=== PATIENT | female | born 1940 | race Caucasian/White ===

== ENCOUNTER → 2017-04-20 08:45 | Outpatient (CLI) | payer MEDICARE, OTHER, SELFPAY ==
[2017-04-20 09:14] VITALS: BP 136/66; PULSE 72; RESP 18; TEMP 36.6; O2SAT 100; BMI 26.2
[2017-04-20] MEDS: DiphenhydrAMINE 25 MG Capsule PO (09:38)
[2017-04-20] MEDS: Acetaminophen 325 MG Tablet 650 MG PO (09:38)
[2017-04-20] MEDS: Hydrocortisone Sod Succinate 100 MG/2 ML Vial IV (09:40)
[2017-04-20 10:07] VITALS: BP 114/52; PULSE 60; RESP 16; TEMP 36.1; O2SAT 97
[2017-04-20 11:13] VITALS: BP 104/51; PULSE 66; RESP 16; TEMP 36.3; O2SAT 99
[2017-04-20 12:05] VITALS: BP 114/60; PULSE 69; RESP 16; TEMP 36.6; O2SAT 100
[2017-04-20 12:32] VITALS: BP 113/60; PULSE 73; RESP 16; TEMP 36.8; O2SAT 98
[2017-04-20 13:54] VITALS: BP 95/68; PULSE 79; RESP 16
== END ==
PROVIDERS: Family Provider Internal Medicine; PCP Internal Medicine; Visit Provider Internal Medicine Hematology & Oncology
DX: Z51.89 Encounter for other specified aftercare (principal); K92.2 Gastrointestinal hemorrhage, unspecified; N28.9 Disorder of kidney and ureter, unspecified
CPT/HCPCS: 36430; 86850; 86900; 86920; 86922; J7040; P9016; A4216

== ENCOUNTER 2017-06-20 16:34 | Emergency (ER) | payer MEDICARE, OTHER, SELFPAY ==
[2017-06-20 16:35] VITALS: BP 149/92; PULSE 88; RESP 18; TEMP 36.8; O2SAT 100; BMI 27.3
[2017-06-20 17:50] LABS: Mucous, Urine 0 SEEN /hpf (<or=2+)
[2017-06-20 18:08] LABS: Color, Urine Straw (Yellow); Glucose, Dipstick Normal (Normal); Ketone-Dipstick Negative (Negative); Leukocyte Esterase-Dipstick 500 /ul (Negative); Nitrite-Dipstick Negative (Negative); Occult Blood-Urine 150 /ul (Negative); Protein-Dipstick 15 mg/dl (Negative); Urine Bilirubin Dipstick Negative (Negative); Urine Clarity Clear (Clear); Urine Urobilinogen Normal (Normal)
[2017-06-20 18:23] LABS: Bacteria 1+ /hpf (None Seen); Red Blood Cells-Urine 0-5 SEEN /hpf (0-5); Squamous Epithelial Cells - UA 0-5 SEEN /hpf (5-10); White Blood Cells 25-50 SEEN /hpf (0-5)
--- NOTE | 2017-06-20 18:33 | ED.VISSUMM ---
- ER Visit Summary Date of Service: 06/20/17 Chief Complaint: Urinary tract infection History of Present Illness: The patient is a 77 F who states last night she began to have dysuria and urinary frequency. She notes some chills. States that morning she had a small amount of right-sided discomfort. It has been several years since she has had a urinary tract infection. Physical Examination: Afebrile vital signs are stable Gen: Well-nourished well-developed Head: Normocephalic atraumatic Eyes: Perrl EOMI ENT: TMs clear no rhinorrhea moist mucous membranes Neck: Supple no lymphadenopathy no JVD nontender CVS: Regular rate rhythm no murmurs normal S1-S2 Respiratory: No distress clear to auscultation bilaterally chest nontender Abdomen: Soft nontender nondistended normal bowel sounds no masses Back: Nontender Extremity: Nontender no edema Skin: Normal color no rash Neuro: alert orientated ?3 CN II-XII intact normal strength sensation reflexes gait cerebellar Psych: Normal affect normal mood Test Results: Urinalysis shows 25-50 white cells 1+ bacteria Emergency Department Course and Treatment: Given the urinalysis and her symptoms we will treat with Keflex and Pyridium. Urine culture ordered. Impression: 1. Acute cystitis This note was generated with [employer] dictation software. It may contain incorrect words, spelling, and punctuation that were not noted in review of the chart prior to signing ED Disposition - Plan for ED Patient: Disposition: Home or Assisted Living Chief Complaint: Complaint Instructions: ED UTI Cystitis Female Prescriptions: Phenazopyridine HCl [Pyridium] 200 mg PO BID PRN PRN #10 tab PRN Reason: Pain Cephalexin [Keflex] 500 mg PO BID #14 cap Referrals: Gretta Burch DO [Primary Care Provider] - 1 Week if not improving
[2017-06-20] MEDS: Phenazopyridine 95 MG Tablet 190 MG PO (18:49)
[2017-06-20 18:51] VITALS: BP 129/63; PULSE 83; RESP 16; O2SAT 98
== END 2017-06-20 18:55 | disposition home or self-care (01) ==
LOC: ED 18:48
PROVIDERS: Emergency Provider Emergency Medicine; Family Provider Internal Medicine; PCP Internal Medicine
DX: N30.00 Acute cystitis without hematuria (principal); I10 Essential (primary) hypertension; K21.9 Gastro-esophageal reflux disease without esophagitis; Z79.899 Other long term (current) drug therapy; Z87.440 Personal history of urinary (tract) infections
CPT/HCPCS: 81001; 87077; 87086; 87088; 87186; 99283

== ENCOUNTER → 2017-06-29 08:19 | Outpatient (CLI) | payer MEDICARE, OTHER, SELFPAY ==
[2017-06-29] VITALS (7 sets, daily range): BP systolic 100–123; BP diastolic 49–64; PULSE 62–88; RESP 16–18; TEMP 35.9–36.6; O2SAT 97–100; BMI 26.4
[2017-06-29] MEDS: Acetaminophen 325 MG Tablet 650 MG PO (09:03)
[2017-06-29] MEDS: DiphenhydrAMINE 25 MG Capsule PO (09:03)
[2017-06-29] MEDS: Hydrocortisone Sod Succinate 100 MG/2 ML Vial IV (09:03)
== END ==
PROVIDERS: Family Provider Internal Medicine; PCP Internal Medicine; Visit Provider Internal Medicine Hematology & Oncology
DX: Z51.89 Encounter for other specified aftercare (principal); K92.2 Gastrointestinal hemorrhage, unspecified; N18.3 Chronic kidney disease, stage 3 (moderate)
CPT/HCPCS: 36430; 86850; 86900; 86920; 86922; J7040; P9016; A4216

== ENCOUNTER → 2018-06-14 08:34 | Outpatient (CLI) | payer MEDICARE, OTHER, SELFPAY ==
[2018-06-14 08:48] VITALS: BP 137/55; PULSE 67; RESP 16; TEMP 36.6; O2SAT 100; BMI 26.5
[2018-06-14] MEDS: Acetaminophen 325 MG Tablet 650 MG PO (09:06)
[2018-06-14] MEDS: DiphenhydrAMINE 25 MG Capsule PO (09:06)
[2018-06-14] MEDS: Hydrocortisone Sod Succinate 100 MG/2 ML Vial IV (09:07)
[2018-06-14 09:24] VITALS: BP 137/55; PULSE 67; RESP 16; TEMP 36.6; O2SAT 100
[2018-06-14 09:39] VITALS: BP 107/58; PULSE 67; RESP 18; TEMP 36.6; O2SAT 100
[2018-06-14 10:39] VITALS: BP 121/66; PULSE 69; RESP 16; TEMP 36.5; O2SAT 100
[2018-06-14 11:39] VITALS: BP 140/60; PULSE 74; RESP 18; TEMP 36.4; O2SAT 100
== END ==
PROVIDERS: Family Provider Internal Medicine; PCP Internal Medicine; Referring Provider Internal Medicine Hematology & Oncology; Visit Provider Internal Medicine Hematology & Oncology
DX: D64.9 Anemia, unspecified (principal); K92.2 Gastrointestinal hemorrhage, unspecified
CPT/HCPCS: 36430; 86644; 86850; 86900; 86920; 86922; J7040; P9040; A4216

== ENCOUNTER → 2018-06-28 08:14 | Outpatient (CLI) | payer MEDICARE, OTHER, SELFPAY ==
[2018-06-14 08:48] VITALS: BMI 26.5
[2018-06-28] VITALS (10 sets, daily range): BP systolic 117–149; BP diastolic 49–65; PULSE 67–95; RESP 16–18; TEMP 36.3–36.9; O2SAT 98–100; BMI 26.5
[2018-06-28] MEDS: Acetaminophen 325 MG Tablet 650 MG PO (08:35)
[2018-06-28] MEDS: Hydrocortisone Sod Succinate 100 MG/2 ML Vial IV (08:36)
[2018-06-28] MEDS: DiphenhydrAMINE 25 MG Capsule PO (08:36)
--- NOTE | 2018-06-28 14:13 | NURSING ---
Patient blood still transfusing at 1400, accidentally charted on wrong patient.
== END ==
PROVIDERS: Family Provider Internal Medicine; PCP Internal Medicine; Referring Provider Internal Medicine Hematology & Oncology; Visit Provider Internal Medicine Hematology & Oncology
DX: Z51.89 Encounter for other specified aftercare (principal); D64.9 Anemia, unspecified; K92.2 Gastrointestinal hemorrhage, unspecified
CPT/HCPCS: 36430; 86850; 86870; 86900; 86920; 86922; J7040; J7050; P9016; A4216

== ENCOUNTER → 2018-07-24 13:44 | Outpatient (CLI) | payer MEDICARE, OTHER, SELFPAY ==
[2018-06-28 08:47] VITALS: BMI 26.5
--- NOTE | 2018-07-24 13:48 | RAD_ITS ---
STUDY: X-RAY - RIGHT SHOULDER REASON FOR EXAM: Female, 78 years old. UNABLE TO MOVE THE SHOULDER. SEVERE PAIN TECHNIQUE: 3 view(s) of the shoulder. COMPARISON: None. FINDINGS: Normal glenohumeral articulation. Normal acromioclavicular joint. Normal acromion. Normal humeral head and visualized proximal humerus. The soft tissue structures are unremarkable. There is no demonstrated fracture. Normal visualized pulmonary apex. RAD/Shoulder min 2 Views IMPRESSION: Normal x-ray examination of the shoulder. Electronically Signed: Diaz Amaya MD at 15:53 EDT , Service support ,
== END ==
PROVIDERS: Family Provider Internal Medicine; PCP Internal Medicine; Referring Provider Nurse Practitioner; Visit Provider Nurse Practitioner
DX: M25.511 Pain in right shoulder (principal)
CPT/HCPCS: 73030

== ENCOUNTER → 2018-08-02 17:33 | Outpatient (CLI) | payer MEDICARE, OTHER, SELFPAY ==
[2018-07-24 14:44] VITALS: BMI 26.5
--- NOTE | 2018-08-02 17:43 | MRI_ITS ---
STUDY: MRI RIGHT SHOULDER REASON FOR EXAM: Female, 78 years old. Pain. TECHNIQUE: Standardized fat and water weighted pulse sequences were obtained in all 3 orthogonal planes. COMPARISON: X-ray July 24, 2018 FINDINGS: There is rotator cuff tear of the anterior distal supraspinatus tendon, series 7 images 13/20 and 14/20. There is infraspinatus tendinosis with tendon thickening, but without a demonstrated tendon tear. There is subscapularis tendinosis with tendon thickening, but without a demonstrated tendon tear. Normal teres minor tendon. Normal supraspinatus muscle. Normal infraspinatus muscle. Normal subscapularis muscle. Normal teres minor muscle. There is a small volume joint effusion of the glenohumeral joint. Normal humeral head and visualized proximal humerus. There is tear at the biceps anchor with subluxation of the long head of the biceps . There is tear of the superior labrum. Normal capsulo- ligamentous complex. Normal rotator interval. Normal acromioclavicular articulation. There is a Type II morphology (curved), with a neutral orientation. There is mild fluid distention of the subacromial bursa, consistent with mild subacromial-subdeltoid bursitis. Normal visualized coracohumeral and coracoacromial ligaments. Normal quadrilateral space. Normal axillary space. Normal deltoid muscle. Normal trapezius muscle. MRI/Upper Ext Joint Only(Routine) IMPRESSION: Rotator cuff tear of the supraspinatus tendon. Tear of the superior labrum and biceps anchor with subluxation of the long head of the biceps. Electronically Signed: Jet Ledezma MD at 12:54 EDT , Service support ,
== END ==
PROVIDERS: Family Provider Internal Medicine; PCP Internal Medicine; Referring Provider Orthopaedic Surgery; Visit Provider Orthopaedic Surgery
DX: M75.101 Unspecified rotator cuff tear or rupture of right shoulder, not specified as traumatic (principal); M25.511 Pain in right shoulder
CPT/HCPCS: 73221

== ENCOUNTER 2018-08-13 15:46 | Outpatient (RCR) | payer MEDICARE, OTHER, SELFPAY ==
[2018-08-07 13:13] VITALS: BMI 26.5
--- NOTE | 2018-08-13 16:58 | HP.PTEVAL_ITS ---
Patient's Visit Information IMANI JEFFRIES is a 78 year old F referred to Physical Therapy by Shahriar Ortiz DO with a diagnosis of Shoulder- RTC Tear and SLAP. Date of Evaluation: 08/13/18 Physical Therapist: Machelle Gomes DPT - Visit Plan Frequency: 1x/Week Duration: 4 Weeks Plan: perform I HEP- will call if questions or wants to attempt to attend therapy sessions - Subjective Findings: Right shoulder pain- - insidious onsest. Took Tylenol and BioFreeze on it and then went to the chiropractor. He put it back in place- and told her to ice every 20 minutes. X-rays which were negative- Referred to for an MRI- which showed RTC tear and superior Labral tear. Saw Dr. Barreto- options are surgery, cortisone injection or therapy. Declined surgery- opted for PT to start. 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 Can't make plans for therapy so she needs a home exercise program. If it continues to hurt she can have a Cortisone i njection. Right hand dominate. Does not really move her arm a lot- Pain is located in the shoulder does not radiate. No N/T. Describes pain as sharp/shooting pains. Babies the shoulder. Modifying dressing and is helping. No MOTLEY, blurred vision or dizziness. Fully I prior to injury. Sleep: not disturbed- takes 2 Tylenol and Biofreeze before bed PMHx/Meds: see list from Dr. Barreto. - Objective Posture: significant guarding of the right UE. Gait: no LE deviation but guarding of the right UE. Palpation: tender along anterior shoulder, medial border of the scapula and down the deltoid. ROM: Wrist/Elbow: WNL, Shoulder AROM: flexion- 80 degrees, Abduction: 40 degrees, IR: to bra line, ER: 40 degrees, Catches in AROM and AAROM PROM: WNL in all planes. Strength: 2+/5 in available range shoulder elbow: 4-/5 Wrist: 4+/5 all with pain in the shoulder. Sensation/Reflex: WNL - Goals Goal 1:: Patient will be I with HEP Goal Time Frame: 4-6 Weeks - Rehabilitation Potential Physical Therapy Diagnosis: Patient presents with hypomobility- she has dec reased ROM, strength and muscular endurance leading to poor posture and increased pain with ADL's. Rehabilitation Potential: Fair - Anticipated Interventions Patient/Client Instruction: Educate patient on: Benefits of Fitness Program Therapeutic Exercise to Include: Strength training, Body mechanics, Postural training, Passive ROM, Active ROM, Scapular Strength/Stabilization For the Purpose of:: To improve muscle performance and motor function Thank you for the opportunity to evaluate your patient. For Medicare and Medicare HMO plans, please review the plan of care and approve it. It will need to be FAXED BACK to us at [phone] for Medicare purposes. For Medicare only, by signing this I certify the plan of care. Please let me know if there are questions or concerns regarding this plan of care. Physician Signature: Date:
--- NOTE | 2018-10-29 14:39 | HP.PTDCNRP_ITS ---
HP - Discharge Summary (1) - Patient Information IMANI JEFFRIES was seen in my office for initial evaluation on 08/13/18. The following Plan of Care was established for this patient: Initial Frequency: 1x/Week Initial Duration: 4 Weeks - Anticipated Interventions Patient/Client Instruction: Educate patient on: Benefits of Fitness Program Therapeutic Exercise to Include: Strength training, Body mechanics, Postural t raining, Passive ROM, Active ROM, Scapular Strength/Stabilization For the Purpose of:: To improve muscle performance and motor function This patient was last seen in our office . Pertinent comments regarding their Physical therapy will appear below: Patient has not attended PT in over 6 weeks and is appropriate for d/c and to return to MD for further evaluation as needed. At this point I will be discontinuing this patient from physical therapy. I would be happy to see this patient again in the future if found appropriate by the physician. Thank you! AUBREE MendezT
== END 2018-08-13 19:00 | disposition home or self-care (01) ==
LOC: PT 15:46
PROVIDERS: Family Provider Internal Medicine; PCP Internal Medicine; Referring Provider Orthopaedic Surgery; Visit Provider Orthopaedic Surgery
DX: M75.101 Unspecified rotator cuff tear or rupture of right shoulder, not specified as traumatic (principal); S43.431D Superior glenoid labrum lesion of right shoulder, subsequent encounter
CPT/HCPCS: 97110; 97161

== ENCOUNTER → 2018-09-06 07:49 | Outpatient (CLI) | payer MEDICARE, OTHER, SELFPAY ==
[2018-08-07 13:13] VITALS: BMI 26.5
[2018-09-06] MEDS: Acetaminophen 325 MG Tablet 650 MG PO (08:11)
[2018-09-06] MEDS: DiphenhydrAMINE 25 MG Capsule PO (08:19)
[2018-09-06] MEDS: Hydrocortisone Sod Succinate 100 MG/2 ML Vial IV (08:26)
[2018-09-06 08:30] VITALS: BP 122/64; PULSE 66; RESP 16; TEMP 36.6; O2SAT 100; BMI 26.2
[2018-09-06 08:58] VITALS: BP 129/59; PULSE 61; RESP 16; TEMP 36.9; O2SAT 100
[2018-09-06 09:58] VITALS: BP 127/55; PULSE 72; RESP 16; TEMP 36.8; O2SAT 99
[2018-09-06 11:19] VITALS: BP 108/59; PULSE 76; RESP 16; TEMP 36.8; O2SAT 99
== END ==
PROVIDERS: Family Provider Internal Medicine; PCP Internal Medicine; Referring Provider Internal Medicine Hematology & Oncology; Visit Provider Internal Medicine Hematology & Oncology
DX: Z51.89 Encounter for other specified aftercare (principal); K92.2 Gastrointestinal hemorrhage, unspecified; D64.9 Anemia, unspecified
CPT/HCPCS: 36430; 86850; 86900; 86920; 86922; J7040; P9016; A4216

== ENCOUNTER → 2018-09-27 07:50 | Outpatient (CLI) | payer MEDICARE, OTHER, SELFPAY ==
[2018-09-06 08:30] VITALS: BMI 26.2
[2018-09-27] VITALS (7 sets, daily range): BP systolic 117–141; BP diastolic 62–86; PULSE 63–80; RESP 16–18; TEMP 36.2–37; O2SAT 9–100; BMI 25.9
[2018-09-27] MEDS: DiphenhydrAMINE 25 MG Capsule PO (08:07)
[2018-09-27] MEDS: Hydrocortisone Sod Succinate 100 MG/2 ML Vial IV (08:07)
[2018-09-27] MEDS: Acetaminophen 325 MG Tablet 650 MG PO (08:07)
== END ==
PROVIDERS: Family Provider Internal Medicine; PCP Internal Medicine; Referring Provider Internal Medicine Hematology & Oncology; Visit Provider Internal Medicine Hematology & Oncology
DX: K92.2 Gastrointestinal hemorrhage, unspecified (principal); Z51.89 Encounter for other specified aftercare
CPT/HCPCS: 36430; 86850; 86900; 86920; 86922; J7040; P9016; A4216

== ENCOUNTER → 2018-11-01 08:52 | Outpatient (CLI) | payer MEDICARE, OTHER, SELFPAY ==
[2018-09-27 07:55] VITALS: BMI 25.9
[2018-11-01 09:00] VITALS: BP 135/53; PULSE 58; RESP 16; TEMP 36.1; O2SAT 100
[2018-11-01] MEDS: DiphenhydrAMINE 25 MG Capsule PO (10:54)
[2018-11-01] MEDS: Acetaminophen 325 MG Tablet 650 MG PO (10:54)
[2018-11-01] MEDS: Hydrocortisone Sod Succinate 100 MG/2 ML Vial IV (10:57)
[2018-11-01 11:28] VITALS: BP 135/53; PULSE 58; RESP 16; TEMP 36.1; O2SAT 100
[2018-11-01 11:43] VITALS: BP 118/59; BP 81/43; PULSE 67; PULSE 94; RESP 16; TEMP 36.4; O2SAT 100
[2018-11-01 12:43] VITALS: BP 130/64; PULSE 64; RESP 16; TEMP 36.3; O2SAT 100
[2018-11-01 13:56] VITALS: BP 130/67; PULSE 77; RESP 16; TEMP 36.6; O2SAT 100
== END ==
PROVIDERS: Family Provider Internal Medicine; PCP Internal Medicine; Referring Provider Internal Medicine Hematology & Oncology; Visit Provider Internal Medicine Hematology & Oncology
DX: Z51.89 Encounter for other specified aftercare (principal); K92.2 Gastrointestinal hemorrhage, unspecified; M06.9 Rheumatoid arthritis, unspecified
CPT/HCPCS: 36430; 86850; 86900; 86901; 86920; 86922; J7040; P9016; A4216

== ENCOUNTER → 2018-11-22 09:48 | Outpatient (CLI) | payer MEDICARE, OTHER, SELFPAY ==
[2018-09-27 07:55] VITALS: BMI 25.9
[2018-11-22] MEDS: Acetaminophen 325 MG Tablet 650 MG PO (10:02)
[2018-11-22] MEDS: DiphenhydrAMINE 25 MG Capsule PO (10:03)
[2018-11-22 10:16] VITALS: BP 132/68; PULSE 71; RESP 16; TEMP 36.1; O2SAT 97; BMI 25.4
[2018-11-22] MEDS: Hydrocortisone Sod Succinate 100 MG/2 ML Vial IV (10:31)
[2018-11-22 11:02] VITALS: BP 130/66; PULSE 62; RESP 16; TEMP 36.4; O2SAT 100
[2018-11-22 12:02] VITALS: BP 113/54; PULSE 62; RESP 16; TEMP 36.3; O2SAT 97
[2018-11-22 13:46] VITALS: BP 123/53; PULSE 77; RESP 16; TEMP 36.6; O2SAT 100
== END ==
PROVIDERS: Family Provider Internal Medicine; PCP Internal Medicine; Referring Provider Internal Medicine Hematology & Oncology; Visit Provider Internal Medicine Hematology & Oncology
DX: Z51.89 Encounter for other specified aftercare (principal); D50.0 Iron deficiency anemia secondary to blood loss (chronic)
CPT/HCPCS: 36430; 86850; 86900; 86901; J7040; P9016; A4216

== ENCOUNTER 2018-12-05 10:06 | Emergency (ER) | payer MEDICARE, OTHER, SELFPAY ==
[2018-11-22 10:16] VITALS: BMI 25.4
[2018-12-05 10:08] VITALS: BP 154/74; PULSE 73; RESP 17; TEMP 36.7; O2SAT 100; BMI 25.2
--- NOTE | 2018-12-05 10:37 | CT_ITS ---
STUDY: CT ABDOMEN AND PELVIS WITH CONTRAST REASON FOR EXAM: Female, 78 years old. Left lower quadrant pain with pain radiating down the legs RADIATION DOSAGE (If Supplied By Facility): CTDIvol = ( 10.95 ) mGy, DLP = ( 790.13 ) mGycm TECHNIQUE: Transaxial images were obtained from the dome of the diaphragm to the symphysis pubis without oral contrast. IV Isovue 300 100CC was administered. Sagittal and coronal images were reconstructed. Individualized dose optimization techniques were used for this CT. COMPARISON: Previous CT scan of the abdomen and pelvis obtained on 11/09/2016. FINDINGS: The visualized lung bases are unremarkable. The visualized portions of the heart are within normal limits. Small sliding hiatal hernia is identified.. The liver is normal. The spleen is normal. The adrenal glands are normal. The head, body, and tail of the pancreas are normal. The kidneys are normal with no evidence of calyceal calculi, masses, or obstructive uropathy seen. The abdominal aorta appears to be normal and no periaortic lymphadenopathy is seen. No abdominal masses or lesions are identified.. A CT scan of the pelvis was performed and shows the common iliac vessels, external iliac vessels and common femoral vessels to be normal along their course and distribution. The appendix is identified and is normal. The cecum is identified and appears normal and no pericecal inflammatory reaction is seen. Multiple diverticula are noted along the sigmoid portion colon with no evidence of diverticulitis. There is mild arthritic change or spur formation noted off of the lumbar vertebral bodies with degenerative discogenic changes noted at the L2-3, L3-4 and L5-S1 levels. CT/Abdomen/Pelvis W IV Cont ONLY IMPRESSION: Normal CT scan of the abdomen and pelvis. Electronically Signed: Nelson Singh, at 13:04 EDT Tel , Service support ,
[2018-12-05] MEDS: Ondansetron 4 MG/2 ML Vial IV (11:04)
[2018-12-05] MEDS: Morphine 4 MG/ML Syringe IV (11:05)
[2018-12-05] MEDS: 0.9% Normal Saline 1,000 ML 1000 ML IV (11:05)
--- NOTE | 2018-12-05 11:10 | ED.VISSUMM ---
- ER Visit Summary Date of Service: 12/05/18 Chief Complaint: Left hip pain History of Present Illness: The patient is a 78 F with left hip pain. The patient said the pain started about 2 days ago. It radiates up into her lower left abdomen and left groin. Worse with walking. Better with Tylenol and rest. Patient has a history of watermelon stomach. This causes GI bleeding. She is treated at the [facility] for this. She requires transfusions periodically and also injections to boost her hemoglobin. She denies any injury. Denies any other new or associated symptoms. Physical Examination: Afebrile and vital signs unremarkable. Heart regular. Lungs clear. Abdomen tender to palpation in the left pelvic region. Hip shows negative logroll. No shortening. Neurovascular intact. Test Results: We will check labs, urinalysis, CT. Emergency Department Course and Treatment: Patient treated with morphine, Zofran, fluids while awaiting results. Hemoglobin stable 8.5. Chemistry panel unremarkable. Lipase, coags, urinalysis unremarkable. CT abdomen was normal. X-rays of her femur were normal. Patient was able to ambulate with assistance. She normally uses a cane. I do not believe she has a hip fracture clinically or based on her x-ray. Patient will be referred for outpatient follow-up. Return for any new or worsening issues. She was given a short course of pain medicine. Treatment Plan: As above Disposition: Discharge Impression: 1. Left lower quadrant abdominal pain 2. Left hip pain This note was generated with [employer] dictation software. It may contain incorrect words, spelling, and punctuation that were not noted in review of the chart prior to signing ED Disposition - Plan for ED Patient: Referrals: Gretta Burch DO [Primary Care Provider] -
[2018-12-05 11:33] LABS: Absolute Lymphocyte Count 0.62 X10^3/uL (0.83-4.51); Absolute Neutrophil Count 4.1 X10^3/uL (2.0-7.7); Basophil# 0.03 X10^3/uL; Basophil% 0.6 % (0-1); Eosinophil# 0.02 X10^3/uL; Eosinophils% 0.4 % (0-5); Hematocrit 24.5 % (37-47); Hemoglobin 8.5 g/dL (12.0-15.0); Lymphocyte # 0.62 X10^3/ul (4.0); Lymphocyte % 12.3 % (19-41); Mean Corp Hgb Conc 34.7 g/dL (32-36); Mean Corpuscular Hgb 35.6 pg (27.0-32.0); Mean Corpuscular Volume 102.5 fL (81-99); Mean Platelet Vol. 10.1 fl (6.2-12.0); Monocyte# 0.26 X10^3/uL; Monocyte% 5.2 % (0-10); NRBC Flagged by Analyzer 0 % (0-5); Neutrophil % 81.3 % (47-70); Platelet Count 243 K/mm3 (150-450); RBC Distribution Width SD 55.3 fl (35.1-43.9); Red Blood Count 2.39 M/mm3 (4.2-5.4)
[2018-12-05 11:49] LABS: Partial Thromboplast Time 28.7 Seconds (24.1-36.2)
[2018-12-05 12:03] LABS: ALB/GLOB Ratio 1.3 RATIO (0.9-2.4); AST(SGOT) 24 U/L (15-37); Alanine Aminotransfer ALT/SGPT 25 U/L (13-56); Albumin, Serum 3.7 g/dL (3.2-5.0); Alkaline Phosphatase 69 U/L (45-117); Anion Gap 8 (5-15); BUN 10 mg/dL (7-18); BUN/Creat Ratio 14.9 RATIO (10-20); Chloride 110 mmol/L (98-107); Creatinine, Serum 0.67 mg/dL (0.55-1.02); EST Glomerular Filtration Rate 91 mL/min (>60); Est Glom Filt Rate - Afr Amer 110 mL/min (>60); Estimated Creatinine Clearance 34.38 ml/min; Globulin 2.8 g/dL (2.2-4.2); Glucose 103 mg/dL (74-106); Lipase 87 U/L (73-393); Potassium 3.4 mmol/L (3.5-5.1); Protein, Total 6.5 g/dL (6.4-8.2); Sodium Level 142 mmol/L (136-145)
[2018-12-05 12:30] LABS: Mucous, Urine 0 SEEN /hpf (<or=2+); Red Blood Cells-Urine 0 SEEN /hpf (0-5); Squamous Epithelial Cells - UA 0 SEEN /hpf (5-10); White Blood Cells 0 SEEN /hpf (0-5)
[2018-12-05 12:51] LABS: Color, Urine Yellow (Yellow); Glucose, Dipstick Normal (Normal); Ketone-Dipstick Negative (Negative); Leukocyte Esterase-Dipstick Negative /ul (Negative); Nitrite-Dipstick Negative (Negative); Occult Blood-Urine Negative /ul (Negative); Protein-Dipstick Negative (Negative); Specific Gravity, Urine 1.005 (1.002-1.030); Urine Bilirubin Dipstick Negative (Negative); Urine Clarity Clear (Clear); Urine Urobilinogen Normal (Normal)
[2018-12-05 12:55] LABS: Bacteria RARE /hpf (None Seen)
[2018-12-05 13:03] VITALS: BP 115/65; RESP 16; O2SAT 100
--- NOTE | 2018-12-05 14:12 | RAD_ITS ---
STUDY: X-RAY - LEFT FEMUR REASON FOR STUDY: Female, 78 years old. Sudden onset of severe left hip pain TECHNIQUE: 4 view(s) of the femur. COMPARISON: None. FINDINGS: Studies of the left femur show no evidence of fracture, dislocation, or bony destruction. RAD/Femur Min 2 Views IMPRESSION: Normal x-ray examination of the femur. Electronically Signed: Nelson Singh, at 15:18 EDT Tel , Service support ,
--- NOTE | 2018-12-05 15:25 | ED.DEP ---
ED Disposition - Plan for ED Patient: Instructions: Hip Strain Prescriptions: Oxycodone HCl/Acetaminophen [Percocet 5/325] 1 tab PO Q6H PRN PRN 3 Days #12 tab PRN Reason: Pain Prescription Printed Referrals: Gretta Burch DO [Primary Care Provider] -
[2018-12-05 15:48] VITALS: BP 121/78; PULSE 66; RESP 18; O2SAT 96
== END 2018-12-05 15:49 | disposition home or self-care (01) ==
LOC: ED 10:31
PROVIDERS: Emergency Provider Emergency Medicine; Family Provider Internal Medicine; PCP Internal Medicine
DX: M25.552 Pain in left hip (principal); R10.32 Left lower quadrant pain; Z86.73 Personal history of transient ischemic attack (TIA), and cerebral infarction without residual deficits
CPT/HCPCS: 73552; 74177; 80053; 81001; 83690; 85025; 85610; 85730; 86850; 86900; 86901; 96361; 96374; 96375; 99283; J7030; Q9967; A4216; J2405

== ENCOUNTER 2018-12-06 11:23 | Observation (INO) | payer MEDICARE, OTHER, SELFPAY ==
[2018-12-05 10:08] VITALS: BMI 25.2
[2018-12-06] VITALS (11 sets, daily range): BP systolic 107–141; BP diastolic 47–89; PULSE 66–86; RESP 10–27; TEMP 36.4–36.7; O2SAT 95–100; BMI 26.9; BMI 25.4
--- NOTE | 2018-12-06 11:57 | EKG12_ITS ---
Test Reason : SYNCOPE Blood Pressure : / mmHG Vent. Rate : 062 BPM Atrial Rate : 062 BPM P-R Int : 174 ms QRS Dur : 082 ms QT Int : 458 ms P-R-T Axes : 011 001 010 degrees QTc Int : 464 ms Sinus rhythm with Premature atrial complexes Nonspecific ST and T wave abnormality Abnormal ECG Confirmed by FRANCOISE GROSS, BROCK ([id number]), editor greeting card SORIN CELAYA ([id number]) on 12/11/2018 9:42:54 A M Referred By: Sharon Joseph Confirmed By:JJ OWUSU MD
[2018-12-06] MEDS: Ondansetron 4 MG/2 ML Vial IV (12:29)
[2018-12-06 13:12] LABS: Absolute Lymphocyte Count 0.42 X10^3/uL (0.83-4.51); Absolute Neutrophil Count 4.6 X10^3/uL (2.0-7.7); Basophil# 0.03 X10^3/uL; Basophil% 0.6 % (0-1); Eosinophil# 0.06 X10^3/uL; Eosinophils% 1.1 % (0-5); Hematocrit 24.4 % (37-47); Hemoglobin 7.9 g/dL (12.0-15.0); Lymphocyte # 0.42 X10^3/ul (4.0); Lymphocyte % 7.7 % (19-41); Mean Corp Hgb Conc 32.4 g/dL (32-36); Mean Corpuscular Hgb 34.1 pg (27.0-32.0); Mean Corpuscular Volume 105.2 fL (81-99); Mean Platelet Vol. 9.8 fl (6.2-12.0); Monocyte# 0.27 X10^3/uL; NRBC Flagged by Analyzer 0.4 % (0-5); Neutrophil # 4.62 X10^3/uL (2.7-7.7); POSITIVE DIFFERENTIAL YES; Platelet Count 213 K/mm3 (150-450); RBC Distribution Width CV 15.5 % (11.6-14.6); RBC Distribution Width SD 57.2 fl (35.1-43.9); Red Blood Count 2.32 M/mm3 (4.2-5.4); White Blood Count 5.4 K/mm3 (4.4-11.0)
[2018-12-06 13:14] LABS: Differential Indicated SCAN CRITERIA MET
[2018-12-06 13:24] LABS: Anion Gap 7 (5-15); BUN 10 mg/dL (7-18); BUN/Creat Ratio 12.2 RATIO (10-20); Calcium,Total 8.3 mg/dL (8.5-10.1); Chloride 111 mmol/L (98-107); Creatinine, Serum 0.82 mg/dL (0.55-1.02); EST Glomerular Filtration Rate 72 mL/min (>60); Est Glom Filt Rate - Afr Amer 87 mL/min (>60); Estimated Creatinine Clearance 41.92 ml/min; Glucose 114 mg/dL (74-106); Potassium 3.3 mmol/L (3.5-5.1); Sodium Level 141 mmol/L (136-145)
[2018-12-06 13:46] LABS: Macrocytosis 1+; Polychromasia 1+
--- NOTE | 2018-12-06 14:47 | HP.PCM_ITS ---
Problem List (1) Syncope and collapse Status: Acute (2) Hip pain Status: Acute Qualifiers: Laterality: left Qualified Code(s): M25.552 - Pain in left hip (3) HLD (hyperlipidemia) Status: Chronic Qualifiers: Hyperlipidemia type: unspecified Qualified Code(s): E78.5 - Hyperlipidemia, unspecified (4) Watermelon stomach Status: Chronic (5) Chronic anemia Status: Chronic (6) Hypothyroidism Status: Chronic Qualifiers: Hypothyroidism type: unspecified Qualified Code(s): E03.9 - Hypothyroidism, unspecified (7) History of CVA (cerebrovascular accident) Status: Chronic (8) GERD (gastroesophageal reflux disease) Status: Chronic Qualifiers: Esophagitis presence: esophagitis presence not specified Qualified Code(s): K21.9 - Gastro-esophageal reflux disease without esophagitis History of Present Illness Date of Admission: 12/06/18 Chief Complaint: Syncopal event The patient is a 78 y/o F w/ PMHx: Hx CVA without deficit, Hx Rheumatic Fever, HTN, HLD, GERD, Hypothyroidism, Fe Deficiency anemia w/ chronically black stools with Watermelon Stomach following at [facility] w/ Argon therapy with serial PRBC administration needs who presented initially to the [facility] ED on 12/05/18 with complaint at that time of intractable L hip pain, worse with any activity, improved with rest and Tylenol administration with no specific injury or recent alterations in activity with chronic cane use and also L groin lower abdominal radiation of pain with unremarkable plain film of the L hip and pelvis as well as unremarkable CT A/P who now re-presents to the [facility] ED on 12/06/18 with improvement to her L hip pain with history of syncopal event following chiropractic manipulations, while seated in the chair, lasting seconds with complaint of lightheadedness, nausea following attempting to get off the table with recent nausea and emesis bouts with recent start on oxycodone the day prior for her intractable hip pain, administered narcan per the EMS at that time. ED work-up included T 98.1, heart rate 71, BP 141/65, respiratory rate 18, 98% on room air, CBC with WBC 5.4, hemoglobin 7.9 noted to be 8.5 the day prior, platelet 213 with minimal shift, BMP with potassium 3.3, chloride 111, glucose 114, troponin less than 0.015, EKG with SR without acute evidence of ischemia with PACs. In the ED patient missed her normal saline, Zofran, Narcan therapy. Past Medical History Past Medical History (Chronic Problems): Chronic Problems HLD (hyperlipidemia) (Chronic) Watermelon stomach (Chronic) Chronic anemia (Chronic) Hypothyroidism (Chronic) History of CVA (cerebrovascular accident) (Chronic) GERD (gastroesophageal reflux disease) (Chronic) Cerebrovascular disease (Chronic) Remote stroke no residual deficit Rheumatic fever without heart involvement (Chronic) HTN (hypertension) (Chronic) Allergies niacin Adverse Reaction (Verified 12/05/18 10:08) REDNESS/FLUSHING TELEMETRY PADS Allergy (Uncoded 12/05/18 10:08) Rash Home Medications: Ambulatory Orders Medication Instructions Recorded Levothyroxine [Synthroid] 25 mcg PO DAILY 12/05/14 Losartan/Hydrochlorothiazide 1 tab PO DAILY 12/05/14 [Hyzaar 100-12.5 Tablet] Metoprolol Tartrate [Lopressor 50 mg PO BID 12/05/14 (beta monico)] Potassium Chloride [K-Dur] 10 meq PO BID 12/05/14 Cyanocobalamin [Vitamin B12] 500 mcg PO DAILY@0800 01/27/15 Ascorbic Acid [Vitamin C] 500 mg PO TIDCM #90 tablet 03/02/16 Ergocalciferol [Vitamin D] 50,000 unit PO WE 05/10/16 Omeprazole [Prilosec] 40 mg PO BID 11/09/16 Rosuvastatin Calcium [Crestor] 10 mg PO DAILY 11/09/16 Ferrous Sulfate [Iron] 325 mg PO BID 12/05/18 Multivit-Min/Iron/Folic/Lutein 1 ea PO DAILY 12/06/18 [Centrum Silver Women Tablet] Surgical History: tonsillectomy Psychiatric History: No pertinent psych hx [employer] History: No pertinent [employer]OM[employer] history Lives: Spouse/ Significant Other Smoking Status: Former smoker - Quit current tobacco usage greater than 40 to 45 years prior, prior to this 1 pack/day since she was a teenager. Tobacco Use: Non-smoker Alcohol: None Drugs: None - *Family History Sibling History Items: Dementia Paternal History Items: Heart Disease Maternal History Items: Diabetes, Heart Disease, No pertinent history Review of Systems Constitutional: Reports: Anorexia, Malaise, Weakness, Fatigue. Denies: Chills, Fever, Weight Change HEENT: Denies: Head Aches, Sinus Congestion, Sinus Drainage Cardiovascular: Reports: Light Headedness. Denies: Chest Pain, Palpitations Respiratory: Denies: Cough, Shortness of breath at rest, Sputum production Gastrointestinal: Reports: Nausea, Vomiting, - - Chronically dark appearing stools.. Denies: Abdominal Pain Genitourinary: Denies: Dysuria Musculoskeletal: Reports: Joint Pain, Leg Pain. Denies: Joint Tenderness Skin: Denies: Rash, Wounds Neurological: Denies: Numbness, Tingling, Focal weakness Psychiatric: Denies: Anxiety, Depression, Homicidal Ideations, Suicidal Ideations Hematologic/ Lymphatic: Reports: Anemia, Easy Bleeding. Denies: Easy Bruising VTE Information - Inpt Only VTE Present on Admission: No VTE Mechan Device Prophylaxis: SCD's VTE Pharm Prophylaxis ordered?: No Reason prophylaxis not ordered:: Medical Contraindication Patient Problems: Active and Suspected Problems Syncope and collapse (Acute) Hip pain (Acute) Subjective: Seated upright in the ED bed, fatigued appearing, notes feeling improved since initial presentation, nausea resolved with bout of emesis in the ED upon initial evaluation as well as prior to that. Objective: Physical Examination: General: awake, alert, oriented x 3 and cooperative, seated upright in the ED bed, fatigued appearing. Skin: normal color, turgor, no icterus, cyanosis. HEENT: AT/NC, EOMI, PERRLA, dry MM, no carotid bruits or JVD noted. Lungs: CTA bilaterally, moderate effort, moderate decrease BL bases, no rales, ronchi or wheezing. Heart: Regular rate and rhythm; no gallop, rub audible. Abdomen: soft, NTTP, ND, mildly hyperactive BS, no HSM. Extremities: no cyanosis, clubbing, or edema. Neurological: patient awake, alert, oriented x 3; cognitive function intact; pupils equally reactive to light and accomodation; cranial nerves II-XII grossly normal, moving all 4 extremities, no focal deficits, strength moderately to severely global decrease secondary to acute presentation. Psychiatric: affect appears fatigued, flat, no acute evidence of depressive or anxiety feelings. - Physical Exam Vital Signs Temp Pulse Resp BP Pulse Ox 98.1 F 68 18 107/89 H 98 12/06/18 11:25 12/06/18 13:51 12/06/18 13:51 12/06/18 13:51 12/06/18 13:51 Oxygen Delivery Method Room Air Weight: 138 lb 0.15 oz Body Mass Index (BMI) 26.9 Laboratory Tests Past 24 Hrs 12/06/18 12/06/18 13:00 13:00 WBC 5.4 RBC 2.32 L Hgb 7.9 L Hct 24.4 L MCV 105.2 H MCH 34.1 H MCHC 32.4 RDW Std Deviation 57.2 H RDW Coeff of Jeferson 15.5 H Plt Count 213 MPV 9.8 Immature Gran % (Auto) 0.600 Neut % (Auto) 85.0 H Lymph % (Auto) 7.7 L Sumter % (Auto) 5.0 Eos % (Auto) 1.1 Baso % (Auto) 0.6 Absolute Neuts (auto) 4.6 Absolute Lymphs (auto) 0.42 L Nucleated RBC % 0.4 Polychromasia 1+ Macrocytosis 1+ Sodium 141 Potassium 3.3 L Chloride 111 H Carbon Dioxide 23.0 Anion Gap 7 BUN 10 Creatinine 0.82 Estim Creat Clear Calc 41.92 Est GFR (MDRD) Af Amer 87 Est GFR (MDRD) Non-Af 72 BUN/Creatinine Ratio 12.2 Glucose 114 H Calcium 8.3 L Troponin I < 0.015 Assessment/Plan All Active Problems Syncope and collapse (Acute) Hip pain (Acute) Symptomatic anemia (Acute) The patient is a 78 y/o F w/ PMHx: Hx CVA without deficit, Hx Rheumatic Fever, HTN, HLD, GERD, Hypothyroidism, Fe Deficiency anemia w/ chronically black stools with Watermelon Stomach following [facility] w/ Argon therapy with serial PRBC administration needs who presents to the [facility] ED on 12/06/18 with improvement to her L hip pain with history of syncopal event following chiropractic manipulations, while seated in the chair, lasting seconds with complaint of lightheadedness, nausea following attempting to get off the table with recent nausea and emesis bouts with recent start on oxycodone. (1) Syncopal Event without Trauma while Seated: Suspect likely secondary to recent start of narcotic therapy for intractable left hip pain, coupled with recent manipulation. EKG in ED w/ sinus rhythm without evidence of acute ischemia, initial trop normal. Will admit to PCU, place on a monitored bed to assure no acute myocardial infarction with serial cardiac enzymes and EKGs. Will maintain on fall precautions, obtain admission orthostatic and AM orthostatic VS and increase hydration if appropriate, to be cautious will obtain ECHO. PT/OT consultation to ascertain stability and discharge needs. (2) Recent Acute Intractable L Hip Pain: Plain films in the ED w/ unremarkable and CT abdomen pelvis also performed secondary to radiation of discomfort into the groin unremarkable. Patient's hip discomfort has improved since ED presentation today prior, will decrease pain regimen to tramadol, maintain on fall precautions, frequent positioning, anti-emetics, bowel regimen. Will consult PT and OT for evaluation post case management for discharge needs. (3) History of watermelon stomach w/ Chronic GI bleed: Following at [facility], intermittent argon therapy per patient report, serial PRBC administrations nearly q 2 weeks as susceptible to acute on chronic GI bleeds, maintained on iron supplementation, maintained on month sandostatin regimen as well as additional , as noted hemoglobin mild decrease from day prior with no specific change in bowel appearance, trend, maintain on PPI, encourage continued follow-up at . If PRBC necessary with alteration to VS, Hgb < 7, patient does have history of PRBC transfusion reaction. (4) Chronic iron deficiency anemia: Admission hemoglobin 7.9, day prior 8.5, will trend given history of predisposition to GI bleeds with watermelon stomach, continue iron supplementation. (5) Hypothyroidism: Continue home synthroid regimen. (6) Hypertension: Continue home regimen including losartan, hydrochlorothiazide, metoprolol with specific hold parameters, PRN hydralazine. (7) Hyperlipidemia: Continue home statin regimen. (8) Hx CVA: Maintain on BP regimen, statin therapy, defer ASA given GI bleed predisposition. (9) GERD: Continue home PPI. (10) DVT Prophylaxis: SCDs, defer chemoprophylaxis given anemia, GI bleed predisposition. 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 Discussed CODE status at length including difference between FULL code, DNR-CCA and DNR-CC status. Following discussions about the differences in these status, requested Full Code status. They both note having aggressive measures in their living will which note changes if no improvement in drastic presentation after 24-48 hours. Advanced Care Planning Face to Face Time: 16 minutes. Code Visit OBSV E&M: 06017 Initial observation care L3 Procedures: 23099 Advncd Care Plan 30 Min
--- NOTE | 2018-12-06 16:40 | ECHOD_ITS ---
Reason For Study: Syncope Procedure This was a 2D Doppler, Color Flow transthoracic echocardiogram. Echo done with patient sitting up due to severe left hip pain. Exam performed portable in patient room. Left Ventricle Normal size and thickness. The estimated ejection fraction is 65 %. No evidence for diastolic dysfunction. No regional wall motion abnormalities noted. Right Ventricle Normal RV size. Normal systolic function. Atria Normal left atrium. Normal right atrium. No doppler evidence for ASD. Mitral Valve There is no mitral valve stenosis. Trivial mitral valve insufficiency. Tricuspid Valve There is no tricuspid stenosis. Trivial tricuspid valve insufficiency. Normal pulmonary artery pressure. Aortic Valve There is no aortic stenosis. No aortic valve insufficiency. Pulmonic Valve There is no pulmonic valvular stenosis. No pulmonic valve insufficiency. Great Vessels Normal aortic root. Pericardium/Pleural No pericardial effusion. MMode/2D Measurements & Calculations LVIDd: 3.8 cm IVSd: 1.2 cm LA dimension: 3.1 cm LVIDs: 2.7 cm LVPWd: 0.97 cm RVDd: 3.5 cm FS: 29.0 % LAV(MOD-bp): 44.7 ml LA A4 area: 16.7 cm2 RA A4 area: 14.2 cm2 LAV(MOD-bp) Indexed: 28.8 ml/m2 LAV(MOD-sp2): 39.7 ml LAV(MOD-sp4): 41.7 ml Time Measurements MV dec time: 0.27 sec Doppler Measurements & Calculations MV E max frank: 66.9 cm/sec Lat Peak E' Frank: 11.7 cm/sec Med Peak E' Frank: 8.5 cm/sec MV A max frank: 85.2 cm/sec E/E' lat: 5.7 E/E' med: 7.9 MV E/A: 0.78 MV V2 max: 93.4 cm/sec MV P1/2t max frank: 76.1 cm/sec Ao V2 max: 143.6 cm/sec MV max P.5 mmHg MV P1/2t: 60.5 msec Ao max P.2 mmHg MV V2 mean: 62.0 cm/sec MV dec slope: 368.2 cm/sec2 MV mean P.7 mmHg MVA(P1/2t): 3.6 cm2 MV V2 VTI: 23.0 cm LV V1 max: 112.7 cm/sec MR max frank: 451.4 cm/sec PA V2 max: 99.2 cm/sec LV V1 max P.1 mmHg MR max P.5 mmHg TR max frank: 243.1 cm/sec TR max P.6 mmHg Interpretation Summary The estimated ejection fraction is 65 %. No evidence for diastolic dysfunction. Trivial mitral valve insufficiency. Trivial tricuspid valve insufficiency. Ordering Physician: Sharon Joseph Referring Physician: Gretta Burch M.D. Performed By: Delvis Read RCS
[2018-12-06] MEDS: 0.9% Normal Saline 1,000 ML 100 ML IV (17:02)
[2018-12-06 17:12] LABS: Magnesium 2.1 mg/dL (1.6-2.6)
--- NOTE | 2018-12-06 17:55 | ED.DCSUM_ITS ---
- ER Visit Summary Date of Service: 12/06/18 Chief Complaint: Syncope History of Present Illness: The patient is a [address] Burch on. Patient reports that she went to the chiropractor and stood up to get off the bed and was very lightheaded. She was nauseated. She denies any chest pain, palpitations, or abdominal pain. She does report that she was short of breath. She denies any diaphoresis. She was helped to a chair by her . She did not fall. However, she became unresponsive for approximately 10 to 20 seconds. Patient reports that she has had this once previously, but this was a long time ago. She reports that she has a history of frequent GI bleeds. However, she denies any hematemesis. She does report she has black stools, but this is chronic and unchanged. Her last bowel movement was yesterday. Physical Examination: Vitals: Stable. Afebrile. General: Well-nourished and well-developed. Head: Normocephalic atraumatic. Neck: Supple, no lymphadenopathy. No JVD. Nontender. Cardiovascular: Regular rate and rhythm. No murmurs. Respiratory: No respiratory distress. Clear to auscultation bilaterally. Abdominal: Soft, nontender, nondistended, normal bowel sounds. No guarding, rebound, or peritoneal signs. Back: Nontender. Extremities: Nontender, no edema. Skin: Normal color, no rash. Neurologic: Alert and oriented ?3. Cranial nerves II through XII are intact. Normal strength and sensation. Psych: Normal affect. Test Results: EKG is sinus at [address]pecific [address] changes. CBC shows an H&H of 7.9 24.4, segmented neutrophils 85, and sets of 8. Her hemoglobin was 8.5 yesterday. Chem-7 shows a potassium 3.3, chloride 111, glucose 114, calcium 8.3. Of note her BUN is normal. Troponin is negative. Emergency Department Course and Treatment: Patient was given a liter of normal saline. She was given Zofran IV. She is resting comfortably. Treatment Plan: Patient's hemoglobin has decreased 0.6 yesterday. This was prior to the IV fluids here. She was typed and screened. She was discussed with Dr. Joseph. She will be admitted to the hospital for further evaluation and treatment. Disposition: Admitted in improved condition. Impression: 1. Syncope. 2. Anemia. 3. History of gastric antral vascular ectasia. This note was generated with [employer] dictation software. It may contain incorrect words, spelling, and punctuation that were not noted in review of the chart prior to signing ED Disposition - Plan for ED Patient: Disposition: Acute Care Hospital [facility]
[2018-12-06] MEDS: traMADol 50 MG Tablet PO (18:37)
[2018-12-06] MEDS: Acetaminophen 325 MG Tablet 650 MG PO (19:42)
[2018-12-06] MEDS: Metoprolol Tartrate 50 MG Tablet PO (21:56)
[2018-12-06] MEDS: Pantoprazole Sodium 40 MG Tablet PO (21:56)
[2018-12-07] VITALS (16 sets, daily range): BP systolic 99–128; BP diastolic 43–99; PULSE 63–83; RESP 16–18; TEMP 36.5–37; O2SAT 96–100
[2018-12-07] MEDS: Morphine 2 MG/ML Syringe IV (01:04)
[2018-12-07] MEDS: 0.9% NaCl Peripheral Flush Adult/Peds IV ×2 (01:04→13:38)
[2018-12-07] MEDS: 0.9% Normal Saline 1,000 ML 100 ML IV (03:10)
[2018-12-07 06:22] LABS: Absolute Lymphocyte Count 0.59 X10^3/uL (0.83-4.51); Basophil# 0.02 X10^3/uL; Basophil% 0.5 % (0-1); Eosinophil# 0.13 X10^3/uL; Eosinophils% 3.1 % (0-5); Hematocrit 20.7 % (37-47); Hemoglobin 6.5 g/dL (12.0-15.0); Lymphocyte # 0.59 X10^3/ul (4.0); Lymphocyte % 14.1 % (19-41); Mean Corp Hgb Conc 31.4 g/dL (32-36); Mean Corpuscular Hgb 32.8 pg (27.0-32.0); Mean Corpuscular Volume 104.5 fL (81-99); Mean Platelet Vol. 9.5 fl (6.2-12.0); Monocyte# 0.37 X10^3/uL; Monocyte% 8.9 % (0-10); NRBC Flagged by Analyzer 0 % (0-5); Neutrophil # 3.03 X10^3/uL (2.7-7.7); Neutrophil % 72.7 % (47-70); POSITIVE DIFFERENTIAL YES; Platelet Count 188 K/mm3 (150-450); RBC Distribution Width CV 15.6 % (11.6-14.6); RBC Distribution Width SD 57.4 fl (35.1-43.9); Red Blood Count 1.98 M/mm3 (4.2-5.4); White Blood Count 4.2 K/mm3 (4.4-11.0)
[2018-12-07 06:30] LABS: Differential Indicated SCAN CRITERIA MET
[2018-12-07] MEDS: Levothyroxine 25 MCG TABLET PO (06:30)
[2018-12-07 06:46] LABS: Anion Gap 6 (5-15); BUN 10 mg/dL (7-18); BUN/Creat Ratio 17.8 RATIO (10-20); Calcium,Total 7.6 mg/dL (8.5-10.1); Chloride 117 mmol/L (98-107); Creatinine, Serum 0.56 mg/dL (0.55-1.02); EST Glomerular Filtration Rate 111 mL/min (>60); Est Glom Filt Rate - Afr Amer 134 mL/min (>60); Estimated Creatinine Clearance 34.38 ml/min; Glucose 105 mg/dL (74-106); Potassium 3.7 mmol/L (3.5-5.1); Sodium Level 147 mmol/L (136-145)
[2018-12-07] MEDS: Acetaminophen 325 MG Tablet 650 MG PO ×3 (07:01→20:45)
--- NOTE | 2018-12-07 08:02 | NURSING ---
Pt assisted to restroom with stand-by assistance and walker-pt denies any dizziness, SOB or discomfort during ambulation. Voids with no difficulty, assisted back to bed. Bed alarm on-call light in reach.
--- NOTE | 2018-12-07 09:50 | PCM.PROGNOTE ---
<Meseret Tolbert - Last Filed: 12/07/18 10:01> Patient Problems: Active and Suspected Problems Syncope and collapse (Acute) Hip pain (Acute) Subjective: Patient seen and examined. Reports nausea, denies emesis. Reports she is not able to eat or drink without becoming nauseated. Reports she has not had a bowel movement in 2 days. Denies abdominal pain. - Physical Exam General: Alert, Oriented x3, Cooperative HEENT: Atraumatic, PERRLA, EOMI, Normocephalic Oral: Dry Mucosa Neck: Supple, No JVD, Negative Carotid Bruits Lungs: Clear to auscultation, Diminished Cardiovascular: Regular rate, Regular Rhythm, Normal S1, Normal S2, No murmurs Abdomen: Bowel Sounds Present, Soft, Non Tender, Non-Distended Extremities: No clubbing, No cyanosis, No edema, Capillary Refill Less than 3 Seconds Skin: No rashes, No breakdown Musculoskeletal: No Tenderness to Palpation of Joints or Extremities Neurological: Cranial nerves II-XII grossly intact, Neuro grossly intact Psych/Mental Status: Normal Affect, Appropriate Vital Signs Temp Pulse Resp BP Pulse Ox 98.6 F 78 18 111/54 L 99 12/07/18 06:53 12/07/18 07:30 12/07/18 06:53 12/07/18 06:54 12/07/18 06:53 Oxygen Delivery Method Room Air Weight: 130 lb 1.6 oz Body Mass Index (BMI) 25.4 Orthostatic Vital Signs Start: 12/06/18 16:55 Freq: q24h Status: Active Protocol: Activity Type Activity Date Activity User E-Sign Co-Sign Detail Recorded Client Recorded Date Recorded By Document 12/07/18 06:54 CAD [id number] 12/07/18 06:58 CAD 12/07/18 06:54 Orthostatic Vitals Standing -Blood Pressure (90/60-120/80) 123/58 H -Extremity Use Left Arm -Pulse Rate (60-100) 78 Sitting -Blood Pressure (90/60-120/80) 116/60 -Extremity Use Left Arm -Pulse Rate (60-100) 75 Lying -Blood Pressure (90/60-120/80) 111/54 L -Extremity Use Left Arm -Pulse Rate (60-100) 72 Intake and Output for Last 24 Hours 12/05/18 12/06/18 12/07/18 23:59 23:59 23:59 Intake Total 1435.00 / 1435.00 545 / 545 Balance 1435.00 / 1435.00 545 / 545 Laboratory Tests Past 24 Hrs 12/06/18 12/06/18 12/06/18 13:00 13:00 13:00 WBC 5.4 RBC 2.32 L Hgb 7.9 L Hct 24.4 L MCV 105.2 H MCH 34.1 H MCHC 32.4 RDW Std Deviation 57.2 H RDW Coeff of Jeferson 15.5 H Plt Count 213 MPV 9.8 Immature Gran % (Auto) 0.600 Neut % (Auto) 85.0 H Lymph % (Auto) 7.7 L [place] % (Auto) 5.0 Eos % (Auto) 1.1 Baso % (Auto) 0.6 Absolute Neuts (auto) 4.6 Absolute Lymphs (auto) 0.42 L Nucleated RBC % 0.4 Diff Path Review Polychromasia 1+ Macrocytosis 1+ Sodium 141 Potassium 3.3 L Chloride 111 H Carbon Dioxide 23.0 Anion Gap 7 BUN 10 Creatinine 0.82 Estim Creat Clear Calc 41.92 Est GFR (MDRD) Af Amer 87 Est GFR (MDRD) Non-Af 72 BUN/Creatinine Ratio 12.2 Glucose 114 H Calcium 8.3 L Magnesium 2.1 Troponin I < 0.015 Crossmatch 12/06/18 12/06/18 12/07/18 17:48 21:20 06:08 WBC 4.2 L RBC 1.98 L Hgb 6.5 L Hct 20.7 L MCV 104.5 H MCH 32.8 H MCHC 31.4 L RDW Std Deviation 57.4 H RDW Coeff of Jeferson 15.6 H Plt Count 188 MPV 9.5 Immature Gran % (Auto) 0.700 Neut % (Auto) 72.7 H Lymph % (Auto) 14.1 L [place] % (Auto) 8.9 Eos % (Auto) 3.1 Baso % (Auto) 0.5 Absolute Neuts (auto) 3.0 Absolute Lymphs (auto) 0.59 L Nucleated RBC % 0 Diff Path Review May foll Polychromasia Macrocytosis Sodium Potassium Chloride Carbon Dioxide Anion Gap BUN Creatinine Estim Creat Clear Calc Est GFR (MDRD) Af Amer Est GFR (MDRD) Non-Af BUN/Creatinine Ratio Glucose Calcium Magnesium Troponin I < 0.015 < 0.015 Crossmatch 12/07/18 12/07/18 06:08 09:22 WBC RBC Hgb Hct MCV MCH MCHC RDW Std Deviation RDW Coeff of Jeferson Plt Count MPV Immature Gran % (Auto) Neut % (Auto) Lymph % (Auto) [place] % (Auto) Eos % (Auto) Baso % (Auto) Absolute Neuts (auto) Absolute Lymphs (auto) Nucleated RBC % Diff Path Review Polychromasia Macrocytosis Sodium 147 H Potassium 3.7 Chloride 117 H Carbon Dioxide 24.0 Anion Gap 6 BUN 10 Creatinine 0.56 Estim Creat Clear Calc 34.38 Est GFR (MDRD) Af Amer 134 Est GFR (MDRD) Non-Af 111 BUN/Creatinine Ratio 17.8 Glucose 105 Calcium 7.6 L Magnesium Troponin I Crossmatch See Detail Medical Necessity - Tobacco Use Smoking Status: Former smoker - Quit current tobacco usage greater than 40 to 45 years prior, prior to this 1 pack/day since she was a teenager. Tobacco Use: Non-smoker Assessment/Plan All Active Problems Syncope and collapse (Acute) Hip pain (Acute) Symptomatic anemia (Acute) 1. Syncope-troponin negative. Orthostatic vitals negative. Echocardiogram completed, report pending. EKG without ST-T changes. PT/OT. 2. 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 Patient has frequent routine PRBC infusions as outpatient. Continue iron supplementation. Continue PPI. 1 unit PRBC ordered for hemoglobin 6.5. Repeat H&H following blood transfusion. 3. Left hip pain- PRN tramadol. PT/OT. Recent x-ray showed no abnormality. 4. Hypertension-stable, continue home losartan, hydrochlorothiazide and metoprolol regimen. 5. Hyperlipidemia-continue statin regimen. 6. History of CVA-continue statin regimen. Not on aspirin secondary to #2. 7. Hypothyroidism-continue home Synthroid regimen. 8. GERD-continue PPI. DVT prophylaxis- SCDs. This patient was seen by LUCERO Paris under the supervision of Dr. Bell. <Alfredo Bell - Last Filed: 12/07/18 10:58> - Physical Exam Vital Signs Temp Pulse Resp BP Pulse Ox 98.4 F 71 18 126/46 H 100 12/07/18 10:04 12/07/18 10:04 12/07/18 10:04 12/07/18 10:04 12/07/18 10:04 Oxygen Delivery Method Room Air Weight: 59.012 kg Body Mass Index (BMI) 25.4 Orthostatic Vital Signs Start: 12/06/18 16:55 Freq: q24h Status: Active Protocol: Activity Type Activity Date Activity User E-Sign Co-Sign Detail Recorded Client Recorded Date Recorded By Document 12/07/18 06:54 CAD [id number] 12/07/18 06:58 CAD 12/07/18 06:54 Orthostatic Vitals Standing -Blood Pressure (90/60-120/80) 123/58 H -Extremity Use Left Arm -Pulse Rate (60-100) 78 Sitting -Blood Pressure (90/60-120/80) 116/60 -Extremity Use Left Arm -Pulse Rate (60-100) 75 Lying -Blood Pressure (90/60-120/80) 111/54 L -Extremity Use Left Arm -Pulse Rate (60-100) 72 Intake and Output for Last 24 Hours 12/05/18 12/06/18 12/07/18 23:59 23:59 23:59 Intake Total 1435.00 / 1435.00 545 / 545 Balance 1435.00 / 1435.00 545 / 545 Laboratory Tests Past 24 Hrs 12/06/18 12/06/18 12/06/18 13:00 13:00 13:00 WBC 5.4 RBC 2.32 L Hgb 7.9 L Hct 24.4 L MCV 105.2 H MCH 34.1 H MCHC 32.4 RDW Std Deviation 57.2 H RDW Coeff of Jeferson 15.5 H Plt Count 213 MPV 9.8 Immature Gran % (Auto) 0.600 Neut % (Auto) 85.0 H Lymph % (Auto) 7.7 L [place] % (Auto) 5.0 Eos % (Auto) 1.1 Baso % (Auto) 0.6 Absolute Neuts (auto) 4.6 Absolute Lymphs (auto) 0.42 L Nucleated RBC % 0.[address] Review Polychromasia 1+ Macrocytosis 1+ Sodium 141 Potassium 3.3 L Chloride 111 H Carbon Dioxide 23.0 Anion Gap 7 BUN 10 Creatinine 0.82 Estim Creat Clear Calc 41.92 Est GFR (MDRD) Af Amer 87 Est GFR (MDRD) Non-Af 72 BUN/Creatinine Ratio 12.2 Glucose 114 H Calcium 8.3 L Magnesium 2.1 Troponin I < 0.015 Blood Type Antibody Screen Crossmatch 12/06/18 12/06/18 12/07/18 17:48 21:20 06:08 WBC 4.2 L RBC 1.98 L Hgb 6.5 L Hct 20.7 L MCV 104.5 H MCH 32.8 H MCHC 31.4 L RDW Std Deviation 57.4 H RDW Coeff of Jeferson 15.6 H Plt Count 188 MPV 9.5 Immature Gran % (Auto) 0.700 Neut % (Auto) 72.7 H Lymph % (Auto) 14.1 L [place] % (Auto) 8.9 Eos % (Auto) 3.1 Baso % (Auto) 0.5 Absolute Neuts (auto) 3.0 Absolute Lymphs (auto) 0.59 L Nucleated RBC % 0 Diff Path Review May foll Polychromasia Macrocytosis Sodium Potassium Chloride Carbon Dioxide Anion Gap BUN Creatinine Estim Creat Clear Calc Est GFR (MDRD) Af Amer Est GFR (MDRD) Non-Af BUN/Creatinine Ratio Glucose Calcium Magnesium Troponin I < 0.015 < 0.015 Blood Type Antibody Screen Crossmatch 12/07/18 12/07/18 06:08 09:22 WBC RBC Hgb Hct MCV MCH MCHC RDW Std Deviation RDW Coeff of Jeferson Plt Count MPV Immature Gran % (Auto) Neut % (Auto) Lymph % (Auto) [place] % (Auto) Eos % (Auto) Baso % (Auto) Absolute Neuts (auto) Absolute Lymphs (auto) Nucleated RBC % Diff Path Review Polychromasia Macrocytosis Sodium 147 H Potassium 3.7 Chloride 117 H Carbon Dioxide 24.0 Anion Gap 6 BUN 10 Creatinine 0.56 Estim Creat Clear Calc 34.38 Est GFR (MDRD) Af Amer 134 Est GFR (MDRD) Non-Af 111 BUN/Creatinine Ratio 17.8 Glucose 105 Calcium 7.6 L Magnesium Troponin I Blood Type Pending Antibody Screen Pending Crossmatch See Detail Assessment/Plan This patient was seen in conjunction with Meseret Tomasz, [employer] . I have independently interviewed and examined the patient and reviewed pertinent historical, laboratory, and other data. Please refer to LUCERO Paris note for details of this patient's presentation, findings, and recommendations. I have reviewed LUCERO Paris note and concur with documented findings. In brief, patient is a 78-year-old with history of GAVE admitted following a syncopal episode. Patient was found to have symptomatic anemia admitted to monitored bed. An order was given for patient to be transfused 1 unit PRBC. Physical Examination: GENERAL: cooperative HEENT: Atraumatic; EYES; Anicteric, NECK; supple, normal thyroid, . RESPIRATORY: Diminished to auscultation, CARDIOVASCULAR: Regular S1 S2, GI: soft, non-tender, normoactive bowel sounds, : No Renal angle tenderness; NEURO: Awake; no lateralizing signs. SKIN: No Rash PSYCH; Normal affect Assessment: 1. Syncope 2. GAVE 3. Anemia secondary to chronic blood loss from #2 5. Essential hypertension 5. Dyslipidemia 6. Hypothyroidism 7. GERD 8. History of previous CVA 9. Generalized osteoarthritis with significant left hip pain 10. Anorexia Recommendations: 1. I have discussed the results of my overview and impressions with the patient 2. Options for management were reviewed Code Visit OBSV E&M: 58911 Subsequent observation care L3
[2018-12-07] MEDS: Losartan Potassium 100 MG Tablet PO (09:54)
[2018-12-07] MEDS: Metoprolol Tartrate 50 MG Tablet PO ×2 (09:55→21:36)
[2018-12-07] MEDS: hydroCHLOROthiazide 12.5mg 12.5 MG PO (09:55)
[2018-12-07] MEDS: Pantoprazole Sodium 40 MG Tablet PO ×2 (09:56→21:36)
[2018-12-07] MEDS: Ferrous Sulfate 325 MG Tablet PO ×2 (12:17→16:44)
[2018-12-07] MEDS: DiphenhydrAMINE 25 MG Capsule PO (13:38)
[2018-12-07] MEDS: Hydrocortisone Sod Succinate 100 MG/2 ML Vial IV (13:38)
[2018-12-07] MEDS: Dextrose 5%/0.9% NaCl 1,000 ML 100 ML IV (16:43)
[2018-12-07 17:41] LABS: Hematocrit 27.4 % (37-47); Hemoglobin 8.9 g/dL (12.0-15.0)
[2018-12-08] MEDS: Dextrose 5%/0.9% NaCl 1,000 ML 100 ML IV (02:43)
[2018-12-08 02:52] VITALS: BP 110/57; PULSE 71; PULSE 72; RESP 14; TEMP 36.6; O2SAT 100
[2018-12-08 06:25] LABS: Hematocrit 23.6 % (37-47); Hemoglobin 7.7 g/dL (12.0-15.0); Mean Corp Hgb Conc 32.6 g/dL (32-36); Mean Corpuscular Hgb 32.8 pg (27.0-32.0); Mean Corpuscular Volume 100.4 fL (81-99); Mean Platelet Vol. 9.5 fl (6.2-12.0); Platelet Count 182 K/mm3 (150-450); RBC Distribution Width CV 18.1 % (11.6-14.6); RBC Distribution Width SD 62.7 fl (35.1-43.9); Red Blood Count 2.35 M/mm3 (4.2-5.4); White Blood Count 5.6 K/mm3 (4.4-11.0)
[2018-12-08 06:44] LABS: Anion Gap 6 (5-15); BUN 12 mg/dL (7-18); BUN/Creat Ratio 20.7 RATIO (10-20); Calcium,Total 7.4 mg/dL (8.5-10.1); Chloride 119 mmol/L (98-107); Creatinine, Serum 0.58 mg/dL (0.55-1.02); EST Glomerular Filtration Rate 107 mL/min (>60); Est Glom Filt Rate - Afr Amer 130 mL/min (>60); Estimated Creatinine Clearance 34.38 ml/min; Glucose 107 mg/dL (74-106); Potassium 2.8 mmol/L (3.5-5.1); Sodium Level 148 mmol/L (136-145)
[2018-12-08] MEDS: Acetaminophen 325 MG Tablet 650 MG PO (06:46)
[2018-12-08] MEDS: Levothyroxine 25 MCG TABLET PO (06:46)
[2018-12-08 07:06] VITALS: PULSE 64
[2018-12-08 08:19] VITALS: O2SAT 99
[2018-12-08 09:18] VITALS: BP 126/47; PULSE 74; RESP 16; TEMP 36.5; O2SAT 100
[2018-12-08 09:21] VITALS: PULSE 74
[2018-12-08] MEDS: Metoprolol Tartrate 50 MG Tablet PO (09:21)
[2018-12-08] MEDS: hydroCHLOROthiazide 12.5mg 12.5 MG PO (09:21)
[2018-12-08] MEDS: Losartan Potassium 100 MG Tablet PO (09:21)
[2018-12-08] MEDS: Pantoprazole Sodium 40 MG Tablet PO (09:21)
--- NOTE | 2018-12-08 09:35 | PCM.DC.SUM ---
<Meseret Tolbert - Last Filed: 12/08/18 09:43> Discharge Date and Diagnosis Date of Admission: 12/06/18 Date of Discharge: 12/08/18 - Primary Discharge Diagnosis Active and Suspected Problems 1. Syncope 2. 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 Left hip pain, osteoarthritis 4. Hypertension 5. Hyperlipidemia 6. History of CVA 7. Hypothyroidism 8. GERD 9. Hypokalemia - Secondary Discharge Diagnosis Chronic Problems HLD (hyperlipidemia) (Chronic) Watermelon stomach (Chronic) Chronic anemia (Chronic) Hypothyroidism (Chronic) History of CVA (cerebrovascular accident) (Chronic) GERD (gastroesophageal reflux disease) (Chronic) Cerebrovascular disease (Chronic) Remote stroke no residual deficit Rheumatic fever without heart involvement (Chronic) HTN (hypertension) (Chronic) Hospital Course and Treatment Operations: None Procedures: 2-D Echocardiogram Summary of Care Provided: The patient is a 78 year old F admitted 12/06/2018 following syncopal event. 1. Syncope-troponin negative. Orthostatic vitals negative. Echocardiogram demonstrated an EF of 65%. EKG without ST-T changes. 2. 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 Camacho. Patient has frequent routine PRBC infusions as outpatient. Continue iron supplementation. Continue PPI. Status post 1 unit PRBC ordered for hemoglobin 6.5. Hemoglobin increased to 8.9 following PRBC transfusion. However, this morning hemoglobin 7.7 and patient reports multiple black episodes of diarrhea. Transfer arranged to [facility] for further GI evaluation given patient had prior plans for ablation 12/25/2018. Prior APC at [facility] 12/17/2017. Stable at time of transfer. 3. Left hip pain- PRN pain regimen. Tylenol effective. Recent x-ray showed no abnormality. 4. Hypertension-stable, continue home losartan, hydrochlorothiazide and metoprolol regimen. 5. Hyperlipidemia-continue statin regimen. 6. History of CVA-continue statin regimen. Not on aspirin secondary to #2. 7. Hypothyroidism-continue home Synthroid regimen. 8. GERD-continue PPI. 9. Hypokalemia-replace per protocol, trend BMP. General: Alert, Oriented x3, Cooperative HEENT: Atraumatic, PERRLA, EOMI, Normocephalic Oral: Dry Mucosa Neck: Supple, No JVD, Negative Carotid Bruits Lungs: Clear to auscultation, Diminished Cardiovascular: Regular rate, Regular Rhythm, Normal S1, Normal S2, No murmurs Abdomen: Bowel Sounds Present, Soft, Non Tender, Non-Distended Extremities: No clubbing, No cyanosis, No edema, Capillary Refill Less than 3 Seconds Skin: No rashes, No breakdown Musculoskeletal: No Tenderness to Palpation of Joints or Extremities Neurological: Cranial nerves II-XII grossly intact, Neuro grossly intact Psych/Mental Status: Normal Affect, Appropriate Patient seen and examined prior to discharge. Physical assessment as noted above. Patient is stable for discharge with follow up recommendations as noted above. This patient was seen by LUCERO Paris under the supervision of Dr. Bell. - Physical Exam Vital Signs Temp Pulse Resp BP Pulse Ox 97.7 F L 74 16 126/47 H 100 12/08/18 09:18 12/08/18 09:21 12/08/18 09:18 12/08/18 09:18 12/08/18 09:18 Oxygen Delivery Method Room Air Weight: 130 lb 1.164 oz Body Mass Index (BMI) 25.4 Intake and Output for Last 24 Hours 12/06/18 12/07/18 12/08/18 23:59 23:59 23:59 Intake Total 1435.00 / 1435.00 2690 / 2690 1310 / 1310 Balance 1435.00 / 1435.00 2690 / 2690 1310 / 1310 Laboratory Tests Past 24 Hrs 12/07/18 12/07/18 12/07/18 09:22 09:22 09:22 WBC RBC Hgb Hct MCV MCH MCHC RDW Std Deviation RDW Coeff of Jeferson Plt Count MPV Sodium Potassium Chloride Carbon Dioxide Anion Gap BUN Creatinine Estim Creat Clear Calc Est GFR (MDRD) Af Amer Est GFR (MDRD) Non-Af BUN/Creatinine Ratio Glucose Calcium Blood Type O POSITIVE Antibody Screen TNP NEGATIVE Crossmatch See Detail See Detail 12/07/18 12/08/18 12/08/18 17:30 06:00 06:00 WBC 5.6 RBC 2.35 L Hgb 8.9 L 7.7 L Hct 27.4 L 23.6 L MCV 100.4 H MCH 32.8 H MCHC 32.6 RDW Std Deviation 62.7 H RDW Coeff of Jeferson 18.1 H Plt Count 182 MPV 9.5 Sodium 148 H Potassium 2.8 L Chloride 119 H Carbon Dioxide 23.0 Anion Gap 6 BUN 12 Creatinine 0.58 Estim Creat Clear Calc 34.38 Est GFR (MDRD) Af Amer 130 Est GFR (MDRD) Non-Af 107 BUN/Creatinine Ratio 20.7 H Glucose 107 H Calcium 7.4 L Blood Type Antibody Screen Crossmatch Home Medications: Medications to take at Discharge Levothyroxine [Synthroid] 25 mcg PO DAILY 12/05/14 Losartan/Hydrochlorothiazide [Hyzaar 100-12.5 Tablet] 1 tab PO DAILY 12/05/14 Metoprolol Tartrate [Lopressor (beta monico)] 50 mg PO BID 12/05/14 Potassium Chloride [K-Dur] 10 meq PO BID 12/05/14 Cyanocobalamin [Vitamin B12] 500 mcg PO DAILY@0800 01/27/15 Ascorbic Acid [Vitamin C] 500 mg PO TIDCM #90 tablet 03/02/16 Ergocalciferol [Vitamin D] 50,000 unit PO WE 05/10/16 Omeprazole [Prilosec] 40 mg PO BID 11/09/16 Rosuvastatin Calcium [Crestor] 10 mg PO DAILY 11/09/16 Ferrous Sulfate [Iron] 325 mg PO BID 12/05/18 Multivit-Min/Iron/Folic/Lutein [Centrum Silver Women Tablet] 1 ea PO DAILY 12/06/18 Primary Care Physician: Gretta Burch DO [Primary Care Provider] - Disposition: Acute care Hospital Minutes spent on discharge:: 35 Patient Condition:: Stable Medical Necessity - Tobacco Use Smoking Status: Former smoker - Quit current tobacco usage greater than 40 to 45 years prior, prior to this 1 pack/day since she was a teenager. Tobacco Use: Non-smoker Meaningful Use Info Meaningful Use Diagnoses (Choose all that apply): None applicable <Alfredo Bell - Last Filed: 12/08/18 10:45> Discharge Date and Diagnosis - Secondary Discharge Diagnosis Chronic Problems HLD (hyperlipidemia) (Chronic) Watermelon stomach (Chronic) Chronic anemia (Chronic) Hypothyroidism (Chronic) History of CVA (cerebrovascular accident) (Chronic) GERD (gastroesophageal reflux disease) (Chronic) Cerebrovascular disease (Chronic) Remote stroke no residual deficit Rheumatic fever without heart involvement (Chronic) HTN (hypertension) (Chronic) Hospital Course and Treatment Summary of Care Provided: This patient was seen in conjunction with LUCERO Paris . I have independently interviewed and examined the patient and reviewed pertinent historical, laboratory, and other data. Please refer to LUCERO Paris note for details of this patient's presentation, findings, and recommendations. I have reviewed LUCERO Paris note and concur with documented findings. In brief, patient is a 78-year-old with history of GAVE admitted following a syncopal episode. Patient was found to have symptomatic anemia admitted to monitored bed. An order was given for patient to be transfused 1 unit PRBC. 12/08/2018: Patient hemoglobin continued to drop despite transfusion. She was also noted to have black tarry stools. Case was discussed with patient and the decision was made to have patient transferred to [facility] where she has been managed for her GAVE. Assessment: 1. Syncope 2. GAVE 3. Anemia secondary to chronic blood loss from #2 5. Essential hypertension 5. Dyslipidemia 6. Hypothyroidism 7. GERD 8. History of previous CVA 9. Generalized osteoarthritis with significant left hip pain 10. Anorexia Hospital course: As documented above - Physical Exam Vital Signs Temp Pulse Resp BP Pulse Ox 97.7 F L 74 16 126/47 H 100 12/08/18 09:18 12/08/18 09:21 12/08/18 09:18 12/08/18 09:18 12/08/18 09:18 Oxygen Delivery Method Room Air Weight: 59 kg Body Mass Index (BMI) 25.4 Intake and Output for Last 24 Hours 12/06/18 12/07/18 12/08/18 23:59 23:59 23:59 Intake Total 1435.00 / 1435.00 2690 / 2690 1768.33 / 1768.33 Balance 1435.00 / 1435.00 2690 / 2690 1768.33 / 1768.33 Laboratory Tests Past 24 Hrs 12/07/18 12/07/18 12/07/18 09:22 09:22 09:22 WBC RBC Hgb Hct MCV MCH MCHC RDW Std Deviation RDW Coeff of Jeferson Plt Count MPV Sodium Potassium Chloride Carbon Dioxide Anion Gap BUN Creatinine Estim Creat Clear Calc Est GFR (MDRD) Af Amer Est GFR (MDRD) Non-Af BUN/Creatinine Ratio Glucose Calcium Blood Type O POSITIVE Antibody Screen TNP NEGATIVE Crossmatch See Detail See Detail 12/07/18 12/08/18 12/08/18 17:30 06:00 06:00 WBC 5.6 RBC 2.35 L Hgb 8.9 L 7.7 L Hct 27.4 L 23.6 L MCV 100.4 H MCH 32.8 H MCHC 32.6 RDW Std Deviation 62.7 H RDW Coeff of Jeferson 18.1 H Plt Count 182 MPV 9.5 Sodium 148 H Potassium 2.8 L Chloride 119 H Carbon Dioxide 23.0 Anion Gap 6 BUN 12 Creatinine 0.58 Estim Creat Clear Calc 34.38 Est GFR (MDRD) Af Amer 130 Est GFR (MDRD) Non-Af 107 BUN/Creatinine Ratio 20.7 H Glucose 107 H Calcium 7.4 L Blood Type Antibody Screen Crossmatch Code Visit Inpatient E&M: [id number] Disch Hosp
--- NOTE | 2018-12-08 09:43 | NURSING ---
ATTEMPTED TO CALL THE [facility] NUMBER GIVEN TO US BY THE TRANSFER LINE TO GIVE REPORT ON PT TWO TIMES. BOTH WITHOUT ANSWER. RN THEN CALLED THE [facility] MAIN LINE, WAS TRANSFERRED TO THE CORRECT FLOOR AND REMAINED ON HOLD FOR 9 MINUTES WITH NO ANSWER. WILL ATTEMPT TO CALL BACK AGAIN.
--- NOTE | 2018-12-08 09:57 | NURSING ---
ATTEMPTED TO CALL [facility] AGAIN WITH THE PHONE NUMBER WE GOT FROM THE TRANSFER PERSON. NO ANSWER. WILL ATTEMPT AGAIN.
--- NOTE | 2018-12-08 10:19 | NURSING ---
CALLED REPORT TO MERARI AT [facility]. NO QUESTIONS.
[2018-12-09 12:24] LABS: Pathologist Review Reviewed
== END 2018-12-08 11:12 | disposition short-term general hospital (02) ==
LOC: ED 12:02 → PCU 15:09
PROVIDERS: Nurse Practitioner Family; Admitting Provider Family Medicine; Emergency Provider Emergency Medicine; Family Provider Internal Medicine; PCP Internal Medicine; Referring Provider Family Medicine; Visit Provider Internal Medicine
DX: R55 Syncope and collapse (principal); K31.811 Angiodysplasia of stomach and duodenum with bleeding; M16.11 Unilateral primary osteoarthritis, right hip; I10 Essential (primary) hypertension; E78.5 Hyperlipidemia, unspecified; E03.9 Hypothyroidism, unspecified; K21.9 Gastro-esophageal reflux disease without esophagitis; D50.0 Iron deficiency anemia secondary to blood loss (chronic); E87.6 Hypokalemia; Z79.899 Other long term (current) drug therapy; Z86.73 Personal history of transient ischemic attack (TIA), and cerebral infarction without residual deficits; Z87.891 Personal history of nicotine dependence
CPT/HCPCS: 36415; 36430; 80048; 83735; 84484; 85014; 85018; 85025; 85027; 86850; 86900; 86901; 86920; 86922; 93005; 93306; 96361; 96374; 96375; 97161; 97166; 97530; 97802; 99218; 99285; J7030; J7040; P9040; Q9957; A4216; G0378; J2405

== ENCOUNTER 2018-12-24 07:13 | Emergency (ER) | payer MEDICARE, OTHER, SELFPAY ==
[2018-12-06 16:11] VITALS: BMI 25.4
[2018-12-24 07:14] VITALS: BP 139/75; PULSE 69; RESP 20; TEMP 36.4; O2SAT 100; BMI 24.7
--- NOTE | 2018-12-24 07:31 | ED.DCSUM_ITS ---
History of Present Illness Chief Complaint: Lower Extremity Injury Informant: Patient Onset: Weeks - 2 Context: Gradual Onset Timing: Continuous Current Severity: Moderate Maximum Severity: Severe Narrative: Patient presents with left-sided hip pain for about 2 to 3 weeks. She was seen here had a CT and x-ray which were unremarkable but her pain continues. She has no groin pain most of the pain is lateral and posterior. No fever chills cough or congestion she is able to ambulate however the pain is intense mostly at night when she is trying to sleep. She has no abdominal pain no back pain just buttock pain. Past Medical History - Allergies and Home Meds Allergies/Adverse Reactions: Allergies erythromycin base [From Staticin] Adverse Reaction (Verified 12/24/18 07:14) muscle pain ok to take crestor ethyl alcohol [From Staticin] Adverse Reaction (Verified 12/24/18 07:14) muscle pain ok to take crestor niacin Adverse Reaction (Verified 12/24/18 07:14) REDNESS/FLUSHING TELEMETRY PADS Allergy (Uncoded 12/24/18 07:14) Rash Primary Care Physician: Gretta Burch DO [Primary Care Provider] - Prior records reviewed: Yes Past Medical History: - - Reviewed including recent hospitalization for upper GI bleed. Surgical History: tonsillectomy Lives: Spouse/ Significant Other Smoking Status: Former smoker Alcohol: None - Family History Sibling Family History: Reports: Dementia Paternal Family History: Reports: Heart Disease Maternal Family History: Reports: Diabetes, Heart Disease, No pertinent history Review of Systems All systems negative except as indicated General: Denies: Chills, Fever Cardiovascular: Denies: Chest pain Respiratory: Denies: Dyspnea Gastrointestinal: Denies: Abdominal pain, Nausea Genitourinary: Denies: Dysuria Musculoskeletal: Reports: Arthralgias, Extremity Pain Skin: Denies: Rash, Abrasions, Wounds Neurological: Denies: Weakness, Parasthesia Hematologic: Denies: Easy bruising Physical Exam Vital Signs/Narrative: Vital Signs Temp Pulse Resp BP Pulse Ox 12/24/18 07:14 97.6 F L 69 20 H 139/75 H 100 Inital Vital Signs reviewed: Yes General: Well nourished, Well developed ENT: Moist mucous membranes Cardiovascular: Regular rate, Regular rhythm Respiratory: No distress, CTA bilaterally Abdomen: Soft, Nontender Back: Nontender, Normal Inspection. Negative for: CVA tenderness Extremities: - - There is tenderness over the greater trochanter and posterior SI joint region, she has equal tenderness at both spots. There is no tenderness to her logrolling or flexion and extension of the hip. She has a negative straight leg test. Skin: Normal color, No rash Neurological: Alert, Normal Strength, Normal Sensation Psychological: Normal affect Diagnostic/Tx/Re-eval - Medical Decision Making Patient has an unremarkable exam, she likely has a soft tissue injury although I am unsure if this is a nerve compression of the lateral femoral cutaneous nerve, a SI joint inflammation or trochanteric bursitis. Regardless she will be followed up with orthopedics since she has not been referred. I believe this is reasonable. In the meantime I will treat her with analgesia. ED Disposition - Plan for ED Patient: Disposition: Home or Assisted Living Diagnosis: Hip pain Instructions: Sacroiliitis, What Is Bursitis? Prescriptions: Hydrocodone Bitart/Apap 5-325 [[place] 5MG-325MG] 1 tab PO Q4H PRN PRN 3 Days #12 tab PRN Reason: Pain Prescription Printed Referrals: Gretta Burch DO [Primary Care Provider] - 3-5 Days
[2018-12-24] MEDS: HYDROcodone Bitartrate/Apap 5/325 Tablet PO (07:43)
[2018-12-24] MEDS: Ketorolac 15 MG/ML Vial IM (07:55)
== END 2018-12-24 08:38 | disposition home or self-care (01) ==
PROVIDERS: Emergency Provider Emergency Medicine; Family Provider Internal Medicine; PCP Internal Medicine
DX: M25.552 Pain in left hip (principal); Z87.891 Personal history of nicotine dependence
CPT/HCPCS: 99283

== ENCOUNTER 2019-09-24 02:38 | Inpatient (IN) | payer MEDICARE, OTHER, SELFPAY ==
[2019-09-24] VITALS (15 sets, daily range): BP systolic 105–155; BP diastolic 50–84; PULSE 66–78; RESP 15–25; TEMP 36.3–37.1; O2SAT 100; BMI 24.5; BMI 24.1; BMI 24.2
--- NOTE | 2019-09-24 02:51 | CT_ITS ---
STUDY: CT ABDOMEN AND PELVIS WITHOUT CONTRAST REASON FOR EXAM: Female, 79 years old patient with left lower quadrant abdominal pain for seven hours. Past medical history include GERD, hypertension, and hypothyroidism. RADIATION DOSAGE (If Supplied By Facility): CTDIvol = ( 11.80 ) mGy, DLP = ( 464.28 ) mGycm TECHNIQUE: Transaxial images were obtained from the dome of the diaphragm to the symphysis pubis without oral contrast, and without intravenous contrast. Sagittal and coronal images were reconstructed. Individualized dose optimization techniques were used for this CT. COMPARISON: CT the abdomen and pelvis dated 12/05/2018. FINDINGS: The visualized lung bases are unremarkable. The visualized portions of the heart are within normal limits. Normal liver. The gallbladder is very distended. There appear to be small gallstones. Normal spleen. There is diffuse atrophy of the pancreas. Normal bilateral adrenal glands. There are small bilateral renal cysts with the largest measuring approximately 1.8 cm. There is a small cyst arising from the upper pole the right kidney has a mildly increased attenuation. This may represent a mildly complex cyst. Solid nodule cannot be excluded. However, this is unchanged since the previous CT. There is abnormally decreased attenuation within the mid left kidney that suggest sequela of previous ischemia or infection. This is new since the previous study and there is some parenchymal loss in this area. There is a small hiatal hernia. There is abnormal thickening of the simmons of the stomach. There is no evidence for dilated bowel, ascites or pneumoperitoneum. The small bowel has a grossly normal appearance. Stool is visible throughout the colon with scattered diverticula. The appendix is visualized and appears normal. There is multifocal atherosclerotic calcification of the abdominal aorta with mild elongation and tortuosity, but without a demonstrated aneurysm. Normal inferior vena cava. Normal retroperitoneum. Normal urinary bladder. Normal visualized uterus. Normal abdominal wall. There are diffuse degenerative changes of the visualized lumbar spine. There is a sclerotic lesion in the right iliac wing that may represent a bone island. CT/Abdomen/Pelvis W IV Cont ONLY IMPRESSION: 1. Abnormal attenuation of the left kidney is new since the previous study suggesting focal parenchymal loss possibly related to either infection or ischemia. 2. Multiple right-sided renal cysts appear similar to previous study. 3. A very distended gallbladder with cholelithiasis. 4. Nonspecific abnormal thickening of the wall of the stomach may be the result of gastritis. Electronically Signed: Kacie Lira MD at 5:40 EDT , Service support ,
--- NOTE | 2019-09-24 02:52 | ED.DCSUM_ITS ---
History of Present Illness Chief Complaint: Abd Pain Informant: Patient, Significant Other - Abdominal Pain/Flank Pain Onset: Hours - 7-8 Context: Gradual Onset Timing: Continuous Quality: Aching Location: - - left mid-abd Current Severity: Severe Maximum Severity: Severe - Nausea/Vomiting/Emesis GI Symptom: Nausea. Negative for: Vomiting Severity: Moderate - Diarrhea/Melena/Hematochezia GI Symptom: Negative for: Diarrhea, Melena, Hematochezia Associated Symptoms: Negative for: Dysuria, Frequency, Hematuria, Urgency Narrative: Gradual onset and worsening of left-sided abdominal pain. 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 None of that recent. Pain radiates into her low back, not necessarily lateralizing, difficult for the patient to tell. She states she has felt lightheaded and near syncopal once or twice since the onset. No chest pain or palpitations. - Past Medical History (1) Cerebrovascular disease Status: Chronic Comment: Remote stroke no residual deficit (2) Chronic anemia Status: Chronic (3) GERD (gastroesophageal reflux disease) Status: Chronic (4) HLD (hyperlipidemia) Status: Chronic (5) HTN (hypertension) Status: Chronic (6) History of CVA (cerebrovascular accident) Status: Chronic (7) Hypothyroidism Status: Chronic (8) Rheumatic fever without heart involvement Status: Chronic (9) Watermelon stomach Status: Chronic Past Medical History - Allergies and Home Meds Allergies/Adverse Reactions: Allergies erythromycin base [From Staticin] Adverse Reaction (Verified 09/24/19 02:40) muscle pain ok to take crestor ethyl alcohol [From Staticin] Adverse Reaction (Verified 09/24/19 02:40) muscle pain ok to take crestor niacin Adverse Reaction (Verified 09/24/19 02:40) REDNESS/FLUSHING TELEMETRY PADS Allergy (Uncoded 09/24/19 02:40) Rash Primary Care Physician: Gretta Burch DO [Primary Care Provider] - Surgical History: tonsillectomy Lives: Spouse/ Significant Other Smoking Status: Never smoker Alcohol: None - Family History Sibling Family History: Reports: Dementia Paternal Family History: Reports: Heart Disease Maternal Family History: Reports: Diabetes, Heart Disease, No pertinent history Review of Systems General: Denies: Chills, Fever, Sweats Eyes: Denies: Visual changes - bilaterally, Diplopia ENT: Denies: Rhinorrhea, Sore throat Cardiovascular: Denies: Chest pain, Palpitations Respiratory: Denies: Dyspnea, Cough, Dyspnea on exertion Gastrointestinal: Reports: Abdominal pain, Nausea. Denies: Vomiting, Diarrhea, Melena, Hematochezia Genitourinary: Denies: Dysuria, Hematuria, Frequency Musculoskeletal: Reports: Back pain. Denies: Extremity Pain Skin: Denies: Rash, Wounds Neurological: Denies: Headache, Weakness, Numbness Physical Exam Vital Signs/Narrative: Vital Signs Temp Pulse Resp BP Pulse Ox 09/24/19 02:40 97.6 F L 74 15 155/68 H 100 Inital Vital Signs reviewed: Yes General: Well nourished, Well developed, No Acute Distress Head: Normocephalic, Atraumatic Eyes: Perrl, EOMI ENT: Moist mucous membranes, No rhinorrhea Neck: Supple, Nontender Cardiovascular: Regular rate, Regular rhythm, No murmurs Respiratory: No distress, CTA bilaterally, Chest nontender Abdomen: Soft, Nondistended, Normal bowel sounds, Tender - left mid and upper abd, RLQ; otherwise, nontender, including LLQ.. Negative for: Guarding, Rebound tenderness, Pulsatile mass Back: Nontender, Normal Inspection. Negative for: CVA tenderness Extremities: Nontender, No edema Skin: Normal color, No rash Neurological: Alert, Oriented x3, Cranial nerves II-XII grossly intact, Normal Strength, Normal Sensation, Normal Gait Psychological: Normal affect, Normal Mood Diagnostic/Tx/Re-eval Impressions Abdomen/Pelvis CT 09/24/19 02:51 IMPRESSION: 1. Abnormal attenuation of the left kidney is new since the previous study suggesting focal parenchymal loss possibly related to either infection or ischemia. 2. Multiple right-sided renal cysts appear similar to previous study. 3. A very distended gallbladder with cholelithiasis. 4. Nonspecific abnormal thickening of the wall of the stomach may be the result of gastritis. Electronically Signed: Kacie Lira MD at 5:40 EDT , Service support , 09/24/19 02:51 Abdomen/Pelvis W IV Cont ONLY [CT] Stat Laboratory Results 09/24/19 09/24/19 09/24/19 03:20 03:20 04:20 WBC 5.4 RBC 3.00 L Hgb 9.0 L Hct 29.1 L MCV 97.0 MCH 30.0 MCHC 30.9 L RDW Std Deviation 56.5 H RDW Coeff of Jeferson 15.9 H Plt Count 234 MPV 10.3 Immature Gran % (Auto) 0.400 Neut % (Auto) 83.4 H Lymph % (Auto) 8.1 L [place] % (Auto) 7.0 Eos % (Auto) 0.4 Baso % (Auto) 0.7 Absolute Neuts (auto) 4.5 Absolute Lymphs (auto) 0.44 L Nucleated RBC % 0 Differential Comment SCANNED Sodium 138 Potassium 3.7 Chloride 107 Carbon Dioxide 23.0 Anion Gap 8 BUN 14 Creatinine 0.70 Estim Creat Clear Calc 33.84 Est GFR (MDRD) Af Amer 104 Est GFR (MDRD) Non-Af 86 BUN/Creatinine Ratio 20.0 Glucose 124 H Calcium 8.3 L Total Bilirubin 0.50 AST 28 ALT 22 Alkaline Phosphatase 63 Total Protein 6.0 L Albumin 3.4 Globulin 2.6 Albumin/Globulin Ratio 1.3 Lipase 73 Urine Color Yellow Urine Clarity Clear Urine pH 6.5 Ur Specific [place] 1.010 Urine Protein Negative Urine Glucose (UA) Normal Urine Ketones 5 H Urine Occult Blood Negative Urine Nitrite Positive H Urine Bilirubin Negative Urine Urobilinogen Normal Ur Leukocyte Esterase 100 H Urine RBC 0 SEEN Urine WBC 10-25 SEEN Ur Squamous Epith Cells 0 SEEN Amorphous Sediment R Urine Bacteria 1+ Urine Mucus 0 SEEN - Medical Decision Making Patient required repeated doses of IV analgesics because of the amount of pain she was in. With the results of the CT and urinalysis, my suspicion is that her pain is due to pyelonephritis. The CT was IV contrasted, and since the kidney is perfusing, this rules out an infarcted kidney. In discussing this with her, she confirms that she was having left low back pain prior to the onset of abdominal discomfort. She has been urinating a little less than usual, no dysuria or hematuria. No fevers or chills. She clinically is not septic, but will require admission due to intractable pain. Culture sent, Rocephin started empirically. ED Disposition - Plan for ED Patient: Disposition: Acute Care Hospital [facility] Diagnosis: Pyelonephritis, Intractable pain Referrals: Gretta Burch DO [Primary Care Provider] -
[2019-09-24] MEDS: Ondansetron 4 MG/2 ML Vial IV (03:19)
[2019-09-24] MEDS: 0.9% Normal Saline 1,000 ML 1000 ML IV (03:19)
[2019-09-24] MEDS: Morphine 2 MG/ML Syringe IV ×5 (03:21→17:49)
[2019-09-24 03:30] LABS: Absolute Lymphocyte Count 0.44 X10^3/uL (0.83-4.51); Absolute Neutrophil Count 4.5 X10^3/uL (2.0-7.7); Basophil# 0.04 X10^3/uL; Basophil% 0.7 % (0-1); Eosinophil# 0.02 X10^3/uL; Eosinophils% 0.4 % (0-5); Hematocrit 29.1 % (37-47); Lymphocyte # 0.44 X10^3/ul (4.0); Lymphocyte % 8.1 % (19-41); Mean Corp Hgb Conc 30.9 g/dL (32-36); Mean Platelet Vol. 10.3 fl (6.2-12.0); Monocyte# 0.38 X10^3/uL; NRBC Flagged by Analyzer 0 % (0-5); Neutrophil % 83.4 % (47-70); POSITIVE DIFFERENTIAL YES; Platelet Count 234 K/mm3 (150-450); RBC Distribution Width CV 15.9 % (11.6-14.6); RBC Distribution Width SD 56.5 fl (35.1-43.9); White Blood Count 5.4 K/mm3 (4.4-11.0)
[2019-09-24 03:31] LABS: Differential Indicated SCAN CRITERIA MET
[2019-09-24 03:45] LABS: ALB/GLOB Ratio 1.3 RATIO (0.9-2.4); AST(SGOT) 28 U/L (15-37); Alanine Aminotransfer ALT/SGPT 22 U/L (13-56); Albumin, Serum 3.4 g/dL (3.2-5.0); Alkaline Phosphatase 63 U/L (45-117); Anion Gap 8 (5-15); BUN 14 mg/dL (7-18); Calcium,Total 8.3 mg/dL (8.5-10.1); Chloride 107 mmol/L (98-107); EST Glomerular Filtration Rate 86 mL/min (>60); Est Glom Filt Rate - Afr Amer 104 mL/min (>60); Estimated Creatinine Clearance 33.84 ml/min; Globulin 2.6 g/dL (2.2-4.2); Glucose 124 mg/dL (74-106); Lipase 73 U/L (73-393); Potassium 3.7 mmol/L (3.5-5.1); Sodium Level 138 mmol/L (136-145)
[2019-09-24 04:04] LABS: Differential Comment SCANNED
[2019-09-24 04:29] LABS: Mucous, Urine 0 SEEN /hpf (<or=2+); Red Blood Cells-Urine 0 SEEN /hpf (0-5); Squamous Epithelial Cells - UA 0 SEEN /hpf (5-10)
[2019-09-24 04:31] LABS: Color, Urine Yellow (Yellow); Glucose, Dipstick Normal (Normal); Ketone-Dipstick 5 mg/dl (Negative); Leukocyte Esterase-Dipstick 100 /ul (Negative); Nitrite-Dipstick Positive (Negative); Occult Blood-Urine Negative /ul (Negative); Protein-Dipstick Negative (Negative); Urine Bilirubin Dipstick Negative (Negative); Urine Clarity Clear (Clear); Urine Urobilinogen Normal (Normal); Urine pH 6.5 (5.0 - 8.0)
[2019-09-24 04:38] LABS: Bacteria 1+ /hpf (None Seen)
[2019-09-24 04:40] LABS: White Blood Cells 10-25 SEEN /hpf (0-5)
[2019-09-24 04:41] LABS: Amorphous Sediment R
[2019-09-24] MEDS: Ceftriaxone 1 GM/50 ML BAG IV (06:01)
--- NOTE | 2019-09-24 06:11 | HP.PCM_ITS ---
History of Present Illness Date of Admission: 09/24/19 Chief Complaint: abdominal pain The patient is a 79 year old F with a past medical history as outlined. She was admitted through the ED on 09/24/2019 with a complaint of abdominal pain. Abdominal pain started 1 day before presentation and was generalized but mainly left-sided. She does describe the pain as very painful sharp and cramping with no aggravating or relieving factors. Pain was constant. She had no assisted nausea vomiting. She has a history of watermelon stomach for which she has been undergoing treatment at [facility]. She also states she has periodic blood transfusions on account of anemia and states that sometimes anemia makes her abdomen hurt as well as her having loss of energy. She has not had any blood transfusion in several months because of the coronavirus pandemic. Abdominal pain was persistent so she decided to come into the ED. He denies any frequency of urination, any burning with urination, any diarrhea and denies the pain getting worse with eating. On admission in the ED, vitals showed t emperature of 97.6 Fahrenheit with blood pressure of 105/84, pulse rate of 77 and respiratory rate of 21. She was saturating at 100% on room air. Chemistry showed sodium of 138 with potassium of 3.7 and creatinine of 0.7 glucose of 124 and total bilirubin of 0.5. AST and ALT as well as ALP were within normal limits. CBC showed hemoglobin of 9 with WBC of 5.4 and platelets of 234. Urinalysis showed 1+ bacteria with 10-25 WBCs and 100 leukocyte esterase as well as positive nitrites. CT of the abdomen and pelvis with IV contrast showed abnormal attenuation of the left kidney which was new since previous study suggesting focal parenchymal loss possibly related to the infection of ischemia, very distended gallbladder with cholelithiasis and multiple right-sided renal cysts appearing similar to previous study with nonspecific abnormal thickening of the wall of the gallbladder. She has been admitted to be managed for abdominal pain. [] Past Medical History Past Medical History (Chronic Problems): Chronic Problems HLD (hyperlipidemia) (Chronic) Watermelon stomach (Chronic) Chronic anemia (Chronic) Hypothyroidism (Chronic) History of CVA (cerebrovascular accident) (Chronic) GERD (gastroesophageal reflux disease) (Chronic) Cerebrovascular disease (Chronic) Remote stroke no residual deficit Rheumatic fever without heart involvement (Chronic) HTN (hypertension) (Chronic) Allergies erythromycin base [From Staticin] Adverse Reaction (Verified 09/24/19 02:40) muscle pain ok to take crestor ethyl alcohol [From Staticin] Adverse Reaction (Verified 09/24/19 02:40) muscle pain ok to take crestor niacin Adverse Reaction (Verified 09/24/19 02:40) REDNESS/FLUSHING TELEMETRY PADS Allergy (Uncoded 09/24/19 02:40) Rash Home Medications: Ambulatory Orders Medication Instructions Recorded Levothyroxine [Synthroid] 25 mcg PO DAILY 12/05/14 Losartan/Hydrochlorothiazide 1 tab PO DAILY 12/05/14 [Hyzaar 100-12.5 Tablet] Metoprolol Tartrate [Lopressor 50 mg PO BID 12/05/14 (beta monico)] Potassium Chloride [K-Dur] 10 meq PO BID 12/05/14 Cyanocobalamin [Vitamin B12] 500 mcg PO DAILY@0800 01/27/15 Ergocalciferol [Vitamin D] 50,000 unit PO WE 05/10/16 Omeprazole [Prilosec] 40 mg PO BID 11/09/16 Rosuvastatin Calcium [Crestor] 10 mg PO DAILY 11/09/16 Ferrous Sulfate [Iron] 325 mg PO BID 12/05/18 Multivit-Min/Iron/Folic/Lutein 1 ea PO DAILY 12/06/18 [Centrum Silver Women Tablet] Ascorbic Acid [Vitamin C] 500 mg PO TIDCM 09/24/19 Surgical History: tonsillectomy Psychiatric History: No pertinent psych hx DIGITAL MEDIA DIRECTOR History: No pertinent DIGITAL MEDIA DIRECTOR history Lives: Spouse/ Significant Other Smoking Status: Never smoker Alcohol: None Drugs: None - *Family History Sibling History Items: Dementia Paternal History Items: Heart Disease Maternal History Items: Diabetes, Heart Disease, No pertinent history Review of Systems Constitutional: Denies: Anorexia, Chills, Malaise, Weakness Eyes: Denies: Blurred vision HEENT: Denies: Head Aches, Sinus Congestion, Sinus Drainage Cardiovascular: Denies: Chest Pain, Palpitations Respiratory: Denies: Cough, Shortness of Breath, Shortness of breath at rest, Sputum production Gastrointestinal: Reports: Abdominal Pain, Melena. Denies: Diarrhea, Nausea, Vomiting Genitourinary: Denies: Dysuria Musculoskeletal: Denies: Joint Pain, Joint Tenderness Skin: Denies: Rash, Wounds Neurological: Denies: Numbness, Tingling, Focal weakness Psychiatric: Denies: Anxiety, Depression, Homicidal Ideations, Suicidal Ideations Hematologic/ Lymphatic: Denies: Easy Bruising, Easy Bleeding VTE Information - Inpt Only VTE Present on Admission: No VTE Mechan Device Prophylaxis: SCD's VTE Pharm Prophylaxis ordered?: No Patient Problems: Active and Suspected Problems Pyelonephritis (Acute) Intractable pain (Acute) - Physical Exam Vitals/I&O's: Vital Signs Temp Pulse Resp BP Pulse Ox 97.6 F L 77 21 H 105/84 H 100 09/24/19 02:40 09/24/19 05:39 09/24/19 05:39 09/24/19 05:39 09/24/19 05:39 Oxygen Delivery Method Room Air Weight: 125 lb 7.088 oz Body Mass Index (BMI) 24.5 Intake and Output for Last 24 Hours 09/22/19 09/23/19 09/24/19 23:59 23:59 23:59 Intake Total 1000 / 1000 Balance 1000 / 1000 General: Alert, Oriented x3, Cooperative, No apparent distress HEENT: Atraumatic, PERRLA, EOMI, Normocephalic Oral: Dry Mucosa Neck: Supple, No JVD, Negative Carotid Bruits Lungs: Clear to auscultation, Normal air movement, No rhonchi, No wheeze, No rales Cardiovascular: Regular rate, Regular Rhythm, Normal S1, Normal S2, No murmurs Abdomen: Bowel Sounds Present, Soft, - - moderate generalised tenderness, more pronounced in the left paraumbilical region, with no guarding or rebound tendernesss, Busby's sign is negative. Abdominal pain is out of proportion to exam findings Extremities: No edema, Capillary Refill Less than 3 Seconds Skin: No rashes, No breakdown Musculoskeletal: No Tenderness to Palpation of Joints or Extremities Lymphatic: No Cervical, Supraclavicular, or Inguinal Adenopathy Neurological: Cranial nerves II-XII grossly intact, Neuro grossly intact, Motor Exam 5/5 strength throughout Psych/Mental Status: Normal Affect, Appropriate, Alert and oriented to time, place, person, mood and affect Laboratory Results 09/24/19 03:20: WBC 5.4, RBC 3.00 L, Hgb 9.0 L, Hct 29.1 L, MCV 97.0, MCH 30.0, MCHC 30.9 L, RDW Std Deviation 56.5 H, RDW Coeff of Jeferson 15.9 H, Plt Count 234, MPV 10.3, Immature Gran % (Auto) 0.400, Neut % (Auto) 83.4 H, Lymph % (Auto) 8.1 L, [place] % (Auto) 7.0, Eos % (Auto) 0.4, Baso % (Auto) 0.7, Absolute Neuts (auto) 4.5, Absolute Lymphs (auto) 0.44 L, Nucleated RBC % 0, Differential Comment SCANNED 09/24/19 03:20: Sodium 138, Potassium 3.7, Chloride 107, Carbon Dioxide 23.0, Anion Gap 8, BUN 14, Creatinine 0.70, Estim Creat Clear Calc 33.84, Est GFR (MDRD) Af Amer 104, Est GFR (MDRD) Non-Af 86, BUN/Creatinine Ratio 20.0, Glucose 124 H, Calcium 8.3 L, Total Bilirubin 0.50, AST 28, ALT 22, Alkaline Phosphatase 63, Total Protein 6.0 L, Albumin 3.4, Globulin 2.6, Albumin/Globulin Ratio 1.3, Lipase 73 09/24/19 04:20: Urine Color Yellow, Urine Clarity Clear, Urine pH 6.5, Ur Specific [place] 1.010, Urine Protein Negative, Urine Glucose (UA) Normal, Urine Ketones 5 H, Urine Occult Blood Negative, Urine Nitrite Positive H, Urine Bilirubin Negative, Urine Urobilinogen Normal, Ur Leukocyte Esterase 100 H, Urine RBC 0 SEEN, Urine WBC 10-25 SEEN, Ur Squamous Epith Cells 0 SEEN, Amorphous Sediment R, Urine Bacteria 1+, Urine Mucus 0 SEEN Diagnostic Data Abdomen/Pelvis CT 09/24/19 02:51 IMPRESSION: 1. Abnormal attenuation of the left kidney is new since the previous study suggesting focal parenchymal loss possibly related to either infection or ischemia. 2. Multiple right-sided renal cysts appear similar to previous study. 3. A very distended gallbladder with cholelithiasis. 4. Nonspecific abnormal thickening of the wall of the stomach may be the result of gastritis. Electronically Signed: Kacie Lira MD at 5:40 EDT , Service support , Current Medications Ceftriaxone Sodium (Rocephin) 1 gm in 50 mls @ 100 mls/hr IV X1 ONE Stop: 09/24/19 06:17 Last Admin: 09/24/19 06:01 Dose: 100 mls/hr Documented by: Assessment/Plan All Active Problems Pyelonephritis (Acute) Intractable pain (Acute) Syncope and collapse (Acute) Hip pain (Acute) Symptomatic anemia (Acute) 79 y/o admitted with a complaint of left sided abdominal pain 1. Acute left sided abdominal pain * differentials include acute mesenteric ischemia VS left renal infarct vs left pyelonephritis * I doubt patient has pyelonephritis as she has no elevated wbc, no fever, and no costophrenic angle tenderness. Her pain is out of proportion to examination findings, making me worried about a vascular pathology * CT abdomen and pelvis with IV contrast showed abnormal attenuation ofthe left kidney which is new since previous study suggesting focal parenchymal loss either due to infecdtion or ishcmeia, multiple right-sided renal cysts unless previous studies and a very distended gallbladder with cholelithiasis as well as nonspecific abnormal wall thickening which may be due to gastritis. * will get stat CTA of the abdomen and pelvis to evaluate for acute mesenteric ischemia. discussed with radiology staff; since patient just received contrast with CT abdomen pelvis; they can do CTA stat with a reduced amount of contrast, and patient to be hydrated afterwards. * hydrate wtih IVF and monitor; hold BP meds to keep BP up to help with perfusion * will give IV ceftriaxone in light of UTI * will start therapeutic anticoagulation if mesenteric ischemia is confirmed * consider general surgery consult for distended gallbladder if CTA is negative * 2. UTI: UA showed evidence of UTI. get urine culture, adn cotninue IV ceftriaxone 3. Hypertension: * On losartan hydrochlorothiazide and metoprolol. * Will hold these for now due to concerns about mesenteric ischemia. * Blood pressure is 105/84. 4. Anemia: * Hb is 9, which is around her baseline. * She often requires periodic transfusions to keep her Hb up. on iron supplementation. * Says she has dark stools, but this may be due to iron supplementation. * monitor Hb closely * 5. History of watermelon stomach: undergoes treatment at [facility]. Also follows with Dr. Mcrae. States she requires periodic blood transfusions. 6. Hypothyroidism: on synthroid. 7. Hyperlipidemia: on statin DVT prophylaxis: lovenox Code status: full code * Patient counseled extensively about different types of CODE STATUS including full code, DNR CCA and DNR CCA. Patient elects to be full code. * Total [id number] time 16 minutes. Inpatient E&M: 00299 Init Hosp L3 OBSV E&M: 89371 Initial observation care L3 Procedures: 58904 Advncd Care Plan 30 Min
--- NOTE | 2019-09-24 07:07 | CT_ITS ---
STUDY: CTA OF THE ABDOMEN AND PELVIS REASON FOR EXAM: Female, 79 years old patient with possible left-sided renal infarct. RADIATION DOSAGE (If Supplied By Facility): CTDIvol = ( 22.35 ) mGy, DLP = ( 413.16 ) mGycm TECHNIQUE: Axial CT angiography multi-detector data acquisition was obtained from the lung bases to the proximal thighs following intravenous administration of 75 ml of Isovue-370 contrast. Axial images and MIP images were reconstructed from the axial data set. Post-processing of the angiographic images was performed, with multiplanar reformation and 3D reconstruction. Individualized dose optimization techniques were used for this CT. TECHNICAL QUALITY: Good COMPARISON: CT abdomen and pelvis dated 08/25/2019. Descriptors of Narrowing: None (0%) Mild (< 50%) Moderate (50-70%) Severe (70-90%) Subtotal/Total Occlusion (90-100%) Non-Evaluable (technically non-diagnostic) FINDINGS: Abdominal aorta: No demonstrated narrowing. Celiac and superior mesenteric arteries: There is densely calcified atherosclerotic plaque with mild narrowing of the origin of the celiac axis. The these cystic axis otherwise patent. There is evidence for calcification of the origin of the superior mesenteric artery without appreciable narrowing. The superior mesenteric artery is widely patent. Inferior mesenteric artery: No demonstrated narrowing. Right renal artery(arteries): There is mild diffuse narrowing. Left renal artery(arteries): No demonstrated narrowing. Right common iliac artery: There is mild diffuse narrowing. Right external iliac artery: No demonstrated narrowing. Right internal iliac artery: There is mild diffuse narrowing. Left common iliac artery: No demonstrated narrowing. Left external iliac artery: No demonstrated narrowing. Left internal iliac artery: There is mild diffuse narrowing. ABDOMINAL AND PELVIC FINDINGS: The visualized lung bases are unremarkable. The visualized portions of the heart are within normal limits. There is decreased attenuation of the liver consistent with steatosis. The gallbladder is very distended. There appear to be small gallstones. Normal spleen. There is diffuse atrophy of the pancreas. Normal bilateral adrenal glands. There are small bilateral renal cysts with the largest measuring approximately 1.8 cm. There is a small cyst arising from the upper pole the right kidney has a mildly increased attenuation. This may represent a mildly complex cyst. However, this is unchanged since the previous CT. There is abnormally decreased attenuation within the mid left kidney that suggest sequela of previous ischemia or infection. This is new since the previous study and there is some parenchymal loss in this area. There is a small hiatal hernia. There is abnormal thickening of the simmons of the stomach. There is no evidence for dilated bowel, ascites or pneumoperitoneum. The small bowel has a grossly normal appearance. Stool is visible throughout the colon with scattered diverticula. The appendix is visualized and appears normal. There is multifocal atherosclerotic calcification of the abdominal aorta with mild elongation and tortuosity, but without a demonstrated aneurysm. Normal inferior vena cava. Normal retroperitoneum. Normal urinary bladder. Normal visualized uterus. There is a right-sided inguinal hernia containing adipose tissue. There are diffuse degenerative changes of the visualized lumbar spine. There is a sclerotic lesion in the right iliac wing that may represent a bone island. CT/CT ANGIO ABD&PEL W/O&W/DYE IMPRESSION: 1. No CT evidence for hemodynamically significant stenosis, acute thrombosis or dissection. 2. Unchanged appearance of left kidney with findings suggestive with sequela of ischemia and/or infection. 3. Cholelithiasis with distended gallbladder. Electronically Signed: Kacie Lira MD at 9:34 EDT , Service support ,
[2019-09-24 08:08] LABS: Lactic Acid 1.7 mmol/L (0.4-1.9)
--- NOTE | 2019-09-24 08:20 | NURSING ---
morphine pulled per pt request- then pt requested to have CT completed first. Packaging removed from morphine- placed in locked drawer awaiting return of pt.
--- NOTE | 2019-09-24 08:22 | EKG12_ITS ---
Test Reason : ROUTINE Blood Pressure : / mmHG Vent. Rate : 062 BPM Atrial Rate : 062 BPM P-R Int : 172 ms QRS Dur : 080 ms QT Int : 434 ms P-R-T Axes : 027 -03 -25 degrees QTc Int : 440 ms Normal sinus rhythm Nonspecific ST and T wave abnormality Abnormal ECG When compared with ECG of 06-DEC-2018 12:08, Premature atrial complexes are no longer Present Confirmed by FRANCOISE GROSS, BROCK ([id number]), avid editor VANIA DRAKE ([id number]) on 09/29/2019 2:07:09 PM Referred By: BRITT Confirmed By:JJ OWUSU MD
--- NOTE | 2019-09-24 08:31 | PCM.PN.BLA ---
Progress Note This is a 79 years old female patient presented to the emergency room because of left upper quadrant abdominal pain started yesterday, dull aching pain, sometimes sharp, had left flank pain as well yesterday but improved today, still having left upper quadrant abdominal pain, it was 10 out of 10 in severity yesterday, improved to 4 out of 10 today. She denied nausea or vomiting. She denied fever or chills. No aggravating or relieving factors. She denied urinary symptoms. Today, abdomen pain improved down to 4 oxygen severity but still there, mainly on the left upper quadrant. She denied epigastric pain, nausea or vomiting. 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 Routine blood work was remarkable for anemia, hemoglobin is 9 g/dL, stable, other routine blood work was unremarkable. LFT and lipase were normal. Lactic acid was normal. Urinalysis revealed clear urine, positive for nitrite, there was 10-25 WBCs, 1+ bacteria. Physical examination is remarkable for left upper quadrant tenderness, otherwise normal. She is on IV Rocephin for UTI. She is on IV fluids and IV morphine PRN for pain. CT scan abdomen and pelvis with IV contrast revealed abnormal attenuation of the left kidney suggestive of focal parenchymal loss could be due to infection or ischemia. CTA abdomen pelvis ordered to rule out bowel ischemia. Renal infarct could be another reason for her pain. I ordered EKG to rule out any cardiac arrhythmias that may cause thromboembolic phenomena. Patient denied any past history of cardiac diseases. STROKE Vital Signs/Narrative: Vital Signs Temp Pulse Resp BP Pulse Ox 09/24/19 07:15 98.2 F 71 20 H 150/63 H 100 09/24/19 07:03 98.7 F 77 16 118/65 100 09/24/19 05:39 77 21 H 105/84 H 100 09/24/19 04:39 78 25 H 127/62 H 100
[2019-09-24] MEDS: 0.9% Normal Saline 1,000 ML 74 ML IV ×2 (09:37→21:29)
[2019-09-24] MEDS: 0.9% Saline Lock 10 ML Syringe IV ×3 (09:37→17:49)
[2019-09-24] MEDS: Morphine 4 MG/ML Syringe IV (09:37)
[2019-09-24] MEDS: Enoxaparin 40 MG/0.4 ML Syringe SC (09:54)
[2019-09-24] MEDS: Levothyroxine 25 MCG TABLET PO (09:58)
[2019-09-24] MEDS: Pantoprazole Sodium 40 MG Tablet PO ×2 (09:58→21:26)
[2019-09-24] MEDS: hydroCHLOROthiazide 12.5mg 12.5 MG PO (09:58)
[2019-09-24] MEDS: Metoprolol Tartrate 50 MG Tablet PO ×2 (09:58→21:26)
[2019-09-24] MEDS: Losartan Potassium 100 MG Tablet PO (10:01)
--- NOTE | 2019-09-24 10:35 | CASEMGMT ---
RN KELLIE Face to Face with patient for initial transition planning/care coordination assessment. RN CM introduced self and role at [facility]. Patient lying in bed, alert and oriented, at bedside. Patient willing to participate in assessment and is able to answer all questions appropriately. Care providers, pharmacy, and demographics verified. Patient wishes to discharge home, denies need for home health at this time. Patient states she has no further needs or concerns at this time. CM to follow for discharge planning needs that may arise. PCP: Marcin Specialists: Mark, oncologist/underwriting sales representative [facility]acy[facility] Insurance: Andie GARCIA Prescription Benefit: yes Living Will/HPOA: none LNOK: Living Arrangements: Patient lives with in a single story home with 4-5 steps and railing to enter the home. Patient states she is independent at home. Transportation: DME/HHC: Patient states she has walker and cane at home. Patient denies need for HHC. Disposition Plan: Patient to discharge home with family support and follow-up plans in place. Hina FITZPATRICK, RN, CM
[2019-09-24] MEDS: Ferrous Sulfate 325 MG Tablet PO ×2 (11:09→16:41)
[2019-09-25] VITALS (16 sets, daily range): BP systolic 103–127; BP diastolic 50–62; PULSE 70–93; RESP 16–20; TEMP 36.7–38.5; O2SAT 98–100
[2019-09-25] MEDS: Acetaminophen 325 MG Tablet 650 MG PO ×3 (04:09→20:30)
[2019-09-25 06:04] LABS: Absolute Lymphocyte Count 0.34 X10^3/uL (0.83-4.51); Absolute Neutrophil Count 6.7 X10^3/uL (2.0-7.7); Basophil# 0.03 X10^3/uL; Basophil% 0.4 % (0-1); Eosinophil# 0.01 X10^3/uL; Eosinophils% 0.1 % (0-5); Hematocrit 26.9 % (37-47); Hemoglobin 8.2 g/dL (12.0-15.0); Lymphocyte # 0.34 X10^3/ul (4.0); Lymphocyte % 4.5 % (19-41); Mean Corp Hgb Conc 30.5 g/dL (32-36); Mean Corpuscular Hgb 30.1 pg (27.0-32.0); Mean Corpuscular Volume 98.9 fL (81-99); Mean Platelet Vol. 9.9 fl (6.2-12.0); Monocyte# 0.45 X10^3/uL; Monocyte% 5.9 % (0-10); NRBC Flagged by Analyzer 0 % (0-5); Neutrophil # 6.74 X10^3/uL (2.7-7.7); Neutrophil % 88.7 % (47-70); POSITIVE DIFFERENTIAL YES; Platelet Count 207 K/mm3 (150-450); RBC Distribution Width CV 15.8 % (11.6-14.6); RBC Distribution Width SD 56.9 fl (35.1-43.9); Red Blood Count 2.72 M/mm3 (4.2-5.4); White Blood Count 7.6 K/mm3 (4.4-11.0)
[2019-09-25 06:05] LABS: Differential Indicated SCAN CRITERIA MET
[2019-09-25 06:21] LABS: Anion Gap 4 (5-15); BUN 7 mg/dL (7-18); BUN/Creat Ratio 12.7 RATIO (10-20); Calcium,Total 7.6 mg/dL (8.5-10.1); Chloride 110 mmol/L (98-107); Creatinine, Serum 0.55 mg/dL (0.55-1.02); EST Glomerular Filtration Rate 113 mL/min (>60); Est Glom Filt Rate - Afr Amer 137 mL/min (>60); Estimated Creatinine Clearance 33.84 ml/min; Glucose 113 mg/dL (74-106); Potassium 3.1 mmol/L (3.5-5.1); Sodium Level 139 mmol/L (136-145)
[2019-09-25 06:23] LABS: Differential Comment SCANNED
[2019-09-25] MEDS: Levothyroxine 25 MCG TABLET PO (06:26)
[2019-09-25] MEDS: 0.9% Saline Lock 10 ML Syringe IV ×2 (08:17→18:49)
[2019-09-25] MEDS: Pantoprazole Sodium 40 MG Tablet PO ×2 (08:29→20:31)
[2019-09-25] MEDS: Losartan Potassium 100 MG Tablet PO ×2 (08:29→08:30)
[2019-09-25] MEDS: hydroCHLOROthiazide 12.5mg 12.5 MG PO (09:41)
[2019-09-25] MEDS: Ceftriaxone 1 GM/50 ML BAG IV (09:41)
[2019-09-25] MEDS: Metoprolol Tartrate 50 MG Tablet PO ×2 (09:41→20:31)
[2019-09-25] MEDS: Ferrous Sulfate 325 MG Tablet PO ×2 (12:29→16:18)
[2019-09-25] MEDS: Enoxaparin 40 MG/0.4 ML Syringe SC (12:29)
--- NOTE | 2019-09-25 12:53 | PCM.PN.HOSP ---
Patient Problems: Active and Suspected Problems Pyelonephritis (Acute) Intractable pain (Acute) Subjective: She denies any left-sided pain today. She is feeling a little bit better today. Vitals/I&O's: Vital Signs Temp Pulse Resp BP Pulse Ox 98.1 F 76 16 127/50 H 100 09/25/19 12:34 09/25/19 12:34 09/25/19 12:34 09/25/19 12:34 09/25/19 12:34 Oxygen Delivery Method Room Air Weight: 123 lb 10.869 oz Body Mass Index (BMI) 24.1 Intake and Output for Last 24 Hours 09/23/19 09/24/19 09/25/19 23:59 23:59 23:59 Intake Total 1988.2002. 1225 / 1225 Output Total 1100 / 1700 1200 / 1200 Balance 888.13 / 303.13 General: Alert, Oriented x3, Cooperative, No apparent distress HEENT: Atraumatic, PERRLA, EOMI, Normocephalic Oral: Moist Mucosa Neck: Supple, No JVD Lungs: Clear to auscultation, Normal air movement, No rhonchi, No wheeze, No rales, Diminished Cardiovascular: Regular rate, Regular Rhythm, Normal S1, Normal S2, No murmurs Abdomen: Soft, Non Tender, Non-Distended, No Hepato-splenomegaly Extremities: No edema, Capillary Refill Less than 3 Seconds Skin: No rashes, No breakdown Neurological: Neuro grossly intact, Sensory exam intact to light touch and pain Psych/Mental Status: Normal Affect, Appropriate Microbiology Past 72 Hours 09/24/19 04:20 Urine, Clean Catch Urine Culture - Preliminary Presumptive E. coli Laboratory Results 09/25/19 05:54: WBC 7.6, RBC 2.72 L, Hgb 8.2 L, Hct 26.9 L, MCV 98.9, MCH 30.1, MCHC 30.5 L, RDW Std Deviation 56.9 H, RDW Coeff of Jeferson 15.8 H, Plt Count 207, MPV 9.9, Immature Gran % (Auto) 0.400, Neut % (Auto) 88.7 H, Lymph % (Auto) 4.5 L, [place] % (Auto) 5.9, Eos % (Auto) 0.1, Baso % (Auto) 0.4, Absolute Neuts (auto) 6.7, Absolute Lymphs (auto) 0.34 L, Nucleated RBC % 0, Differential Comment SCANNED 09/25/19 05:54: Sodium 139, Potassium 3.1 L, Chloride 110 H, Carbon Dioxide 25.0, Anion Gap 4 L, BUN 7, Creatinine 0.55, Estim Creat Clear Calc 33.84, Est GFR (MDRD) Af Amer 137, Est GFR (MDRD) Non-Af 113, BUN/Creatinine Ratio 12.7, Glucose 113 H, Calcium 7.6 L Current Medications Acetaminophen (Tylenol) 650 mg PO Q6H PRN PRN PRN Reason: Pain 1-10/temp >100.7F Last Admin: 09/25/19 09:47 Dose: 650 mg Documented by: Atorvastatin Calcium (Lipitor) 20 mg PO QHS [facility] Last Admin: 09/24/19 21:24 Dose: Not Given Documented by: Dextrose (D50w Syringe) 0 gm IV X1 PRN; Protocol PRN Reason: Hypoglycemia Enoxaparin Sodium (Lovenox) 40 mg SC DAILY [facility] Last Admin: 09/25/19 12:29 Dose: 40 mg Documented by: Ferrous Sulfate (Ferrous Sulfate) 325 mg PO BID@1200,1700 [facility] Last Admin: 09/25/19 12:29 Dose: 325 mg Documented by: Glucagon () 1 mg IM .X1 PRN PRN Reason: Hypoglycemia Hydrochlorothiazide () 12.5 mg PO DAILY [facility] Last Admin: 09/25/19 09:41 Dose: 12.5 mg Documented by: Sodium Chloride () 250 mls @ 15 mls/hr IV .[id number] PRN PRN Reason: Saline Flush Sodium Chloride () 1,000 mls @ 74 mls/hr IV .[id number] [facility] Stop: 09/25/19 23:47 Last Infusion: 09/25/19 12:32 Dose: Infused Documented by: Ceftriaxone Sodium (Rocephin) 1 gm in 50 mls @ 100 mls/hr IV Q24 [facility] Last Infusion: 09/25/19 10:11 Dose: Infused Documented by: Levothyroxine Sodium (Synthroid) 25 mcg PO DAILY@0600 [facility] Last Admin: 09/25/19 06:26 Dose: 25 mcg Documented by: Losartan Potassium (Cozaar) 100 mg PO DAILY [facility] Last Admin: 09/25/19 08:30 Dose: 100 mg Documented by: Metoprolol Tartrate (Lopressor (Beta Katerine)) 50 mg PO BID [facility] Last Admin: 09/25/19 09:41 Dose: 50 mg Documented by: Morphine Sulfate () 2 mg IV Q3H PRN PRN PRN Reason: Pain Score 6-10/10 Last Admin: 09/24/19 17:49 Dose: 2 mg Documented by: Ondansetron HCl (Zofran) 4 mg IV Q8H PRN PRN PRN Reason: NAUSEA/VOMITING Oxycodone HCl (Oxyir) 5 mg PO Q4H PRN PRN PRN Reason: Pain Score 4-5/10 Pantoprazole Sodium (Protonix) 40 mg PO BID [facility] Last Admin: 09/25/19 08:29 Dose: 40 mg Documented by: Potassium Ch[facility] ([facility]Dur) [facility] Last Admin: 09/25/19 08:15 Dose: 10 meq Documented by: Sodium Chloride () 10 - 40 ml IV UD PRN PRN Reason: SALINE FLUSH Last Admin: 09/25/19 08:17 Dose: 10 ml Documented by: STROKE Vital Signs/Narrative: Vital Signs Temp Pulse Resp BP Pulse Ox 09/25/19 12:34 98.1 F 76 16 127/50 H 100 09/25/19 12:18 74 09/25/19 09:41 75 116/53 L Medical Necessity - Tobacco Use Smoking Status: Former smoker Tobacco Use: Cigarettes Assessment/Plan All Active Problems Pyelonephritis (Acute) Intractable pain (Acute) Syncope and collapse (Acute) Hip pain (Acute) Symptomatic anemia (Acute) 1. Acute left-sided abdominal pain/UTI -This has resolved -CT of the abdomen showed a possible renal infarct on the left -Urine culture with 50-80,000 CFU of gram-negative juliette -Continue with IV antibiotics -We will start her on a diet and see how she does 2. HTN/HLD -Blood pressure stable -Continue with her home blood pressure medications -Continue her statin 3. Chronic iron deficiency anemia -Hemoglobin dropped a little bit secondary to IV fluids -We will continue to monitor, continue with her iron supplementation 4. Hypothyroidism -Stable -Continue with Synthroid 5. Watermelon stomach -She is seen at [facility] for this -Continue with PPI DVT: Lovenox Inpatient E&M: 89658 Subs Hosp L2
[2019-09-25] MEDS: 0.9% Normal Saline 1,000 ML 74 ML IV (16:17)
[2019-09-25] MEDS: Ascorbic Acid 500 MG Tablet PO (16:19)
[2019-09-25] MEDS: Atorvastatin Calcium 20 MG Tablet PO (20:32)
[2019-09-26] VITALS (9 sets, daily range): BP systolic 103–123; BP diastolic 46–58; PULSE 70–86; RESP 16–18; TEMP 36.8–37.2; O2SAT 96–100
[2019-09-26] MEDS: Levothyroxine 25 MCG TABLET PO (05:54)
[2019-09-26 06:59] LABS: Absolute Lymphocyte Count 0.33 X10^3/uL (0.83-4.51); Absolute Neutrophil Count 6.5 X10^3/uL (2.0-7.7); Basophil# 0.03 X10^3/uL; Basophil% 0.4 % (0-1); Eosinophil# 0.02 X10^3/uL; Eosinophils% 0.3 % (0-5); Hematocrit 25.2 % (37-47); Hemoglobin 7.9 g/dL (12.0-15.0); Lymphocyte # 0.33 X10^3/ul (4.0); Lymphocyte % 4.5 % (19-41); Mean Corp Hgb Conc 31.3 g/dL (32-36); Mean Corpuscular Hgb 30.9 pg (27.0-32.0); Mean Corpuscular Volume 98.4 fL (81-99); Mean Platelet Vol. 10.3 fl (6.2-12.0); Monocyte# 0.46 X10^3/uL; Monocyte% 6.3 % (0-10); NRBC Flagged by Analyzer 0 % (0-5); Neutrophil # 6.49 X10^3/uL (2.7-7.7); Neutrophil % 88.1 % (47-70); POSITIVE DIFFERENTIAL YES; Platelet Count 190 K/mm3 (150-450); RBC Distribution Width CV 15.5 % (11.6-14.6); RBC Distribution Width SD 56.6 fl (35.1-43.9); Red Blood Count 2.56 M/mm3 (4.2-5.4); White Blood Count 7.4 K/mm3 (4.4-11.0)
[2019-09-26 07:06] LABS: Differential Indicated SCAN CRITERIA MET
[2019-09-26 07:13] LABS: Anion Gap 5 (5-15); BUN 9 mg/dL (7-18); BUN/Creat Ratio 18.9 RATIO (10-20); Calcium,Total 7.7 mg/dL (8.5-10.1); Chloride 112 mmol/L (98-107); Creatinine, Serum 0.48 mg/dL (0.55-1.02); EST Glomerular Filtration Rate 135 mL/min (>60); Est Glom Filt Rate - Afr Amer 163 mL/min (>60); Estimated Creatinine Clearance 33.84 ml/min; Glucose 109 mg/dL (74-106); Potassium 3.1 mmol/L (3.5-5.1); Sodium Level 140 mmol/L (136-145)
[2019-09-26] MEDS: Cyanocobalamin 500 MCG Tablet PO (07:35)
[2019-09-26] MEDS: Ascorbic Acid 500 MG Tablet PO ×2 (07:35→12:05)
[2019-09-26] MEDS: 0.9% Saline Lock 10 ML Syringe IV (10:00)
[2019-09-26] MEDS: Enoxaparin 40 MG/0.4 ML Syringe SC (10:01)
[2019-09-26] MEDS: hydroCHLOROthiazide 12.5mg 12.5 MG PO (10:01)
[2019-09-26] MEDS: Metoprolol Tartrate 50 MG Tablet PO (10:01)
[2019-09-26] MEDS: Pantoprazole Sodium 40 MG Tablet PO (10:02)
[2019-09-26] MEDS: Ceftriaxone 1 GM/50 ML BAG IV (10:03)
--- NOTE | 2019-09-26 11:09 | PCM.DC ---
- Discharge Diagnoses Current Active Problems: Current Active and Chronic Problems Pyelonephritis (Acute) Intractable pain (Acute) You will use the following diet at home:: Cardiac Your food should be the consistency of: Regular Your liquids should be the consistency of: Regular/Thin Discharge Activity: Return to Normal Activity Call your doctor if you observe: Fever of 101 or Higher, Shortness of breath, Dizziness, Fainting spells, Swelling in the ankles, Chest pain, Increased palpitations (irregular heartbeat) Allergies/Adverse Reactions: Allergies erythromycin base [From Staticin] Adverse Reaction (Verified 09/24/19 02:40) muscle pain ok to take crestor ethyl alcohol [From Staticin] Adverse Reaction (Verified 09/24/19 02:40) muscle pain ok to take crestor niacin Adverse Reaction (Verified 09/24/19 02:40) REDNESS/FLUSHING TELEMETRY PADS Allergy (Uncoded 09/24/19 02:40) Rash Medications to take at Discharge Levothyroxine [Synthroid] 25 mcg PO DAILY 12/05/14 Losartan/Hydrochlorothiazide [Hyzaar 100-12.5 Tablet] 1 tab PO DAILY 12/05/14 Metoprolol Tartrate [Lopressor (beta monico)] 50 mg PO BID 12/05/14 Potassium Chloride [K-Dur] 10 meq PO BID 12/05/14 Cyanocobalamin [Vitamin B12] 500 mcg PO DAILY@0800 01/27/15 Ergocalciferol [Vitamin D] 50,000 unit PO WE 05/10/16 Omeprazole [Prilosec] 40 mg PO BID 11/09/16 Rosuvastatin Calcium [Crestor] 10 mg PO DAILY 11/09/16 Ferrous Sulfate [Iron] 325 mg PO BID 12/05/18 Multivit-Min/Iron/Folic/Lutein [Centrum Silver Women Tablet] 1 ea PO DAILY 12/06/18 Ascorbic Acid [Vitamin C] 500 mg PO TIDCM 09/24/19 Cefdinir [Omnicef [equiv]] 300 mg PO Q12H #10 cap 09/26/19 The following prescriptions were given: Cefdinir [Omnicef [equiv]] 300 mg PO Q12H #10 cap Transmission Status: Pending to [facility]/pharmacy #[id number] Primary Care Physician: Gretta Burch DO [Primary Care Provider] - Please follow up with your Primary Care Physician in: 3-5 days Test Results: Test results from this visit will be discussed in further detail at your follow-up appointment, if applicable.
[2019-09-26] MEDS: Ferrous Sulfate 325 MG Tablet PO (12:05)
[2019-09-26] MEDS: predniSONE 20 MG Tablet 40 MG PO (12:10)
[2019-09-26] MEDS: DiphenhydrAMINE 25 MG Capsule PO (12:11)
[2019-09-26] MEDS: Acetaminophen 325 MG Tablet 650 MG PO (12:11)
--- NOTE | 2019-09-26 17:26 | PCM.DC.SUM ---
Discharge Date and Diagnosis Date of Admission: 09/24/19 Date of Discharge: 09/26/19 - Secondary Discharge Diagnosis Chronic Problems: Chronic Problems HLD (hyperlipidemia) (Chronic) Watermelon stomach (Chronic) Chronic anemia (Chronic) Hypothyroidism (Chronic) History of CVA (cerebrovascular accident) (Chronic) GERD (gastroesophageal reflux disease) (Chronic) Cerebrovascular disease (Chronic) Remote stroke no residual deficit Rheumatic fever without heart involvement (Chronic) HTN (hypertension) (Chronic) Hospital Course and Treatment Imaging Results: CT Abd/Pelvis: IMPRESSION: 1. Abnormal attenuation of the left kidney is new since the previous study suggesting focal parenchymal loss possibly related to either infection or ischemia. 2. Multiple right-sided renal cysts appear similar to previous study. 3. A very distended gallbladder with cholelithiasis. 4. Nonspecific abnormal thickening of the wall of the stomach may be the result of gastritis. CTA Abd/Pelvis: IMPRESSION: 1. No CT evidence for hemodynamically significant stenosis, acute thrombosis or dissection. 2. Unchanged appearance of left kidney with findings suggestive with sequela of ischemia and/or infection. 3. Cholelithiasis with distended gallbladder. Consults: None Operations: None Procedures: None Summary of Care Provided: Per HPI: The patient is a 79 year old F with a past medical history as outlined. She was admitted through the ED on 09/24/2019 with a complaint of abdominal pain. Abdominal pain started 1 day before presentation and was generalized but mainly left-sided. She does describe the pain as very painful sharp and cramping with no aggravating or relieving factors. Pain was constant. She had no assisted nausea vomiting. She has a history of watermelon stomach for which she has been undergoing treatment at [facility]. She also states she has periodic blood transfusions on account of anemia and states that sometimes anemia makes her abdomen hurt as well as her having loss of energy. She has not had any blood transfusion in several months because of the coronavirus pandemic. Abdominal pain was persistent so she decided to come into the ED. He denies any frequency of urination, any burning with urination, any diarrhea and denies the pain getting worse with eating. On admission in the ED, vitals showed temperature of 97.6 Fahrenheit with blood pressure of 105/84, pulse rate of 77 and respiratory rate of 21. She was saturating at 100% on room air. Chemistry showed sodium of 138 with potassium of 3.7 and creatinine of 0.7 glucose of 124 and total bilirubin of 0.5. AST and ALT as well as ALP were within normal limits. CBC showed hemoglobin of 9 with WBC of 5.4 and platelets of 234. Urinalysis showed 1+ bacteria with 10-25 WBCs and 100 leukocyte esterase as well as positive nitrites. CT of the abdomen and pelvis with IV contrast showed abnormal attenuation of the left kidney which was new since previous study suggesting focal parenchymal loss possibly related to the infection of ischemia, very distended gallbladder with cholelithiasis and multiple right-sided renal cysts appearing similar to previous study with nonspecific abnormal thickening of the wall of the gallbladder. She has been admitted to be managed for abdominal pain. Hospital Course: 1. Acute left-sided abdominal pain with UTI with E. uvru-67-may[age]-old female who presented with acute abdominal pain on the left side which resolved on its own by the next day of admission. CTA of the abdomen and pelvis showed signs of a prior infarct in her left kidney with no narrowing in her left renal artery. She also had a distended gallbladder however she had no signs of cholecystitis and did not have any right upper quadrant pain and a normal white count without a leukocytosis. She did develop diarrhea however when I discussed with her testing and possibly staying another day for results she refused and wanted to go home. She states that she does not get any sleep here, she says that she does have difficulty with her bowels generally because of the watermelon stomach, she is used to getting transfusions as well with her last one being last November. She was found to be anemic today below 8 and therefore she was transfused 1 unit and was told to follow-up with her outpatient PCP. She was also getting transfusions by the [facility] Dr. Flores therefore I recommended that she follow-up with him as well as an outpatient. I discussed the risk and benefits of going home with both her and her , both expressed understanding. We will continue with antibiotics for 5 more days on discharge she was provided with a prescription of Omnicef 300 mg p.o. twice daily. 2. Hypertension, hyperlipidemia, chronic iron deficiency anemia, hypothyroidism, watermelon stomach, are all chronic illnesses that complicate her care. Her home medications were evaluated and continued where appropriate. - Physical Exam Vitals/I&O's: Vital Signs Temp Pulse Resp BP Pulse Ox 98.9 F 70 16 123/53 H 100 09/26/19 16:06 09/26/19 16:06 09/26/19 16:06 09/26/19 16:06 09/26/19 16:06 Oxygen Delivery Method Room Air Weight: 123 lb 10.869 oz Body Mass Index (BMI) 24.1 Intake and Output for Last 24 Hours 09/24/19 09/25/19 09/26/19 23:59 23:59 23:59 Intake Total 1987.2002.13 1675 / 1675 1450 / 1450 Output Total 1100 / 1700 1200 / 1200 Balance 888.13 / 303.13 475 / 475 1450 / 1450 General: Alert, Oriented x3, Cooperative, No apparent distress HEENT: Atraumatic, PERRLA, EOMI, Normocephalic Oral: Moist Mucosa Neck: Supple, No JVD Lungs: Clear to auscultation, Normal air movement, No rhonchi, No wheeze, No rales, Diminished Cardiovascular: Regular rate, Regular Rhythm, Normal S1, Normal S2, No murmurs Abdomen: Soft, Non Tender, Non-Distended, No Hepato-splenomegaly Extremities: No edema, Capillary Refill Less than 3 Seconds Skin: No rashes, No breakdown Neurological: Neuro grossly intact, Sensory exam intact to light touch and pain Psych/Mental Status: Normal Affect, Appropriate Microbiology Past 72 Hours 09/24/19 04:20 Urine, Clean Catch Urine Culture - Final Presumptive E. coli Laboratory Results 09/26/19 06:45: WBC 7.4, RBC 2.56 L, Hgb 7.9 L, Hct 25.2 L, MCV 98.4, MCH 30.9, MCHC 31.3 L, RDW Std Deviation 56.6 H, RDW Coeff of Jeferson 15.5 H, Plt Count 190, MPV 10.3, Immature Gran % (Auto) 0.400, Neut % (Auto) 88.1 H, Lymph % (Auto) 4.5 L, [place] % (Auto) 6.3, Eos % (Auto) 0.3, Baso % (Auto) 0.4, Absolute Neuts (auto) 6.5, Absolute Lymphs (auto) 0.33 L, Nucleated RBC % 0, Differential Comment COMMENT 09/26/19 06:45: Sodium 140, Potassium 3.1 L, Chloride 112 H, Carbon Dioxide 23.0, Anion Gap 5, BUN 9, Creatinine 0.48 L, Estim Creat Clear Calc 33.84, Est GFR (MDRD) Af Amer 163, Est GFR (MDRD) Non-Af 135, BUN/Creatinine Ratio 18.9, Glucose 109 H, Calcium 7.7 L, Magnesium 2.0 09/26/19 10:52: Blood Type O POSITIVE, Antibody Screen NEGATIVE, Crossmatch See Detail Discharge Activity: Return to Normal Activity Call your doctor if you observe: Fever of 101 or Higher, Shortness of breath, Dizziness, Fainting spells, Swelling in the ankles, Chest pain, Increased palpitations (irregular heartbeat) Home Medications: Medications to take at Discharge Levothyroxine [Synthroid] 25 mcg PO DAILY 12/05/14 Losartan/Hydrochlorothiazide [Hyzaar 100-12.5 Tablet] 1 tab PO DAILY 12/05/14 Metoprolol Tartrate [Lopressor (beta monico)] 50 mg PO BID 12/05/14 Potassium Chloride [K-Dur] 10 meq PO BID 12/05/14 Cyanocobalamin [Vitamin B12] 500 mcg PO DAILY@0800 01/27/15 Ergocalciferol [Vitamin D] 50,000 unit PO WE 05/10/16 Omeprazole [Prilosec] 40 mg PO BID 11/09/16 Rosuvastatin Calcium [Crestor] 10 mg PO DAILY 11/09/16 Ferrous Sulfate [Iron] 325 mg PO BID 12/05/18 Multivit-Min/Iron/Folic/Lutein [Centrum Silver Women Tablet] 1 ea PO DAILY 12/06/18 Ascorbic Acid [Vitamin C] 500 mg PO TIDCM 09/24/19 Cefdinir [Omnicef [equiv]] 300 mg PO Q12H #10 cap 09/26/19 Following Prescriptions Were Given to Patient: Cefdinir [Omnicef [equiv]] 300 mg PO Q12H #10 cap Transmission Status: Received by [facility]/pharmacy #[id number] Primary Care Physician: Gretta Burch DO [Primary Care Provider] - Please follow up with your Primary Care Physician in: 3-5 days Disposition: Home Minutes spent on discharge:: 35 Patient Condition:: Stable Medical Necessity - Tobacco Use Smoking Status: Former smoker Tobacco Use: Cigarettes Meaningful Use Info Meaningful Use Diagnoses (Choose all that apply): None applicable Inpatient E&M: [id number] Disch Hosp
--- NOTE | 2019-09-29 15:00 | CASEMGMT ---
ELLIS HOPKINS Discharge Follow-up Phone Call: NAVID: Valeria Strata: 3 Call Date: 09/29/2019 Discharge Date: 09/26/2019 Time of Call: 1500 Admitting Diagnosis: Ecoli UTI Attempted discharge follow-up call to pt. Voicemail received and nondescript message left requesting a return call. Shira Whitfield RN CM
== END 2019-09-26 17:15 | disposition home or self-care (01) | DRG 690 ==
LOC: ED 06:07 → MS3 06:38
PROVIDERS: Hospitalist; Admitting Provider Student in an Organized Health Care Education/Training Program; Emergency Provider Emergency Medicine; PCP Internal Medicine; Visit Provider Family Medicine
DX: N39.0 Urinary tract infection, site not specified (principal); B96.20 Unspecified Escherichia coli [E. coli] as the cause of diseases classified elsewhere; K31.819 Angiodysplasia of stomach and duodenum without bleeding; D50.9 Iron deficiency anemia, unspecified; I10 Essential (primary) hypertension; E78.5 Hyperlipidemia, unspecified; E03.9 Hypothyroidism, unspecified; K21.9 Gastro-esophageal reflux disease without esophagitis; Z79.890 Hormone replacement therapy; Z79.899 Other long term (current) drug therapy; Z86.73 Personal history of transient ischemic attack (TIA), and cerebral infarction without residual deficits; Z87.891 Personal history of nicotine dependence
CPT/HCPCS: 36415; 74174; 74177; 80048; 80053; 81001; 83605; 83690; 83735; 85025; 86850; 86900; 86901; 86920; 86922; 87086; 87088; 87186; 93005; 97802; 99284; J7030; J7040; P9016; Q9967; A4216; J2405

== ENCOUNTER 2019-11-19 11:48 | Emergency (ER) | payer MEDICARE, OTHER, SELFPAY ==
[2019-09-24 07:18] VITALS: BMI 24.1
[2019-11-19 11:49] VITALS: BP 139/68; PULSE 72; RESP 18; TEMP 36.6; O2SAT 100; BMI 22.4
--- NOTE | 2019-11-19 12:11 | RAD_ITS ---
STUDY: X-RAY - PELVIS AND LEFT HIP REASON FOR EXAM: Female, 79 years old. Fall, pain left hip TECHNIQUE: 3 views of the pelvis and hip. COMPARISON: Comparison is made with prior study dated 12/05/2018. FINDINGS: There is a non-specific bowel gas pattern. There are multiple calcified phleboliths. There is narrowing with cortical sclerosis and osteophyte formation of the sacroiliac joint consistent with degenerative osteoarthritic changes. Normal bilateral superior and inferior pubic rami. Normal pubic symphysis. Normal bilateral ischial tuberosities. Normal visualized femoral head. Normal acetabulum. Normal hip joint. Disc space narrowing of the lower lumbar spine. RAD/HIP, UNI W/ Pelvis 2-3 Views IMPRESSION: No acute abnormality is seen. Electronically Signed: Wilberto Lopez, at 13:16 EDT , Service support ,
--- NOTE | 2019-11-19 12:11 | ED.DCSUM_ITS ---
History of Present Illness Chief Complaint: Lower Extremity Injury Informant: Patient, Family Narrative: Patient presents the emergency department with left hip pain. Patient states that her symptoms began 3 to 4 weeks ago after she got a Sandostatin shot from her oncologist office. She tells me she went home that night and started developing pain but the next day was more significant pain. She also mentions that she was trying to move a washing machine in the garage and fell down deepa g on the left hip and buttock. She has had bursitis in the past and got good relief with steroid injections through primary care. She is now using a cane to ambulate due to pain. She notes the pain starts the posterior to the greater trochanter and wraps around to the knee. No paresthesias. No bruising. She denies any low back pain. She denies any symptoms below the knee. - Past Medical History (1) Symptomatic anemia Status: Chronic (2) Cerebrovascular disease Status: Chronic Comment: Remote stroke no residual deficit (3) GERD (gastroesophageal reflux disease) Status: Chronic (4) HLD (hyperlipidemia) Status: Chronic (5) HTN (hypertension) Status: Chronic (6) History of CVA (cerebrovascular accident) Status: Chronic (7) Hypothyroidism Status: Chronic (8) Rheumatic fever without heart involvement Status: Chronic (9) Watermelon stomach Status: Chronic Past Medical History - Allergies and Home Meds Allergies/Adverse Reactions: Allergies erythromycin base [From Staticin] Adverse Reaction (Verified 11/19/19 11:52) muscle pain ok to take crestor ethyl alcohol [From Staticin] Adverse Reaction (Verified 11/19/19 11:52) muscle pain ok to take crestor niacin Adverse Reaction (Verified 11/19/19 11:52) REDNESS/FLUSHING TELEMETRY PADS Allergy (Uncoded 11/19/19 11:52) Rash Primary Care Physician: Shahriar Ortiz DO [STAFF PHYSICIAN] - (call to arrange follow up) Prior records reviewed: Yes Surgical History: noncontributory, tonsillectomy Lives: Spouse/ Significant Other Smoking Status: Former smoker Drugs: None - Family History Sibling Family History: Reports: Dementia Paternal Family History: Reports: Heart Disease Maternal Family History: Reports: Diabetes, Heart Disease, No pertinent history Review of Systems General: Denies: Chills, Fever, Sweats Eyes: Denies: Visual changes - bilaterally, Diplopia ENT: Denies: Rhinorrhea, Sore throat Cardiovascular: Denies: Chest pain, Palpitations Respiratory: Denies: Dyspnea, Cough, Dyspnea on exertion Gastrointestinal: Denies: Abdominal pain, Nausea, Vomiting, Diarrhea, Melena, Hematochezia Genitourinary: Denies: Dysuria, Hematuria, Frequency Musculoskeletal: Reports: Extremity Pain. Denies: Back pain Skin: Denies: Rash, Wounds Neurological: Denies: Headache, Weakness, Numbness Physical Exam Vital Signs/Narrative: Vital Signs Temp Pulse Resp BP Pulse Ox 11/19/19 11:49 97.8 F 72 18 139/68 H 100 Inital Vital Signs reviewed: Yes General: Well nourished, Well developed, No Acute Distress Head: Normocephalic, Atraumatic Eyes: Perrl, EOMI ENT: Moist mucous membranes, No rhinorrhea Neck: Supple, Nontender Cardiovascular: Regular rate, Regular rhythm, No murmurs Respiratory: No distress, CTA bilaterally, Chest nontender Abdomen: Soft, Nontender, Nondistended, Normal bowel sounds Back: Nontender, Normal Inspection Extremities: No edema, - - Patient points to the greater trochanter as the source of the majority of her pain. There is no pain upon palpation of the quadricep or hamstring muscles. She has pain with passive AB and AD duction. n egative logroll. I do not see any bruising or rashes. Neurovascularly she appears intact. She has an antalgic gait. Skin: Normal color, No rash Neurological: Alert, Oriented x3, Cranial nerves II-XII grossly intact, Normal Strength, Normal Sensation Psychological: Normal affect, Normal Mood Diagnostic/Tx/Re-eval Clinical Impression(s) from Imaging Studies Hip/Pelvis X-Ray 11/19/19 12:11 IMPRESSION: No acute abnormality is seen. Electronically Signed: Wilberto Lopez, at 13:16 EDT , Service support , - Medical Decision Making X-rays of the hip and pelvis were negative for fracture. Clinically patient is most tender over the greater trochanter which certainly raises the likelihood of this being a recurrent greater trochanteric bursitis. I do not see any ecchymosis or rashes. I do not palpate any hematomas. Does not appear to be radicular nerve pain. I will give the patient a dose of Kenalog. I would prefer not to give her oral steroids or oral anti-inflammatories given her watermelon stomach. I will write for some pain medication. Patient has seen Dr. Lynch for orthopedics in the past. She would like to see him again. ED Disposition - Plan for ED Patient: Disposition: Home or Assisted Living Diagnosis: Greater trochanteric bursitis of left hip Instructions: ED Bursitis Prescriptions: Oxycodone [Oxyir] 5 mg PO Q6H PRN PRN 3 Days #12 tab PRN Reason: Pain Prescription Printed Referrals: Shahriar Ortiz DO [STAFF PHYSICIAN] - (call to arrange follow up)
[2019-11-19] MEDS: Triamcinolone Acetonide 40 MG/ML Vial 50 MG IM (13:36)
[2019-11-19 14:10] VITALS: BP 130/78; PULSE 78; RESP 16; O2SAT 98
== END 2019-11-19 14:11 | disposition home or self-care (01) ==
PROVIDERS: Emergency Provider Emergency Medicine; PCP Internal Medicine
DX: M70.62 Trochanteric bursitis, left hip (principal); Y93.9 Activity, unspecified; I00 Rheumatic fever without heart involvement; K31.819 Angiodysplasia of stomach and duodenum without bleeding; I10 Essential (primary) hypertension; E78.5 Hyperlipidemia, unspecified; E03.9 Hypothyroidism, unspecified; K21.9 Gastro-esophageal reflux disease without esophagitis; Z86.73 Personal history of transient ischemic attack (TIA), and cerebral infarction without residual deficits; Z79.899 Other long term (current) drug therapy
CPT/HCPCS: 73502; 99283

== ENCOUNTER 2022-08-05 23:27 | Emergency (ER) | payer MEDICARE, OTHER, SELFPAY ==
[2022-08-05 23:28] VITALS: RESP 26; TEMP 35.7; BMI 26.0
[2022-08-05 23:31] VITALS: BP 161/66; PULSE 72; O2SAT 100
[2022-08-05] MEDS: 0.9% Normal Saline 1,000 ML 999 ML IV (23:57)
[2022-08-05] MEDS: Ondansetron 4 MG/2 ML Vial IV (23:57)
[2022-08-06] LABS: Absolute Lymphocyte Count 0.71 X10^3/uL (0.83-4.51); Absolute Neutrophil Count 6.3 X10^3/uL (2.0-7.7); Basophil# 0.04 X10^3/uL; Basophil% 0.5 % (0-1); Eosinophil# 0.12 X10^3/uL; Eosinophils% 1.6 % (0-5); Hematocrit 33.8 % (37-47); Hemoglobin 10.7 g/dL (12.0-15.0); Lymphocyte # 0.71 X10^3/ul (0.83-4.51); Lymphocyte % 9.3 % (19-41); Mean Corp Hgb Conc 31.7 g/dL (32-36); Mean Corpuscular Hgb 29.6 pg (27.0-32.0); Mean Corpuscular Volume 93.6 fL (81-99); Mean Platelet Vol. 10.2 fl (6.2-12.0); Monocyte# 0.48 X10^3/uL; Monocyte% 6.3 % (0-10); NRBC Flagged by Analyzer 0 % (0-5); Neutrophil # 6.26 X10^3/uL (2.7-7.7); Neutrophil % 81.9 % (47-70); Platelet Count 232 K/mm3 (150-450); RBC Distribution Width CV 13.2 % (11.6-14.6); Red Blood Count 3.61 M/mm3 (4.2-5.4); White Blood Count 7.6 K/mm3 (4.4-11.0)
[2022-08-06 00:24] LABS: AST(SGOT) 19 U/L (15-37); Alanine Aminotransfer ALT/SGPT 21 U/L (13-56); Albumin, Serum 3.6 g/dL (3.2-5.0); Alkaline Phosphatase 64 U/L (45-117); Anion Gap 8 (5-15); BUN 16 mg/dL (7-18); BUN/Creat Ratio 17.2 RATIO (10-20); Bilirubin, Direct 0.15 mg/dL (0.00-0.30); Calcium,Total 9.2 mg/dL (8.5-10.1); Chloride 109 mmol/L (98-107); Creatinine, Serum 0.93 mg/dL (0.55-1.02); EST Glomerular Filtration Rate 62 mL/min (>60); Est Glom Filt Rate - Afr Amer 75 mL/min (>60); Estimated Creatinine Clearance 34.66 ml/min; Globulin 2.9 g/dL (2.2-4.2); Glucose 129 mg/dL (74-106); Lipase 35 U/L (13-75); Potassium 3.8 mmol/L (3.5-5.1); Protein, Total 6.5 g/dL (6.4-8.2); Sodium Level 141 mmol/L (136-145)
--- NOTE | 2022-08-06 00:26 | EKG12_ITS ---
Test Reason : CP Blood Pressure : / mmHG Vent. Rate : 085 BPM Atrial Rate : 085 BPM P-R Int : 122 ms QRS Dur : 072 ms QT Int : 402 ms P-R-T Axes : -03 -01 -18 degrees QTc Int : 478 ms Normal sinus rhythm Nonspecific ST and T wave abnormality Abnormal ECG Confirmed by RADHA GROSS, YOAN ([id number]), editor farm journal SORIN CELAYA ([id number]) on 08/07/2022 1:27:09 PM Referred By: ROVERTO Confirmed By:YOAN GARCIA MD
--- NOTE | 2022-08-06 01:17 | EDS_ITS ---
HPI History of Present Illness Chief Complaint: Nausea/Vomiting Narrative Narrative: Patient is 82-year-old female who states 2 to 3 hours prior to arrival she developed generalized abdominal discomfort with bouts of nausea vomiting diarrhea. She denies any known sick contacts or recent travel outside the country or antibiotic use. She states she has been unable to keep food and fluid down and secondary to the symptoms mixed with her abdominal pain she is concern for infectious process and comes in for evaluation. [facility] Medical History (Updated 08/10/22 @ 07:[address] Elroy Kilgore, DO) Former smoker GI bleed Home Medications levothyroxine 25 mcg tablet 25 mcg PO DAILY thyroid 12/05/14 [History Last Taken 09/23/19] losartan 100 mg-hydrochlorothiazide 12.5 mg tablet 1 tab PO DAILY bp 12/05/14 [History Last Taken 09/23/19] metoprolol tartrate 50 mg tablet 50 mg PO BID bp 12/05/14 [History Last Taken 09/23/19] potassium chloride 10 mEq tablet,extended release(part/cryst) 10 meq PO BID supplement 12/05/14 [History Last Taken 09/23/19] cyanocobalamin (vitamin B-12) 500 mcg tablet 500 mcg PO DAILY@0800 supplement 01/27/15 [History Last Taken 09/23/19] omeprazole 40 mg capsule,delayed release 40 mg PO BID stomach 11/09/16 [History Last Taken 09/23/19] rosuvastatin 10 mg tablet 10 mg PO QHS cholestrol 11/09/16 [History Last Taken 09/23/19] ferrous sulfate 325 mg (65 mg iron) tablet 325 mg PO BID anemia 12/05/18 [History Last Taken 09/23/19] multivit with smgcbhyj-shom-FX-lutein 8 mg iron-400 mcg-300 mcg tablet 1 ea PO DAILY supplement 12/06/18 [History Last Taken 09/23/19] ascorbic acid (vitamin C) 500 mg tablet 500 mg PO TIDCM supplement 09/24/19 [History Last Taken 09/23/19] ondansetron 4 mg disintegrating tablet 4 mg PO TID PRN nausea and vomiting #21 tabs 08/06/22 [Rx Last Taken Unknown] Allergy/AdvReac Type Severity Reaction Status Date / Time adhesive Allergy Rash Verified 08/05/22 23:30 erythromycin base AdvReac muscle pain Verified 08/05/22 23:30 [From Staticin] ethyl alcohol [From Staticin] AdvReac muscle pain Verified 08/05/22 23:30 niacin AdvReac REDNESS/FLU Verified 08/05/22 23:30 SHING Social History (Updated 11/26/19 @ 14:[address] Shahriar Ortiz, DO) Smoking Status: Former smoker ROS ROS ED Constitutional Constitutional ED: Denies chills or fever(s) ENT ENT ED: Denies sore throat Cardiovascular Cardiovascular: Denies chest pain Respiratory/Chest Respiratory/Chest: Denies cough or dyspnea Gastrointestinal Gastrointestinal: Reports abdominal pain, diarrhea, nausea and vomiting Genitourinary Genitourinary ED: Denies dysuria or hematuria Musculoskeletal Musculoskeletal: Reports myalgias Integumentary Denies rash Neurologic Neurologic: Denies headache(s) Hematologic/Lymphatic Hematologic/Lymphatic: Denies easy bleeding or easy bruising EXAM Physical Exam Const Vital Signs: 08/05/22 23:28 08/05/22 23:31 Temperature 96.2 F L Temperature Source Temporal Pulse Rate 72 Respiratory Rate 26 H Blood Pressure 161/66 H Blood Pressure Mean 97 Pulse Ox 100 Oxygen Delivery Method Room Air Room Air Positive well nourished and well developed General Appearance ED: well developed HEENT Reports dry mucous membranes HEENT Narrative: Mucous membranes are dry and tacky No airway edema or compromise No signs of infection in the posterior pharynx Mouth ED: Yes dry mucous membranes Mouth: dry mucous membranes Eyes PERRL and EOMs intact bilaterally General Eye ED: Negative for scleral icterus Neck supple Neck Narrative: No nuchal rigidity or meningeal signs present Resp normal respiratory effort and clear to auscultation bilaterally Cardio regular rate and regular rhythm Rate: other Other Details: Radial pulses are plus 2 out of 4 bilaterally are equal and symmetric GI non-distended GI Narrative: Abdomen is soft and nondistended with hyperactive bowel sounds. There is mild diffuse pain on palpation without voluntary guarding or rigidity. No pulsatile mass or fluid wave noted Auscultation: hyperactive bowel sounds Palpation: soft Back/Spine no CVA tenderness Extremity normal to inspection Neuro oriented x3 and CN's II-XII intact bilaterally Sensorium / Orientation: alert Psych mental status grossly normal Skin no rashes or lesions noted Skin Narrative: Skin turgor is increased General Skin Exam: Negative for jaundice MDM MDM MDM Narrative Medical decision making narrative: Patient presented to the ER hypertensive but otherwise with stable vital. She reported sudden onset of abdominal pain with nausea vomiting diarrhea. Differential diagnosis is concerning for viral gastroenteritis versus diverticulitis versus pancreatitis versus biliary colic. Basic work-up was obtained secondary to this. Patient's white count is normal there is no left shift she does not have signs of acute kidney injury and there is no severe electrolyte derangement or elevation to her lipase. After she was treated she had improvement of her abdominal pain and there is no further bouts of nausea or vomiting. As she does not have distention and she has been having bowel movements concern for ileus and obstruction is low as well and I do not feel there is need for a CT scan. On reevaluation the patient's abdomen remains soft and nonsurgical and therefore with negative work-up and improvement of symptoms she can be given symptomatic medication and discharged home. She does have findings concerning for dehydration on exam but as she does not have acute kidney injury there is no need for admission for this either. History & Record Review Discussion w/independent historian: Patient and Significant other Lab Data Attestation: I reviewed the patient's lab results. Labs: Laboratory Results - last 24 hr 08/05/22 08/05/22 23:50 23:50 WBC 7.6 RBC 3.61 L Hgb 10.7 L Hct 33.8 L MCV 93.6 MCH 29.6 MCHC 31.7 L RDW Std Deviation 45.0 H RDW Coeff of Jeferson 13.2 Plt Count 232 MPV 10.2 Immature Gran % (Auto) 0.400 Neut % (Auto) 81.9 H Lymph % (Auto) 9.3 L Bennett % (Auto) 6.3 Eos % (Auto) 1.6 Baso % (Auto) 0.5 Absolute Neuts (auto) 6.3 Absolute Lymphs (auto) 0.71 L Nucleated RBC % 0 Sodium 141 Potassium 3.8 Chloride 109 H Carbon Dioxide 24.0 Anion Gap 8 BUN 16 Creatinine 0.93 Estim Creat Clear Calc 34.66 Est GFR (MDRD) Af Amer 75 Est GFR (MDRD) Non-Af 62 BUN/Creatinine Ratio 17.2 Glucose 129 H Calcium 9.2 Total Bilirubin 0.40 Direct Bilirubin 0.15 AST 19 ALT 21 Alkaline Phosphatase 64 Total Protein 6.5 Albumin 3.6 Globulin 2.9 Lipase 35 Discharge Plan Triage Chief Complaint: Nausea/Vomiting ED Provider: Elroy Kilgore Dx/Rx/DC Orders Clinical Impression: Nausea & vomiting, Diarrhea, Mild dehydration, HTN (hypertension) Instructions: ED Gastroenteritis, Viral (Adult) Prescriptions: New ondansetron 4 mg tablet,disintegrating 4 mg PO TID PRN (Reason: nausea and vomiting) Qty: 21 0RF No Action levothyroxine 25 MCG tablet 25 mcg PO DAILY Label Comments: HYPOTHYROIDISM metoprolol tartrate 50 MG tablet 50 mg PO BID Label Comments: HYPERTENSION potassium chloride 10 MEQ tablet 10 meq PO BID Label Comments: SUPPLEMENT losartan-hydrochlorothiazide 1 TAB tablet 1 tab PO DAILY Label Comments: HYPERTENSION cyanocobalamin (vitamin B-12) 500 MCG tablet 500 mcg PO DAILY@0800 Label Comments: SUPPLEMENT omeprazole 40 MG capsule 40 mg PO BID Label Comments: acid reflux rosuvastatin 10 MG tablet 10 mg PO QHS ferrous sulfate 325 MG tablet 325 mg PO BID kbrjvhqy-zbf-lbhw-FA-lutein 1 EACH tablet 1 ea PO DAILY ascorbic acid (vitamin C) 500 MG tablet 500 mg PO TIDCM Label Comments: VITAMIN Rx Instructions: take with oral iron Primary Care Provider: Gretta Burch Referrals: Gretta Burch, [Primary Care Provider] - Activity Restrictions/Additional Instructions: Your exam and work-up indicate you have a viral stomach infection which will last on average 3 days. Keep yourself well-hydrated and use the Zofran as directed control any further bouts of nausea or vomiting. If you have worsening symptoms or any further concerns please return to the ER for repeat evaluation Disposition Disposition: Home, Self Care Discharge Date/Time: 08/06/22 01:41
== END 2022-08-06 01:41 | disposition home or self-care (01) ==
PROVIDERS: Emergency Provider Emergency Medicine; PCP Internal Medicine; Visit Provider Emergency Medicine
DX: R11.2 Nausea with vomiting, unspecified (principal); E86.0 Dehydration; R19.7 Diarrhea, unspecified; R10.9 Unspecified abdominal pain; Z87.891 Personal history of nicotine dependence
CPT/HCPCS: 80048; 80076; 83690; 85025; 93005; 96361; 96374; 99285; J7030; J2405

== ENCOUNTER 2024-04-23 12:34 | Inpatient (IN) | payer MEDICARE, OTHER, SELFPAY ==
[2024-04-23] VITALS (10 sets, daily range): BP systolic 111–146; BP diastolic 50–117; PULSE 71–117; RESP 16–22; TEMP 35.9–37; O2SAT 87–100; BMI 21.2; BMI 21.0
--- NOTE | 2024-04-23 14:57 | EKG12_ITS ---
Test Reason : Blood Pressure : */* mmHG Vent. Rate : 77 BPM Atrial Rate : 77 BPM P-R Int : 144 ms QRS Dur : 68 ms QT Int : 430 ms P-R-T Axes : * 183 183 degrees QTcB Int : 486 ms Sinus rhythm with Premature atrial complexes suspect LIMB LEAD REVERSAL NORMAL ECG Reconfirmed by Kyle Yarbrough ([id number]), mapping editor LIZZIE ROGER ([id number]) on 04/24/2024 12:39:45 PM Referred By: ET Confirmed By: Kyle Yarbrough
--- NOTE | 2024-04-23 15:09 | EX.ED.DYSGE1 ---
HPI History of Present Illness Chief Complaint: General Illness Narrative Narrative: Chief complaint and HPI: General malaise and weakness. 84-year-old female with past medical history of HLD, CVA, HTN, HLD presents for evaluation of general malaise and weakness. Onset of symptoms 3 days ago. Patient endorses body aches, cough, weakness, decreased appetite. She denies any fever, chills, shortness of breath, chest pain, abdominal pain, nausea, vomiting, dysuria. Patient denies any sick contacts. Patient ambulates around the house with a walker. Review of systems: See HPI Medications: As listed on the chart Allergies: As listed on the chart PFSH: Per chart Vital signs: As listed on the chart. Reviewed. Physical exam: Gen: A&O x3, NAD Head: Normocephalic, atraumatic Eyes: No sclera icterus, conjunctiva clear ENT: Mildly dry mucous membranes Neck: Trachea midline, No JVD CV: RRR, no murmurs, no peripheral edema Resp: Lungs CTA BL, no w/r/c, + dry cough GI: Abd soft, non-distended, non-tender, no r/r/g Musc: Full ROM, no deformity, generalized weakness Skin: Warm, dry Neuro: Alert, oriented, grossly intact, sensation intact Psych: Cooperative, appropriate mood and affect PFSH PFSH Medical History Stroke/cerebrovascular accident Murmur GI bleed Former smoker Home Medications ?Medication ?Instructions ?Recorded ?Last Taken ?Type levothyroxine 25 mcg tablet 25 mcg PO DAILY thyroid 12/05/14 09/23/19 History losartan 100 1 tab PO DAILY bp 12/05/14 09/23/19 History mg-hydrochlorothiazide 12.5 mg tablet metoprolol tartrate 50 mg tablet 50 mg PO BID bp 12/05/14 09/23/19 History potassium chloride 10 mEq 10 meq PO BID supplement 12/05/14 09/23/19 History tablet,extended release(part/cryst) cyanocobalamin (vitamin B-12) 500 500 mcg PO DAILY@0800 supplement 01/27/15 09/23/19 History mcg tablet omeprazole 40 mg capsule,delayed 40 mg PO BID stomach 11/09/16 09/23/19 History release rosuvastatin 10 mg tablet 10 mg PO QHS cholestrol 11/09/16 09/23/19 History ferrous sulfate 325 mg (65 mg 325 mg PO BID anemia 12/05/18 09/23/19 History iron) tablet fuxqcfks-xueb-fyyl 8 mg-folic 400 1 ea PO DAILY supplement 12/06/18 09/23/19 History mcg-K 50 mcg-lutein 300 mcg tablet ascorbic acid (vitamin C) 500 mg 500 mg PO TIDCM supplement 09/24/19 09/23/19 History tablet ondansetron 4 mg disintegrating 4 mg PO TID PRN nausea and 08/06/22 Unknown Rx tablet vomiting #21 tabs Allergy/AdvReac Type Severity Reaction Status Date / Time adhesive Allergy Rash Verified 04/23/24 12:37 erythromycin base (From AdvReac muscle pain Verified 04/23/24 12:37 Staticin) ethyl alcohol (From Staticin) AdvReac muscle pain Verified 04/23/24 12:37 niacin AdvReac REDNESS/FLU Verified 04/23/24 12:37 SHING Social History Smoking Status: Former smoker EXAM Physical Exam Const Vital Signs: 04/23/24 12:34 04/23/24 14:30 04/23/24 15:00 Temperature 96.7 F L 98.4 F 97.9 F Temperature Source Temporal Oral Temporal Pulse Rate 80 71 117 H Respiratory Rate 20 H 18 22 H Blood Pressure 111/66 146/96 H 141/117 H Blood Pressure Mean 81 112 125 Pulse Ox 98 95 98 Oxygen Delivery Method Room Air Room Air Room Air Oxygen Flow Rate (L/min) 04/23/24 16:00 04/23/24 16:34 04/23/24 16:34 Temperature 98.4 F Temperature Source Temporal Pulse Rate 110 H Respiratory Rate 16 Blood Pressure 136/55 H Blood Pressure Mean 82 Pulse Ox 91 87 91 Oxygen Delivery Method Room Air Room Air Nasal Cannula Oxygen Flow Rate (L/min) 2 04/23/24 17:32 Temperature 98.6 F Temperature Source Oral Pulse Rate 91 Respiratory Rate 18 Blood Pressure 131/56 H Blood Pressure Mean 81 Pulse Ox 100 Oxygen Delivery Method Room Air Oxygen Flow Rate (L/min) MDM MDM MDM Narrative Medical decision making narrative: 84-year-old female with past medical history of HLD, CVA, HTN, HLD presents for evaluation of general malaise and weakness. Differential diagnosis includes but is not limited to viral illness, influenza, COVID, pneumonia, electrolyte abnormality, UTI, ACS. Per protocol orders in triage, patient had viral testing and is positive for COVID-19. She is not hypoxic on room air therefore no need for steroids at this time. However given her age, multiple comorbidities, and generalized weakness further workup was ordered with labs and imaging. NS bolus ordered. EKG and chest x-ray reviewed see below. CBC with leukocytopenia of 2.6. Patient has baseline anemia. BMP without significant electrolyte abnormality or JAZMINE. Magnesium level unremarkable. Troponin unremarkable. UA positive for UTI. Rocephin ordered and urine culture obtained. Patient became hypoxic in our emergency department and requiring 2 L nasal cannula. Patient given Decadron given that she now has hypoxia with COVID-19 infection. Patient will warrant admission to the hospital. Patient and family updated of all results and the plan. They confirmed understanding. Patient was discussed with hospitalist service. EKG: Interpreted by me/EM physician: EKG shows sinus arrhythmia with PACs. She has nonspecific T wave abnormalities however there is a lot of artifact on the EKG. Heart rate is 77. Diagnostic: Interpreted by me/EM physician: Chest x-ray no pneumonia, effusion, cardiomegaly, pneumothorax Impression: 1. Acute hypoxia secondary to COVID-19 infection 2. UTI Lab Data Labs: Laboratory Results - last 24 hr 04/23/24 04/23/24 04/23/24 15:15 15:47 17:35 WBC 2.6 L RBC 3.13 L Hgb 9.2 L Hct 28.4 L MCV 90.7 MCH 29.4 MCHC 32.4 RDW Std Deviation 41.6 RDW Coeff of Jeferson 12.6 Plt Count 188 MPV 10.6 Sodium 143 Potassium 3.4 Chloride Direct 108 Carbon Dioxide 20.8 L Anion Gap 14 BUN 21 H Creatinine 0.8 Est GFR (MDRD) Non-Af 73 BUN/Creatinine Ratio 25.7 H Glucose 93 Calcium 9.1 Magnesium 2.1 Troponin T High Sens 13 Troponin T Hi Sens 2 Hr 14 Troponin T Hi Sens 2Hr Delta 1 Urine Color Yellow Urine Clarity Sl. Cloudy Urine pH 6.0 Ur Specific Shields 1.015 Urine Protein 30 H Urine Glucose (UA) Normal Urine Ketones 50 H Urine Occult Blood 25 H Urine Nitrite Positive H Urine Bilirubin Negative Urine Urobilinogen Normal Ur Leukocyte Esterase 500 H Urine RBC 5-10 SEEN Urine WBC 50-100 SEEN Ur Squamous Epith Cells 0-5 SEEN Urine Bacteria 2+ Urine Mucus 0 SEEN Radiography Diagnostic Testing: Clinical Impression(s) from Imaging Studies Chest X-Ray 04/23/24 15:30 IMPRESSION: Prominence of the pulmonary interstitial markings. Can not exclude viral inflammation. Reading Location: [place] [id number] Discharge Plan Disposition Disposition: Acute Care Hospital [facility] Discharge Date/Time: 04/23/24 20:04
[2024-04-23 15:27] LABS: Hematocrit 28.4 % (37-47); Hemoglobin 9.2 g/dL (12.0-15.0); Mean Corp Hgb Conc 32.4 g/dL (32-36); Mean Corpuscular Hgb 29.4 pg (27.0-32.0); Mean Corpuscular Volume 90.7 fL (81-99); Mean Platelet Vol. 10.6 fl (6.2-12.0); Platelet Count 188 K/mm3 (150-450); RBC Distribution Width CV 12.6 % (11.6-14.6); RBC Distribution Width SD 41.6 fl (35.1-43.9); Red Blood Count 3.13 M/mm3 (4.2-5.4); White Blood Count 2.6 K/mm3 (4.4-11.0)
--- NOTE | 2024-04-23 15:30 | RAD_ITS ---
PROCEDURE: CHEST PA AND LATERAL REASON FOR EXAM: General illness for 3 days. Weakness. Positive COVID TECHNIQUE: Frontal and lateral views of the chest. COMPARISON: None. FINDINGS: Lungs: Mild prominence of the pulmonary interstitial markings. Pleura: No pleural effusions, thickening, or pneumothorax. Heart: Normal in size and configuration. Mediastinum/Arianne: Unremarkable. Great vessels: Aorta is atherosclerotic and tortuous Bones/soft tissues: Unremarkable. RAD/Chest PA and Lateral IMPRESSION: Prominence of the pulmonary interstitial markings. Can not exclude viral infla mmation. Reading Location: [place] [id number]
[2024-04-23] MEDS: 0.9% Normal Saline (1000mL) 1,000 ML 1000 ML IV (15:46)
[2024-04-23 15:56] LABS: Anion Gap 14 (5-15); BUN 21 mg/dL (4-19); BUN/Creat Ratio 25.7 RATIO (10-20); Calcium 9.1 mg/dL (7.6-11.0); Carbon Dioxide 20.8 mmol/L (22.0-29.0); Chloride 108 mmol/L (96-108); Creatinine, Serum 0.8 mg/dL (0.6-1.0); EST Glomerular Filtration Rate 73 (>60); Glucose 93 mg/dL (70-99); Magnesium 2.1 mg/dL (1.5-2.2); Potassium 3.4 mmol/L (3.3-5.1); Sodium Level 143 mmol/L (133-145)
[2024-04-23 15:58] LABS: Mucous, Urine 0 SEEN /hpf (<or=2+)
[2024-04-23 16:01] LABS: Color, Urine Yellow (Yellow); Glucose, Dipstick Normal (Normal); Ketone-Dipstick 50 mg/dl (Negative); Leukocyte Esterase-Dipstick 500 /ul (Negative); Nitrite-Dipstick Positive (Negative); Occult Blood-Urine 25 /ul (Negative); Protein-Dipstick 30 mg/dl (Negative); Specific Gravity, Urine 1.015 (1.002-1.030); Urine Bilirubin Dipstick Negative (Negative); Urine Clarity Sl. Cloudy (Clear); Urine Urobilinogen Normal (Normal)
[2024-04-23 16:12] LABS: Troponin T High Sensitivity 13 ng/L (<=14)
[2024-04-23 16:20] LABS: Bacteria 2+ /hpf (None Seen); Red Blood Cells-Urine 5-10 SEEN /hpf (0-5); Squamous Epithelial Cells - UA 0-5 SEEN /hpf (5-10); White Blood Cells 50-100 SEEN /hpf (0-5)
[2024-04-23] MEDS: Ceftriaxone 1 GM/50 ML BAG IV (17:31)
[2024-04-23] MEDS: dexAMETHasone 10 MG/ML Vial 6 MG IV (17:31)
--- NOTE | 2024-04-23 17:46 | PCM.HP.STD ---
HPI - General General Date of Service: 04/23/24 Chief Complaint: Malaise HPI Narrative IMANI JEFFRIES, is a 84 F who presents with to 3 days of generalized weakness. Patient just feels very sick overall. States that she is never felt this sick before. Resent to the emergency room where she was noted to be positive for COVID-19. Chest x-ray showed some groundglass of capacities. Urinalysis also positive for urinary tract infection. In emergency room, patient did receive some IV fluids, ceftriaxone and dexamethasone. Patient initially was not on oxygen when she presented but then became hypoxic to the 80s at present and was subsequently placed on oxygen. Patient be admitted for the UTI and COVID. Patient states that she has been recently vaccinated for influenza but did not receive her COVID vaccine this year but has had her COVID-vaccine and boosters in years prior. She states that she has never had COVID-19 before. [facility] Medical History GI bleed Former smoker Home Medications ?Medication ?Instructions ?Recorded ?Last Taken ?Type levothyroxine 25 mcg tablet 25 mcg PO DAILY thyroid 12/05/14 09/23/19 History losartan 100 1 tab PO DAILY bp 12/05/14 09/23/19 History mg-hydrochlorothiazide 12.5 mg tablet metoprolol tartrate 50 mg tablet 50 mg PO BID bp 12/05/14 09/23/19 History potassium chloride 10 mEq 10 meq PO BID supplement 12/05/14 09/23/19 History tablet,extended release(part/cryst) cyanocobalamin (vitamin B-12) 500 500 mcg PO DAILY@0800 supplement 01/27/15 09/23/19 History mcg tablet omeprazole 40 mg capsule,delayed 40 mg PO BID stomach 11/09/16 09/23/19 History release rosuvastatin 10 mg tablet 10 mg PO QHS cholestrol 11/09/16 09/23/19 History ferrous sulfate 325 mg (65 mg 325 mg PO BID anemia 12/05/18 09/23/19 History iron) tablet obvtuciz-omeu-vonw 8 mg-folic 400 1 ea PO DAILY supplement 12/06/18 09/23/19 History mcg-K 50 mcg-lutein 300 mcg tablet ascorbic acid (vitamin C) 500 mg 500 mg PO TIDCM supplement 09/24/19 09/23/19 History tablet ondansetron 4 mg disintegrating 4 mg PO TID PRN nausea and 08/06/22 Unknown Rx tablet vomiting #21 tabs Allergy/AdvReac Type Severity Reaction Status Date / Time adhesive Allergy Rash Verified 04/23/24 12:37 erythromycin base (From AdvReac muscle pain Verified 04/23/24 12:37 Staticin) ethyl alcohol (From Staticin) AdvReac muscle pain Verified 04/23/24 12:37 niacin AdvReac REDNESS/FLU Verified 04/23/24 12:37 SHING Social History Smoking Status: Former smoker ROS ROS Narrative Short of breath. Cough. Fever and chills. All review of systems were negative except as mentioned above in the history of present illness and the other review of systems. Vital Signs Vital Signs Vital Signs: 04/23/24 12:34 04/23/24 14:30 04/23/24 15:00 Temperature 35.9 C L 36.9 C 36.6 C Temperature Source Temporal Oral Temporal Pulse Rate 80 71 117 H Respiratory Rate 20 H 18 22 H Blood Pressure 111/66 146/96 H 141/117 H Blood Pressure Mean 81 112 125 Pulse Ox 98 95 98 Oxygen Delivery Method Room Air Room Air Room Air Oxygen Flow Rate (L/min) 04/23/24 16:00 04/23/24 16:34 04/23/24 16:34 Temperature 36.9 C Temperature Source Temporal Pulse Rate 110 H Respiratory Rate 16 Blood Pressure 136/55 H Blood Pressure Mean 82 Pulse Ox 91 87 91 Oxygen Delivery Method Room Air Room Air Nasal Cannula Oxygen Flow Rate (L/min) 2 04/23/24 17:32 Temperature 37.0 C Temperature Source Oral Pulse Rate 91 Respiratory Rate 18 Blood Pressure 131/56 H Blood Pressure Mean 81 Pulse Ox 100 Oxygen Delivery Method Room Air Oxygen Flow Rate (L/min) Physical Exam Const alert and no apparent distress Constitutional Narrative: Hard of hearing. On oxygen. No respiratory distress. No conversational dyspnea. HEENT normocephalic and hearing grossly normal bilaterally Resp normal respiratory effort, no retractions, no use of accessory muscles and clear to auscultation bilaterally Cardio regular rate, regular rhythm, S1 normal heart sound and S2 normal heart sound GI normal to inspection, nondistended, normoactive bowel sounds, soft to palpation, non-tender and non-distended Extremity normal to inspection and full ROM Neuro Sensorium / Orientation: awake and alert Results Lab / Micro Data 04/23/24 15:15 04/23/24 15:15 Labs: Laboratory Results - last 24 hr 04/23/24 15:15: WBC 2.6 L, RBC 3.13 L, Hgb 9.2 L, Hct 28.4 L, MCV 90.7, MCH 29.4, MCHC 32.4, RDW Std Deviation 41.6, RDW Coeff of Jeferson 12.6, Plt Count 188, MPV 10.6, Sodium 143, Potassium 3.4, Chloride Direct 108, Carbon Dioxide 20.8 L, Anion Gap 14, BUN 21 H, Creatinine 0.8, Est GFR (MDRD) Non-Af 73, BUN/Creatinine Ratio 25.7 H, Glucose 93, Calcium 9.1, Magnesium 2.1, Troponin T High Sens 13 04/23/24 15:47: Urine Color Yellow, Urine Clarity Sl. Cloudy, Urine pH 6.0, Ur Specific [place] 1.015, Urine Protein 30 H, Urine Glucose (UA) Normal, Urine Ketones 50 H, Urine Occult Blood 25 H, Urine Nitrite Positive H, Urine Bilirubin Negative, Urine Urobilinogen Normal, Ur Leukocyte Esterase 500 H, Urine RBC 5-10 SEEN, Urine WBC 50-100 SEEN, Ur Squamous Epith Cells 0-5 SEEN, Urine Bacteria 2+, Urine Mucus 0 SEEN Micro: Microbiology 04/23/24 13:17 Mucosa - Nose SARS-CoV-2, Influenza & RSV (PCR) - Final SARS-CoV-2 (COVID 19 PCR) Imaging Radiology Impression Chest X-Ray 04/23/24 15:30 IMPRESSION: Prominence of the pulmonary interstitial markings. Can not exclude viral inflammation. Reading Location: [facility] Assessment & Plan Assessment/Plan (1) COVID-19: PLAN: Symptoms again about 3 days prior to presentation. Patient received dexamethasone in the emergency room. Will continue with that on the floor. Additionally will start her on remdesivir. Wean oxygen as tolerated. Chest x-ray seems to show some groundglass changes most likely related with COVID-19. (2) UTI (urinary tract infection): PLAN: Abnormal urinalysis with 50-100 white blood cells. Concern for underlying infection from urinary source as well as COVID. Patient received ceftriaxone in the emergency room and will continue on the floor. Follow-up on urine culture. (3) Debility: PLAN: Secondary to the underlying infections. PT OT evaluate and treat. PLAN: Plan Chronic conditions: Hypothyroidism: Continue levothyroxine Hypertension: Continue with her home medications once those are reconciled properly. VTE prophylaxis with enoxaparin CODE STATUS: Addressed with the patient and her . Patient wishes to be full code. Charges/Coding Visit Charges Inpatient E&M: 43826 Init Hosp L2
[2024-04-23 18:27] LABS: TROPONIN VARIANCE 2 HR 1; Troponin T High Sens 2 HR 14 ng/L (<=14)
[2024-04-23] MEDS: Ondansetron 4 MG/2 ML Vial IV (18:33)
[2024-04-23] MEDS: Metoprolol Tartrate 50 MG Tablet PO (21:54)
[2024-04-23] MEDS: Pantoprazole Sodium 40 MG Tablet PO (21:55)
[2024-04-23] MEDS: 0.9% Saline Lock 10 ML Syringe IV (21:56)
[2024-04-23] MEDS: Remdesivir 200 MG in 0.9% Normal Saline (250mL Bag) 210 ML 250 MG IV (21:56)
[2024-04-24] VITALS (8 sets, daily range): BP systolic 116–140; BP diastolic 60–72; PULSE 17–92; RESP 17–18; TEMP 36.3–37; O2SAT 99–100
[2024-04-24 03:24] LABS: Alkaline Phosphatase 54 U/L (35-104)
[2024-04-24 05:12] LABS: Absolute Lymphocyte Count 0.29 X10^3/uL (0.83-4.51); Absolute Neutrophil Count 3.6 X10^3/uL (2.0-7.7); Hematocrit 25.4 % (37-47); Hemoglobin 8.3 g/dL (12.0-15.0); Lymphocyte # 0.29 X10^3/ul (0.83-4.51); Lymphocyte % 7.3 % (19-41); Mean Corp Hgb Conc 32.7 g/dL (32-36); Mean Corpuscular Hgb 29.7 pg (27.0-32.0); Mean Platelet Vol. 10.7 fl (6.2-12.0); Monocyte# 0.04 X10^3/uL; NRBC Flagged by Analyzer 0 % (0-5); Neutrophil # 3.64 X10^3/uL (2.7-7.7); Neutrophil % 91.4 % (47-70); POSITIVE DIFFERENTIAL YES; POSITIVE MORPHOLOGY YES; Platelet Count 177 K/mm3 (150-450); RBC Distribution Width CV 12.6 % (11.6-14.6); RBC Distribution Width SD 41.9 fl (35.1-43.9); Red Blood Count 2.79 M/mm3 (4.2-5.4)
[2024-04-24 05:21] LABS: Differential Indicated SCAN CRITERIA MET
[2024-04-24] MEDS: Levothyroxine 25 MCG TABLET PO (05:31)
[2024-04-24 06:42] LABS: ALB/GLOB Ratio 1.9 RATIO (0.9-2.4); AST(SGOT) 22 U/L (<=31); Alanine Aminotransfer ALT/SGPT 15 U/L (<=34); Albumin, Serum 3.6 g/dL (3.4-4.8); Alkaline Phosphatase 45 U/L (35-104); Anion Gap 12 (5-15); BUN 17 mg/dL (4-19); BUN/Creat Ratio 24.9 RATIO (10-20); Calcium 8.4 mg/dL (7.6-11.0); Chloride 112 mmol/L (96-108); Creatinine, Serum 0.7 mg/dL (0.6-1.0); EST Glomerular Filtration Rate 87 (>60); Estimated Creatinine Clearance 42.88 ml/min; Globulin 1.9 g/dL (2.2-4.2); Glucose 143 mg/dL (70-99); Potassium 3.7 mmol/L (3.3-5.1); Protein, Total 5.5 g/dL (5.9-8.4); Sodium Level 142 mmol/L (133-145); Total Bilirubin 0.17 mg/dL (0.00-1.30)
--- NOTE | 2024-04-24 08:28 | PCM.PN.HOSP ---
Reason for Visit Reason for Visit: Malaise Subjective Subjective Patient states she is feeling much better than yesterday. Anxious to go home tomorrow. Very hard of hearing. at bedside. Objective Data Objective Data Vital Signs: Vital Signs Temp Pulse Resp BP Pulse Ox O2 Del Method O2 Flow Rate 97.7 F L 80 18 131/64 H 100 Nasal Cannula 2 04/24/24 03:00 04/24/24 03:00 04/24/24 03:00 04/24/24 03:00 04/24/24 03:00 04/24/24 03:00 04/24/24 03:00 Oxygen Flow Rate (L/min) 2 Oxygen Delivery Method Nasal Cannula Weight: 52.3 kg Body Mass Index (BMI) 21.0 Intake & Output: Intake and Output for Last 24 Hours 04/22/24 04/23/24 04/24/24 23:59 23:59 23:59 Intake Total 1300 / 1300 50 / 50 Balance 1300 / 1300 50 / 50 Lab / Micro Data 04/24/24 04:58 04/24/24 04:58 Labs: Laboratory Results - last 24 hr 04/23/24 15:15: WBC 2.6 L, RBC 3.13 L, Hgb 9.2 L, Hct 28.4 L, MCV 90.7, MCH 29.4, MCHC 32.4, RDW Std Deviation 41.6, RDW Coeff of Jeferson 12.6, Plt Count 188, MPV 10.6, Sodium 143, Potassium 3.4, Chloride Direct 108, Carbon Dioxide 20.8 L, Anion Gap 14, BUN 21 H, Creatinine 0.8, Est GFR (MDRD) Non-Af 73, BUN/Creatinine Ratio 25.7 H, Glucose 93, Calcium 9.1, Magnesium 2.1, Troponin T High Sens 13 04/23/24 15:47: Urine Color Yellow, Urine Clarity Sl. Cloudy, Urine pH 6.0, Ur Specific [place] 1.015, Urine Protein 30 H, Urine Glucose (UA) Normal, Urine Ketones 50 H, Urine Occult Blood 25 H, Urine Nitrite Positive H, Urine Bilirubin Negative, Urine Urobilinogen Normal, Ur Leukocyte Esterase 500 H, Urine RBC 5-10 SEEN, Urine WBC 50-100 SEEN, Ur Squamous Epith Cells 0-5 SEEN, Urine Bacteria 2+, Urine Mucus 0 SEEN 04/23/24 17:35: Alkaline Phosphatase 54, Troponin T Hi Sens 2 Hr 14, Troponin T Hi Sens 2Hr Delta 1 04/24/24 04:58: WBC 4.0 L, RBC 2.79 L, Hgb 8.3 L, Hct 25.4 L, MCV 91.0, MCH 29.7, MCHC 32.7, RDW Std Deviation 41.9, RDW Coeff of Jeferson 12.6, Plt Count 177, MPV 10.7, Immature Gran % (Auto) 0.300, Neut % (Auto) 91.4 H, Lymph % (Auto) 7.3 L, [place] % (Auto) 1.0, Eos % (Auto) 0.0, Baso % (Auto) 0.0, Absolute Neuts (auto) 3.6, Absolute Lymphs (auto) 0.29 L, Nucleated RBC % 0, Sodium 142, Potassium 3.7, Chloride Direct 112 H, Carbon Dioxide 18.0 L, Anion Gap 12, BUN 17, Creatinine 0.7, Estim Creat Clear Calc 42.88, Est GFR (MDRD) Non-Af 87, BUN/Creatinine Ratio 24.9 H, Glucose 143 H, Calcium 8.4, Total Bilirubin 0.17, AST 22, ALT 15, Alkaline Phosphatase 45, Total Protein 5.5 L, Albumin 3.6, Globulin 1.9 L, Albumin/Globulin Ratio 1.9 Micro: Microbiology 04/23/24 13:17 Mucosa - Nose SARS-CoV-2, Influenza & RSV (PCR) - Final SARS-CoV-2 (COVID 19 PCR) Radiography Diagnostic Testing: Radiology Impression Chest X-Ray 04/23/24 15:30 IMPRESSION: Prominence of the pulmonary interstitial markings. Can not exclude viral inflammation. Reading Location: [place] [id number] Physical Exam Const alert, oriented x3, no apparent distress, average body habitus and well nourished Constitutional Narrative: Elderly, white female, sitting up in a chair at the bedside, reclining, appears comfortable, nontoxic, at bedside, patient appears stable on 1 to 2 L nasal cannula HEENT head/scalp atraumatic and moist oral mucous membranes HEENT Narrative: Markedly hard of hearing, at bedside, Mallampati is 2, no thrush Head and Scalp: normocephalic Resp normal respiratory effort, no retractions, no use of accessory muscles and clear to auscultation bilaterally Auscultation: Negative for rales, rhonchi or wheezes Cardio regular rate, regular rhythm, S1 normal heart sound, S2 normal heart sound, no murmurs, no rub, no gallops and no clicks GI normal to inspection, nondistended, normoactive bowel sounds, soft to palpation and non-tender Extremity no clubbing, cyanosis or edema Extremity Narrative: 2+ radial and pedal pulses Neuro oriented x3, moves all extremities and no focal motor deficits Speech: speech normal Psych affect normal Psych Narrative: Very pleasant, interacts appropriately Assessment & Plan Assessment/Plan (1) UTI (urinary tract infection): (2) Debility: (3) COVID-19: PLAN: Plan Acute COVID-19 infection -3 days out from symptom onset -Continue Decadron day 2 of 10 -Continue remdesivir day 2 of 5 -Lasix 40 mg IV push x 1 dose -Currently on 2 L nasal cannula -Wean as able -Will check ambulatory pulse ox tomorrow Abnormal UA -Consistent with urinary tract infection -Cultures pending -Continue ceftriaxone Generalized weakness/debility/malaise -Likely related to the above -PT/OT consultation -Case management/social work consultation for assistance with discharge planning Hyperlipidemia/essential hypertension -Restart home statin -Continue home metoprolol -Is also noted to be on losartan HCTZ but not verified GERD/history of GI bleed -Continue home PPI Hypothyroidism -Continue home levothyroxine Chronic anemia -Recent baseline unclear -Continue home iron supplementation DVT prophylaxis -Lovenox 40 mg Code Status -Full Code Charges/Coding Visit Charges Inpatient E&M: 42304 Subs Hosp L2
[2024-04-24] MEDS: dexAMETHasone 4 MG Tablet 6 MG PO (08:54)
[2024-04-24] MEDS: Metoprolol Tartrate 50 MG Tablet PO ×2 (08:54→21:21)
[2024-04-24] MEDS: Acetaminophen 325 MG Tablet 650 MG PO ×2 (08:54→21:20)
[2024-04-24] MEDS: Pantoprazole Sodium 40 MG Tablet PO ×2 (08:56→21:21)
[2024-04-24] MEDS: Ceftriaxone 1 GM/50 ML BAG IV (08:57)
[2024-04-24] MEDS: Furosemide 40 MG/4 ML Vial IV ×2 (10:55→21:36)
[2024-04-24] MEDS: Ferrous Sulfate 325 MG Tablet PO ×2 (12:08→17:04)
--- NOTE | 2024-04-24 16:10 | CASEMGMT ---
ELLIS HOPKINS Assessment: Face to Face with pt for initial transition planning/care coordination assessment. ELLIS HOPKINS introduced self and role at [facility], pt voices understanding and consents to assessment. Pt is A&O x4 and answers all questions appropriately at this time. Pt sitting up in chair with oxygen on in no distress and at bedside. Care providers, pharmacy, and demographics verified/updated. Admitting Dx: COVID, UTI PCP:Marcin Specialists:Chyna at [facility]: [facility] Insurance: MCR, [employer] Prescription Benefit: yes LNOK: Dylan Worthy, Living Arrangements: Pt lives with in a single story home with 4 steps to enter. Pt reports her assists her with bathing and dressing as well as laundry, meals and groceries. She states they do everything together. Pt denies concerns at home. Transportation: Pt has not been driving lately. Pt provides transportation. DME:lift chair, rollator, FWW HHC/SNF: Denies hx of Pt states no concerns with going home at time of dc. Pt will continue to assist. Discussed home oxygen should pt qualify at dc. Provided pt with a verbal local in network list of DME providers, pt chose [employer]. No PT recommended. Pt states no further concerns/needs. CM to follow. Advised pt to ask CM if any further questions/concerns/needs arise, voices understanding. Pt Goal: Home with assist Plan: Home, follow for oxygen needs Dary CORRAL CM
[2024-04-24] MEDS: Atorvastatin Calcium 20 MG Tablet PO (21:20)
[2024-04-24] MEDS: Enoxaparin 40 MG/0.4 ML Syringe SC (21:21)
[2024-04-24] MEDS: Remdesivir 100 MG in 0.9% Normal Saline (250mL Bag) 230 ML 250 MG IV (21:36)
[2024-04-24] MEDS: 0.9% Saline Lock 10 ML Syringe IV (21:36)
[2024-04-25] VITALS (8 sets, daily range): BP systolic 128–134; BP diastolic 48–52; PULSE 64–71; RESP 16–18; TEMP 36.4–36.7; O2SAT 91–100; BMI 21.2
[2024-04-25] MEDS: Levothyroxine 25 MCG TABLET PO (05:50)
[2024-04-25 06:43] LABS: Absolute Lymphocyte Count 0.59 X10^3/uL (0.83-4.51); Absolute Neutrophil Count 6.7 X10^3/uL (2.0-7.7); Hematocrit 26.2 % (37-47); Hemoglobin 8.4 g/dL (12.0-15.0); Lymphocyte # 0.59 X10^3/ul (0.83-4.51); Lymphocyte % 7.5 % (19-41); Mean Corp Hgb Conc 32.1 g/dL (32-36); Mean Corpuscular Hgb 28.8 pg (27.0-32.0); Mean Corpuscular Volume 89.7 fL (81-99); Mean Platelet Vol. 11.1 fl (6.2-12.0); Monocyte# 0.51 X10^3/uL; Monocyte% 6.5 % (0-10); NRBC Flagged by Analyzer 0 % (0-5); Neutrophil # 6.71 X10^3/uL (2.7-7.7); Neutrophil % 85.7 % (47-70); POSITIVE DIFFERENTIAL YES; Platelet Count 230 K/mm3 (150-450); RBC Distribution Width CV 12.8 % (11.6-14.6); RBC Distribution Width SD 42.2 fl (35.1-43.9); Red Blood Count 2.92 M/mm3 (4.2-5.4); White Blood Count 7.8 K/mm3 (4.4-11.0)
[2024-04-25 07:13] LABS: Anion Gap 14 (5-15); BUN 27 mg/dL (4-19); BUN/Creat Ratio 30.6 RATIO (10-20); Calcium 8.6 mg/dL (7.6-11.0); Carbon Dioxide 21.6 mmol/L (22.0-29.0); Chloride 107 mmol/L (96-108); EST Glomerular Filtration Rate 64 (>60); Estimated Creatinine Clearance 38.12 ml/min; Glucose 112 mg/dL (70-99); Potassium 2.9 mmol/L (3.3-5.1); Sodium Level 142 mmol/L (133-145)
[2024-04-25] MEDS: Pantoprazole Sodium 40 MG Tablet PO ×2 (09:03→21:25)
[2024-04-25] MEDS: Metoprolol Tartrate 50 MG Tablet PO ×2 (09:03→21:25)
[2024-04-25] MEDS: dexAMETHasone 4 MG Tablet 6 MG PO (09:04)
[2024-04-25] MEDS: Ceftriaxone 1 GM/50 ML BAG IV (09:04)
[2024-04-25] MEDS: Enoxaparin 40 MG/0.4 ML Syringe SC (09:04)
[2024-04-25 10:42] LABS: Troponin T High Sensitivity 18 ng/L (<=14)
--- NOTE | 2024-04-25 10:51 | EKG12_ITS ---
Test Reason : CP Blood Pressure : */* mmHG Vent. Rate : 59 BPM Atrial Rate : 59 BPM P-R Int : 148 ms QRS Dur : 92 ms QT Int : 430 ms P-R-T Axes : 30 2 -5 degrees QTcB Int : 425 ms Sinus bradycardia with occasional Premature ventricular complexes Nonspecific ST abnormality Abnormal ECG Confirmed by Kyle Yarbrough ([id number]), subeditor LIZZIE ROGER ([id number]) on 04/25/2024 2:22:24 PM Referred By: DERRICK Confirmed By: Kyle Yarbrough
[2024-04-25] MEDS: Ferrous Sulfate 325 MG Tablet PO ×2 (13:15→17:08)
[2024-04-25 13:27] LABS: TROPONIN VARIANCE 2 HR 1; Troponin T High Sens 2 HR 19 ng/L (<=14)
--- NOTE | 2024-04-25 17:52 | PCM.PN.HOSP ---
Reason for Visit Reason for Visit: Malaise Subjective Subjective Patient was some chest pain earlier that is resolved. Still in a little bit of oxygen. States she wants to go home but I really feel that we should watch her another 24 hours to make sure she is clinically stable with her chest pain earlier today and still requiring some oxygen. Patient voiced understanding but was frustrated Objective Data Objective Data Vital Signs: Vital Signs Temp Pulse Resp BP Pulse Ox O2 Del Method O2 Flow Rate 98.0 F 69 18 128/52 H 91 Room Air 2 04/25/24 08:30 04/25/24 09:03 04/25/24 08:30 04/25/24 08:30 04/25/24 15:09 04/25/24 14:00 04/25/24 08:30 Oxygen Flow Rate (L/min) 2 Oxygen Delivery Method Room Air Weight: 52.8 kg Body Mass Index (BMI) 21.2 Intake & Output: Intake and Output for Last 24 Hours 04/23/24 04/24/24 04/25/24 23:59 23:59 23:59 Intake Total 1300 / 1300 950 / 1050 250 / 250 Output Total 1000 / 1000 0 / 0 Balance 1300 / 1300 -50 / 50 250 / 250 Lab / Micro Data 04/25/24 05:23 04/25/24 05:23 Labs: Laboratory Results - last 24 hr 04/25/24 05:23: WBC 7.8, RBC 2.92 L, Hgb 8.4 L, Hct 26.2 L, MCV 89.7, MCH 28.8, MCHC 32.1, RDW Std Deviation 42.2, RDW Coeff of Jeferson 12.8, Plt Count 230, MPV 11.1, Immature Gran % (Auto) 0.300, Neut % (Auto) 85.7 H, Lymph % (Auto) 7.5 L, [place] % (Auto) 6.5, Eos % (Auto) 0.0, Baso % (Auto) 0.0, Absolute Neuts (auto) 6.7, Absolute Lymphs (auto) 0.59 L, Nucleated RBC % 0, Sodium 142, Potassium 2.9 L, Chloride Direct 107, Carbon Dioxide 21.6 L, Anion Gap 14, BUN 27 H, Creatinine 0.90, Estim Creat Clear Calc 38.12, Est GFR (MDRD) Non-Af 64, BUN/Creatinine Ratio 30.6 H, Glucose 112 H, Calcium 8.6 04/25/24 10:00: Troponin T High Sens 18 H D 04/25/24 : Troponin T Hi Sens 2 Hr 19 H, Troponin T Hi Sens 2Hr Delta 1 Micro: Microbiology 04/23/24 16:55 Urine, Clean Catch Urine Culture - Final Presumptive E. coli 04/23/24 13:17 Mucosa - Nose SARS-CoV-2, Influenza & RSV (PCR) - Final SARS-CoV-2 (COVID 19 PCR) Physical Exam Const alert, oriented x3, no apparent distress, average body habitus and well nourished Constitutional Narrative: Elderly, white female, walking the bathroom, sitting on the restroom, appears comfortable, nontoxic, frustrated that she cannot go home, trying to get out of bed independently HEENT normocephalic, head/scalp atraumatic, hearing grossly normal bilaterally and moist oral mucous membranes HEENT Narrative: Mallampati 2, no thrush Resp normal respiratory effort, no retractions, no use of accessory muscles and clear to auscultation bilaterally Auscultation: Negative for rales, rhonchi or wheezes Cardio regular rate, regular rhythm, S1 normal heart sound, S2 normal heart sound, no murmurs, no rub, no gallops and no clicks GI normal to inspection, nondistended, normoactive bowel sounds, soft to palpation and non-tender Extremity no clubbing, cyanosis or edema Extremity Narrative: 2+ radial and pedal pulses Neuro oriented x3, moves all extremities and no focal motor deficits Neuro Narrative: Ambulated well to the bathroom using a wheeled walker, somewhat impulsive Speech: speech normal Psych affect normal Psych Narrative: Very pleasant, interacts appropriately Assessment & Plan Assessment/Plan (1) UTI (urinary tract infection): (2) Debility: (3) COVID-19: PLAN: Plan Acute COVID-19 infection -3 days out from symptom onset -Continue Decadron day 3 of 10 -Continue remdesivir day 3 of 5 -Currently on 1 L nasal cannula -Wean as able -Will check ambulatory pulse ox tomorrow Chest pain -EKG was stable -Cardiac enzymes cycled -No significant elevation Hypokalemia -P.o. potassium replacement -Recheck in a.m. E. coli UTI -Continue ceftriaxone day 2 of 7 Generalized weakness/debility/malaise -Likely related to the above -PT/OT evaluated the patient felt she was safe to go home -Case management/social work following for assistance with discharge planning Hyperlipidemia/essential hypertension -Continue -Continue home metoprolol -Is also noted to be on losartan HCTZ but not verified GERD/history of GI bleed -Continue home PPI Hypothyroidism -Continue home levothyroxine Chronic anemia -Recent baseline unclear -Continue home iron supplementation DVT prophylaxis -Lovenox 40 mg Code Status -Full Code Charges/Coding Visit Charges Inpatient E&M: 66270 Subs Hosp L2
[2024-04-25 19:43] LABS: TROPONIN VARIANCE 4 HR 2; Troponin T High Sens 4 HR 16 ng/L (<=14)
[2024-04-25] MEDS: Potassium Chloride Oral Tablet 20 MEQ 60 MEQ PO (21:19)
[2024-04-25] MEDS: Atorvastatin Calcium 20 MG Tablet PO (21:25)
[2024-04-25] MEDS: Remdesivir 100 MG in 0.9% Normal Saline (250mL Bag) 230 ML 250 MG IV (21:26)
[2024-04-26] VITALS (7 sets, daily range): BP systolic 118–130; BP diastolic 52–70; PULSE 59–68; RESP 18; TEMP 36.5–36.8; O2SAT 95–100; BMI 22.4
[2024-04-26] MEDS: Levothyroxine 25 MCG TABLET PO (05:28)
[2024-04-26] MEDS: 0.9% Saline Lock 10 ML Syringe IV (05:28)
[2024-04-26 05:38] LABS: Hemoglobin 8.2 g/dL (12.0-15.0); Mean Corp Hgb Conc 32.8 g/dL (32-36); Mean Corpuscular Hgb 29.5 pg (27.0-32.0); Mean Corpuscular Volume 89.9 fL (81-99); Mean Platelet Vol. 10.7 fl (6.2-12.0); Platelet Count 210 K/mm3 (150-450); RBC Distribution Width CV 12.7 % (11.6-14.6); RBC Distribution Width SD 42.4 fl (35.1-43.9); Red Blood Count 2.78 M/mm3 (4.2-5.4); White Blood Count 6.1 K/mm3 (4.4-11.0)
[2024-04-26 05:54] LABS: Anion Gap 9 (5-15); BUN 27 mg/dL (4-19); Calcium 8.4 mg/dL (7.6-11.0); Carbon Dioxide 22.6 mmol/L (22.0-29.0); Chloride 113 mmol/L (96-108); EST Glomerular Filtration Rate 73 (>60); Estimated Creatinine Clearance 42.88 ml/min; Glucose 99 mg/dL (70-99); Potassium 3.6 mmol/L (3.3-5.1); Sodium Level 144 mmol/L (133-145)
[2024-04-26] MEDS: Ceftriaxone 1 GM/50 ML BAG IV (09:54)
[2024-04-26] MEDS: Enoxaparin 40 MG/0.4 ML Syringe SC (09:56)
[2024-04-26] MEDS: dexAMETHasone 4 MG Tablet 6 MG PO (09:56)
[2024-04-26] MEDS: Pantoprazole Sodium 40 MG Tablet PO (09:57)
[2024-04-26] MEDS: Metoprolol Tartrate 50 MG Tablet PO (09:57)
--- NOTE | 2024-04-26 11:43 | PCM.DC.SUM ---
Providers Date of Admission: 04/23/24 Date of Discharge: 04/26/24 Primary Care Physician: Dr. Gretta Burch DO Reason For Visit: COVID, UTI Diagnosis Discharge Diagnosis (1) UTI (urinary tract infection): Status: Acute Code(s): N39.0 - Urinary tract infection, site not specified (2) Debility: Status: Acute Code(s): R53.81 - Other malaise (3) COVID-19: Status: Acute Code(s): U07.1 - COVID-19 Medications at Discharge Home Medications levothyroxine 25 mcg tablet 25 mcg PO DAILY thyroid 12/05/14 losartan 100 mg-hydrochlorothiazide 12.5 mg tablet 1 tab PO DAILY bp 12/05/14 metoprolol tartrate 50 mg tablet 50 mg PO BID bp 12/05/14 potassium chloride 10 mEq tablet,extended release(part/cryst) 10 meq PO BID supplement 12/05/14 cyanocobalamin (vitamin B-12) 500 mcg tablet 500 mcg PO DAILY@0800 supplement 01/27/15 omeprazole 40 mg capsule,delayed release 40 mg PO BID stomach 11/09/16 rosuvastatin 10 mg tablet 10 mg PO QHS cholestrol 11/09/16 ferrous sulfate 325 mg (65 mg iron) tablet 325 mg PO BID anemia 12/05/18 hkmqdtul-elgf-egnz 8 mg-folic 400 mcg-K 50 mcg-lutein 300 mcg tablet 1 ea PO DAILY supplement 12/06/18 ascorbic acid (vitamin C) 500 mg tablet 500 mg PO TIDCM supplement 09/24/19 ondansetron 4 mg disintegrating tablet 4 mg PO TID PRN nausea and vomiting #21 tabs 08/06/22 cephalexin 500 mg capsule 500 mg PO BID #6 caps 04/26/24 dexamethasone 4 mg tablet 6 mg (1.5 x 4 mg) PO DAILY@0800 #9 tabs 04/26/24 Hospital Course Operations None Procedures EKG and - Summary of Care Provided Minutes Spent on Discharge: 36 Hospital Course: Mrs. Worthy is an 84-year-old white female who came to the emergency department at [facility] on 04/23/2024 with a chief complaint of malaise. Symptoms started about 3 days prior to presentation and she indicated she just felt sick overall. She reported she had never felt quite so bad before. Vital signs on presentation showed temperature of 35.9, heart rate 80, blood pressure was 111/66, respiratory rate was 20 and pulse ox was 98% on room air initially but saturations dropped below 88 and she required 2 L nasal cannula.. CBC showed leukopenia and anemia which is chronic and stable. Chemistry panel was overtly unremarkable. Troponin was unremarkable. Liver functions were normal. Her UA was suggestive of infection and her rapid COVID was positive. She was admitted to the medical floor and placed on remdesivir as well as Decadron being that she was still in the timeframe to do so and she was hypoxic on presentation requiring 2 L nasal cannula. With her UA being positive, we also placed her on ceftriaxone and urine culture was sent which resulted positive for E. coli pansensitive. She was seen by physical and Occupational Therapy and they felt that she was safe to go home without any ongoing services. She did develop some chest pain during her hospital course and cardiac enzymes were cycled and were unremarkable. EKG was unchanged. By the a.m. of 04/26/2024 she stated she was send overall much better and was stable to be discharged home. She was discharged with 6 mg of Decadron daily to complete a 10-day course with another 6 days as well as Keflex 500 mg p.o. twice daily for another 3 days to complete a 5-day course for urinary tract infection. Ambulatory pulse ox was pursued prior to discharge and she was stable on room air. We have asked her to follow-up with her primary care physician within the next 2 weeks. Discharge diagnoses: Acute COVID-19 infection Chest pain-resolved Hypokalemia-resolved E. coli UTI Generalized weakness/debility/malaise-resolved Hyperlipidemia Essential hypertension GERD History of GI bleed Hypothyroidism Chronic anemia Physical Exam Narrative Patient states she is feeling great and wants to go home today. Const alert, oriented x3, no apparent distress, average body habitus, no limitations, healthy appearing and well nourished Constitutional Narrative: Elderly, white female, sitting up in a chair at the bedside with her at the bedside, watching television, appears comfortable, on room air General Appearance: cooperative, comfortable, well kempt and well developed Exam Limitations: no limitations HEENT normocephalic, head/scalp atraumatic and moist oral mucous membranes HEENT Narrative: Marked hearing loss, Mallampati 2, no thrush Eyes EOMs intact bilaterally Eyes Narrative: No scleral icterus Neck supple Neck Narrative: Trachea midline Resp normal respiratory effort, no retractions, no use of accessory muscles and clear to auscultation bilaterally Auscultation: Negative for rales, rhonchi or wheezes Cardio regular rate, regular rhythm, S1 normal heart sound, S2 normal heart sound, no murmurs, no rub, no gallops and no clicks GI normal to inspection, nondistended, normoactive bowel sounds, soft to palpation and non-tender Extremity no clubbing, cyanosis or edema Extremity Narrative: 2+ radial and pedal pulses Skin skin turgor normal and no jaundice Neuro oriented x3, moves all extremities and no focal motor deficits Neuro Narrative: Mild generalized weakness Speech: speech normal Psych affect normal Psych Narrative: Very pleasant, interacts appropriately, very anxious to go home Weight / BMI Weight Weight: 55.7 kg Body Mass Index (BMI) 22.4 ABG / Lab / Microbiology Data 04/26/24 05:17 04/26/24 05:17 Laboratory: Laboratory Results - last 24 hr 04/25/24 16:08: Troponin T Hi Sens 4Hr 16 H, Troponin T Hi Sens 4Hr Delta 2 04/25/24 : Troponin T Hi Sens 2 Hr 19 H, Troponin T Hi Sens 2Hr Delta 1 04/26/24 05:17: WBC 6.1, RBC 2.78 L, Hgb 8.2 L, Hct 25.0 L, MCV 89.9, MCH 29.5, MCHC 32.8, RDW Std Deviation 42.4, RDW Coeff of Jeferson 12.7, Plt Count 210, MPV 10.7, Sodium 144, Potassium 3.6, Chloride Direct 113 H, Carbon Dioxide 22.6, Anion Gap 9, BUN 27 H, Creatinine 0.80, Estim Creat Clear Calc 42.88, Est GFR (MDRD) Non-Af 73, BUN/Creatinine Ratio 34.0 H, Glucose 99, Calcium 8.4, Phosphorus 3.0, Magnesium 2.0 Microbiology: Microbiology 04/23/24 16:55 Urine, Clean Catch Urine Culture - Final Presumptive E. coli 04/23/24 13:17 Mucosa - Nose SARS-CoV-2, Influenza & RSV (PCR) - Final SARS-CoV-2 (COVID 19 PCR) D/C Instructions Discharge Diet: Low fat / Low cholesterol Discharge Activity: Return to Normal Activity DC O2, CPAP, BIPAP Needs Home O2 Discharge instructions: No Meaningful Use Info Meaningful Use Meaningful Use Diagnoses (Choose all that apply): None applicable Ischemic Stroke Statin Dosing Therapy Reference: STATIN DOSE THERAPY REFERENCE: * Patients > 75 years receive moderate or high dose statin therapy. * Patients 75 years or YOUNGER should receive HIGH intensity statin dose unless contraindicated. You will be required to document reason for non-treatment if statin daily dose does not meet guidelines. HIGH DOSE STATIN THERAPY DAILY Atorvastatin > than or = to 40 mg Rosuvastatin > than or = to 20 mg Amlodipine + Atorvastatin > than or = to 2.5/40 mg Ezetimibe + Simvastatin 10/80 mg Simvastatin 80mg Discharge Plan Admission Admit Date/Time: 04/23/24 17:41 Primary Reason for Your Visit: General malaise Attending Provider: Nadine Triplett Primary Care Provider: Gretta Burch Consulting Providers: Kamar Solitario Discharge Orders/Prescriptions Prescriptions: New dexamethasone 4 mg Tablet 6 mg PO DAILY@0800 Qty: 9 0RF cephalexin 500 mg capsule 500 mg PO BID Qty: 6 0RF Continued levothyroxine 25 MCG tablet 25 mcg PO DAILY Patient Comments: HYPOTHYROIDISM metoprolol tartrate 50 MG tablet 50 mg PO BID Patient Comments: HYPERTENSION potassium chloride 10 MEQ tablet 10 meq PO BID Patient Comments: SUPPLEMENT losartan-hydrochlorothiazide 1 TAB tablet 1 tab PO DAILY Patient Comments: HYPERTENSION cyanocobalamin (vitamin B-12) 500 MCG tablet 500 mcg PO DAILY@0800 Patient Comments: SUPPLEMENT omeprazole 40 MG capsule 40 mg PO BID Patient Comments: acid reflux rosuvastatin 10 MG tablet 10 mg PO QHS ferrous sulfate 325 MG tablet 325 mg PO BID cffevfib-lww-nrvo-FA-vit K-lut 1 EACH tablet 1 ea PO DAILY ascorbic acid (vitamin C) 500 MG tablet 500 mg PO TIDCM Patient Comments: VITAMIN Rx Instructions: take with oral iron ondansetron 4 mg tablet,disintegrating 4 mg PO TID PRN (Reason: nausea and vomiting) Qty: 21 0RF Referrals / Follow Up: Gretta Burch DO [Primary Care Provider] - Within 2 Weeks Disposition Disposition (needs filled in before D/C Order can be placed): Home, Self Care Charges/Coding Visit Charges Inpatient E&M: 22313 Disch Hosp >30min
== END 2024-04-26 12:58 | disposition home or self-care (01) | DRG 178 ==
LOC: ED 17:48 → PCU 19:47
PROVIDERS: Emergency Provider Surgery; PCP Internal Medicine; Visit Provider Internal Medicine
DX: U07.1 COVID-19 (principal); N39.0 Urinary tract infection, site not specified; B96.20 Unspecified Escherichia coli [E. coli] as the cause of diseases classified elsewhere; I10 Essential (primary) hypertension; E03.9 Hypothyroidism, unspecified; E78.5 Hyperlipidemia, unspecified; K21.9 Gastro-esophageal reflux disease without esophagitis; E87.6 Hypokalemia; Z86.73 Personal history of transient ischemic attack (TIA), and cerebral infarction without residual deficits; R53.81 Other malaise; Z87.891 Personal history of nicotine dependence; R09.02 Hypoxemia; Z79.890 Hormone replacement therapy; Z79.899 Other long term (current) drug therapy; R07.9 Chest pain, unspecified
CPT/HCPCS: 36415; 71046; 80048; 80053; 81001; 83735; 84075; 84100; 84484; 85025; 85027; 87086; 87088; 87186; 87631; 93005; 97116; 97162; 97530; 99285; A4216; J0248; J1940; J2405

== ENCOUNTER 2024-05-28 05:13 | Emergency (ER) | payer MEDICARE, OTHER, SELFPAY ==
[2024-05-28 05:15] VITALS: BP 150/77; PULSE 73; RESP 16; TEMP 36.3; O2SAT 95; BMI 21.1
--- NOTE | 2024-05-28 05:21 | RAD_ITS ---
EXAM: Ribs unilateral minimum three views with PA chest CLINICAL HISTORY: Fell and left rib pain COMPARISON: Chest radiograph 04/23/2024 TECHNIQUE: PA view of the chest and three views left ribs, 4 total images FINDINGS: The lungs appear clear. No pneumothorax or pleural effusion identified. The cardiac and mediastinal contours appear within limits. Nondisplaced acute appearing lateral left 9th rib fracture. RAD/Ribs Uni Min 3V w/PA Chest IMPRESSION: Nondisplaced acute appearing lateral left 9th rib fracture. The lungs appear clear. No pneumothorax or pleural effusion identified. Reading Location: [id number]
--- NOTE | 2024-05-28 05:22 | ED.VIS.FALL ---
HPI HPI - Fall History of Present Illness Chief Complaint: Fall Informant: patient and spouse/S.O. Occured/Mechanism Mechanism/Context: Yes same level fall Usually ambulates: Cane Pain/Injury Pain Location: chest (Fell and injured her left lateral rib cage.) Quality of Pain: Sharp Current Severity: Moderate Maximum Severity: Moderate Associated Symptoms Associated Symptoms: Negative for Parasthesias, Weakness, Loss of function, Inability to ambulate, Loss of consciousness or Amnesia Narrative Narrative: 84-year-old female history of prior stroke, anemia and hypertension. Recent hospitalization for COVID. Last Sunday about 5 to 6 days ago she was standing at the organ at home. Fell injuring her left lateral rib cage. The pain has not gotten any better. It is worse with movement. Denies LOC. Denies head injury. Denies neck pain. Denies illness. Prior similar symptoms: No Recent Illness/Hospitalization: Yes PFSH PFSH Medical History Stroke/cerebrovascular accident Murmur GI bleed Former smoker Home Medications ?Medication ?Instructions ?Recorded ?Last Taken ?Type levothyroxine 25 mcg tablet 25 mcg PO DAILY thyroid 12/05/14 09/23/19 History losartan 100 1 tab PO DAILY bp 12/05/14 09/23/19 History mg-hydrochlorothiazide 12.5 mg tablet metoprolol tartrate 50 mg tablet 50 mg PO BID bp 12/05/14 09/23/19 History potassium chloride 10 mEq 10 meq PO BID supplement 12/05/14 09/23/19 History tablet,extended release(part/cryst) cyanocobalamin (vitamin B-12) 500 500 mcg PO DAILY@0800 supplement 01/27/15 09/23/19 History mcg tablet omeprazole 40 mg capsule,delayed 40 mg PO BID stomach 11/09/16 09/23/19 History release rosuvastatin 10 mg tablet 10 mg PO QHS cholestrol 11/09/16 09/23/19 History ferrous sulfate 325 mg (65 mg 325 mg PO BID anemia 12/05/18 09/23/19 History iron) tablet kewuntwh-kzia-mdng 8 mg-folic 400 1 ea PO DAILY supplement 12/06/18 09/23/19 History mcg-K 50 mcg-lutein 300 mcg tablet ascorbic acid (vitamin C) 500 mg 500 mg PO TIDCM supplement 09/24/19 09/23/19 History tablet ondansetron 4 mg disintegrating 4 mg PO TID PRN nausea and 08/06/22 Unknown Rx tablet vomiting #21 tabs cephalexin 500 mg capsule 500 mg PO BID #6 caps 04/26/24 Unknown Rx dexamethasone 4 mg tablet 6 mg (1.5 x 4 mg) PO DAILY@0800 #9 04/26/24 Unknown Rx tabs hydrochlorothiazide 12.5 mg capsule 12.5 mg PO DAILY 05/28/24 Unknown History hydrocodone-acetaminophen 5-325mg 1 tab PO Q4H PRN PRN Pain 3 days 05/28/24 Unknown Rx 5mg-325mg #14 TABLETS losartan 100 mg tablet 100 mg PO DAILY 05/28/24 Unknown History Allergy/AdvReac Type Severity Reaction Status Date / Time adhesive Allergy Rash Verified 05/28/24 05:14 erythromycin base (From AdvReac muscle pain Verified 05/28/24 05:14 Staticin) ethyl alcohol (From Staticin) AdvReac muscle pain Verified 05/28/24 05:14 niacin AdvReac REDNESS/FLU Verified 05/28/24 05:14 SHING Social History Smoking Status: Former smoker ROS ROS ED ROS Narrative Denies recent illness. Recently had COVID but denies being sick now. Constitutional Constitutional ED: Denies chills or fever(s) Eyes Eyes: Denies blurry vision ENT ENT ED: Denies ear pain Cardiovascular Cardiovascular: Denies chest pain Respiratory/Chest Respiratory/Chest: Denies cough or dyspnea Gastrointestinal Gastrointestinal: Denies abdominal pain Genitourinary Genitourinary ED: Denies dysuria or hematuria Musculoskeletal Musculoskeletal: Denies arthralgias, back pain, myalgias or neck pain Integumentary Denies abscess or Abrasions Neurologic Neurologic: Denies headache(s) Psychiatric Psychiatric: Denies anxiety Endocrine Endocrinology: Denies polydipsia Hematologic/Lymphatic Hematologic/Lymphatic: Denies easy bleeding, easy bruising or lymphadenopathy Allergic/Immunologic Allergic/Immunologic ED: Denies mouth swelling, tongue swelling or urticaria EXAM Physical Exam Narrative Exam Narrative: Well-appearing 84-year-old female sitting upright in bed. Vital signs are stable and afebrile. Pulse ox 95% on room air no hypoxia. No distress. seated in the room. H EENT exam pupils round reactive light. Moist mucous membranes. No trauma or bruising to her face or scalp. Nontender. C-spine and trachea nontender. Back there is no spinal tenderness. No back tenderness. Lungs clear to auscultation bilaterally. Heart regular rhythm rate about 70 no murmur. Chest wall her left lateral rib cage is tender. There is no ecchymosis or bruising. No subcu air or crepitance. Abdomen is soft and nontender. No peritoneal signs. No bruising. Pelvic girdle intact. Moving all 4 extremities. Normal rehabilitation medicine physician strength. Normal dorsi plantarflexion. Normal range of motion. No deformity. No tenderness. Neurologically she is awake alert. Answering questions following commands. GCS of 15. Const Vital Signs: 05/28/24 05:15 05/28/24 05:15 Temperature 97.4 F L Temperature Source Oral Pulse Rate 73 Respiratory Rate 16 Respiratory Effort Normal Respiratory Depth Normal Respiratory Pattern Normal Blood Pressure 150/77 H Blood Pressure Mean 101 Pulse Ox 95 95 Oxygen Delivery Method Room Air Room Air Positive well nourished and well developed; Negative for obese, cachectic, contractures or unkempt General Appearance ED: well developed and NAD; Negative for unkempt, cachectic or contractures Nutritional Appearance: Negative for cachectic or obese HEENT Reports normocephalic atraumatic; Negative for trauma, contusion, hematoma or tenderness Eyes PERRL and EOMs intact bilaterally Neck full ROM, no lymphadenopathy and supple Chest Wall inspection of chest normal; Negative for palpation of chest normal Chest Narrative: Left lateral rib cage tenderness. No bruising. No subcu air or crepitance. No bony deformity. Resp normal respiratory effort, no retractions and clear to auscultation bilaterally Auscultation: Negative for rales, rhonchi, wheezes or diminished lung sounds Cardio regular rate, regular rhythm, S1 normal heart sound, S2 normal heart sound and no murmurs GI non-tender, non-distended and no masses Palpation: soft; Negative for guarding or rebound tenderness present Back/Spine no CVA tenderness General Back: Negative for CVA tenderness Cervical Spine: Negative for cervical spine tenderness Lumbar Spine / Lower Back: Negative for lumbar spinal tenderness Neuro oriented x3, CN's II-XII intact bilaterally, moves all extremities and no focal motor deficits Austin Coma Scale: document GCS findings Spontaneous Obeys Commands Oriented 15 Sensorium / Orientation: alert, oriented to person, oriented to place and oriented to time; Negative for orientation impaired Motor Exam: strength 5/5 throughout Psych mental status grossly normal and thought process normal Appearance: Negative for unkempt Mood & Affect: Negative for depressed, anxious or tearful Skin Lesions: no lesions Rashes: no rashes MDM MDM MDM Narrative Medical decision making narrative: 84-year-old female fell 5 to 6 days ago at home last Sunday. Injuring her left lateral rib cage. Complaining of pain and reproducible tenderness. X-ray with rib series will be obtained. Patient had recent labs due to a recent hospitalization. Patient took Tylenol at home for pain. Was offered but did not want anything else for pain at this time. Repeat exam patient is doing well at 6:05 AM. I went over x-ray results of both her and her . She requested some for pain for home I wrote her prescription for [place]. History & Record Review Discussion w/independent historian: Patient and Family Additional record(s) reviewed:: Prior inpatient record, Prior outpatient record, Prior ED visit and Prior labs Radiography Chest X-Ray - ED: 2 View and Read by ED Physician Diagnostic Testing: Clinical Impression(s) from Imaging Studies Ribs w/Chest X-Ray 05/28/24 05:21 IMPRESSION: Nondisplaced acute appearing lateral left 9th rib fracture. The lungs appear clear. No pneumothorax or pleural effusion identified. Reading Location: [facility] Chest x-ray, 4 views AP and lateral with rib series, interpreted by myself and the radiologist and we agree it looks like the patient has a nondisplaced left ninth rib fracture. No pneumothorax or hemothorax. Discharge Plan Triage Chief Complaint: Fall ED Provider: Mane Lee Dx/Rx/DC Orders Clinical Impression: Fall, Closed rib fracture Instructions: ED Rib Fracture Prescriptions: New hydrocodone-acetaminophen 5-325 mg tablet 1 tab PO Q4H PRN PRN (Reason: Pain) 3 Days Qty: 14 0RF No Action levothyroxine 25 MCG tablet 25 mcg PO DAILY Patient Comments: HYPOTHYROIDISM metoprolol tartrate 50 MG tablet 50 mg PO BID Patient Comments: HYPERTENSION potassium chloride 10 MEQ tablet 10 meq PO BID Patient Comments: SUPPLEMENT losartan-hydrochlorothiazide 1 TAB tablet 1 tab PO DAILY Patient Comments: HYPERTENSION cyanocobalamin (vitamin B-12) 500 MCG tablet 500 mcg PO DAILY@0800 Patient Comments: SUPPLEMENT omeprazole 40 MG capsule 40 mg PO BID Patient Comments: acid reflux rosuvastatin 10 MG tablet 10 mg PO QHS ferrous sulfate 325 MG tablet 325 mg PO BID gorcnigy-wbg-hhtx-FA-vit K-lut 1 EACH tablet 1 ea PO DAILY ascorbic acid (vitamin C) 500 MG tablet 500 mg PO TIDCM Patient Comments: VITAMIN Rx Instructions: take with oral iron ondansetron 4 mg tablet,disintegrating 4 mg PO TID PRN (Reason: nausea and vomiting) Qty: 21 0RF dexamethasone 4 mg Tablet 6 mg PO DAILY@0800 Qty: 9 0RF cephalexin 500 mg capsule 500 mg PO BID Qty: 6 0RF hydrochlorothiazide 12.5 mg capsule 12.5 mg PO DAILY losartan 100 mg tablet 100 mg PO DAILY Primary Care Provider: Gretta Burch Referrals: Gretta Burch, [Primary Care Provider] - As Needed Activity Restrictions/Additional Instructions: You have a left ninth rib fracture. A broken rib. Ice to that area. Use a pillow to brace the rib. Motrin and/or Tylenol for pain. If you need the stronger pain medication [place] do not take any additional Tylenol with it. Ice to your rib cage. Follow-up with your doctor as needed. Print Language: Divehi Disposition Disposition: Home, Self Care
[2024-05-28 06:12] VITALS: BP 149/61; PULSE 71; RESP 18; TEMP 36.3; O2SAT 98
== END 2024-05-28 06:20 | disposition home or self-care (01) ==
PROVIDERS: Emergency Provider Emergency Medicine; PCP Internal Medicine; Visit Provider Emergency Medicine
DX: S22.32XA Fracture of one rib, left side, initial encounter for closed fracture (principal); W18.39XA Other fall on same level, initial encounter; Y92.009 Unspecified place in unspecified non-institutional (private) residence as the place of occurrence of the external cause; I10 Essential (primary) hypertension; Z79.899 Other long term (current) drug therapy; Z86.16 Personal history of COVID-19; Z87.891 Personal history of nicotine dependence
CPT/HCPCS: 71101; 99282